=== PATIENT | female | born 1940 | race Caucasian/White ===

== ENCOUNTER 2017-07-19 15:29 | Inpatient (IN) | payer MEDICARE, OTHER ==
[~2017-07-19] VITALS: Ht 160 cm; Wt 86.2 kg
[2017-07-19 16:49] LABS: CLARITY,URINE TURBID (CLEAR); COLOR,URINE RED (YELLOW); LEUKOCYTE ESTERASE ,URINE 1+ (NEGATIVE); NITRITE,URINE NEGATIVE (NEGATIVE)
[2017-07-19 16:50] LABS: BILIRUBIN,URINE 2+ (NEGATIVE); KETONES,URINE NEGATIVE (NEGATIVE); PROTEIN,URINE DIPSTICK 3+ (NEGATIVE); URINE UROBILINOGEN 0.2 mg/dL (0.2 - 1)
[2017-07-19 17:00] LABS: AMORPHOUS SEDIMENT,URINE FEW (FEW); BACTERIA,URINE FEW /HPF; EPITHELIAL CELLS,URINE RARE /LPF; MUCUS,URINE FEW (RARE); RBC,URINE >50 /HPF (0-5)
[2017-07-19] MEDS ORDERED: SODIUM CHLORIDE 0.9% 50ML 50 ML ONE (20:43)
[2017-07-19] MEDS ORDERED: IOPAMIDOL 370 MG/ML 200 ML INFUS..BTL INJ ONE (20:44)
[2017-07-19 21:46] LABS: RED BLOOD COUNT 3.84 x10e6/uL (3.6-5.1)
[2017-07-19 21:47] LABS: ANION GAP 15.1 mmol/L (8-16); BLOOD UREA NITROGEN 20 mg/dL (7-26); BUN/CREATININE RATIO 29 (6-25); CARBON DIOXIDE 27 mmol/L (22-29); CHLORIDE 103 mmol/L (98-107); EOSINOPHILS % 0.1 % (0.0-6.0); EST GLOMERULAR FILTRATION RATE > 60 ML/MIN (60-); HEMATOCRIT 27.2 % (34.2-44.1); HEMOGLOBIN 7.9 g/dL (12.0-16.0); LYMPHOCYTES % 1.2 % (18.0-39.1); MEAN CORPUSCULAR HEMOGLOBIN 20.6 pg (28-32); MEAN CORPUSCULAR VOLUME 70.8 fL (81-99); MONOCYTES % 0.4 % (4.4-11.3); NEUTROPHILS % 2.8 % (38.7-80.0); PLATELET COUNT 132 x10e3/uL (140-360); POTASSIUM 4.1 mmol/L (3.5-5.1); RED CELL DISTRIBUTION WIDTH 17.5 % (11.7-14.4); SODIUM 141 mmol/L (136-145)
[2017-07-19 21:48] LABS: ALANINE AMINOTRANSFERASE 13 IU/L (0-55); ALBUMIN 3.6 g/dL (3.5-5.0); ALBUMIN/GLOBULIN RATIO 1.2 (0.8-2.0); ALKALINE PHOSPHATASE 45 IU/L (40-150); CALCIUM 9.2 mg/dL (8.4-10.2); GLUCOSE 260 mg/dL (74-118)
[2017-07-19] MEDS ORDERED: SODIUM CHLORIDE 0.9% 100 ML ONE (22:12)
--- NOTE | 2017-07-19 22:16 | Diagnostic Imaging Report ---
EXAM: CT ABDOMEN AND PELVIS with and without IV CONTRAST DATE: 07/19/2017 6:06 PM Time stamp on Exam: 2109 hours INDICATION: Blood in urine COMPARISON: None TECHNIQUE: The abdomen and pelvis were scanned using a multidetector helical scanner. Coronal and sagittal reformations were obtained. CT Urogram protocol performed. IV Contrast: 100 cc Isovue-370 Oral Contrast: None CTDIvol has been reviewed. It is below the limits set by the Radiation Protocol Committee (RPC). FINDINGS: RIGHT KIDNEY: * No nephroureterolithiasis. * No enhancing masses. * Adequate opacification of the ureter. Normal in course and caliber without filling defect. * No hydronephrosis. The calyces are sharp without filling defect. * Simple cyst measuring 1.7 cm posterior lateral aspect of the superior pole LEFT KIDNEY: * No nephroureterolithiasis. * No enhancing masses. * Adequate opacification of the ureter. Normal in course and caliber without filling defect. * No hydronephrosis. The calyces are sharp without filling defect. BLADDER: Mixed density filling defect in the bladder measuring approximately 6 cm. REPRODUCTIVE ORGANS: Unremarkable LOWER THORAX: No consolidations LIVER: No masses BILIARY: Cholelithiasis without evidence of acute cholecystitis. No ductal dilatation. SPLEEN: No masses PANCREAS: No masses ADRENALS: No nodules GI TRACT: No distention, wall thickening or evidence of obstruction. VESSELS: Atherosclerotic changes without aneurysm. PERITONEUM/RETROPERITONEUM: No free air or fluid LYMPH NODES: No lymphadenopathy SOFT TISSUES: Unremarkable BONES: No suspicious bone lesions. IMPRESSION: There is an approximately 6 cm irregular mixed density filling defect in the bladder. The differential includes blood clot and/or bladder mass. Urology consult is recommended for further evaluation. No nephroureterolithiasis or ureteral filling defect. Signed by: Dr. Shania Estrada M.D. on 07/19/2017 10:13 PM
[2017-07-19] MEDS ORDERED: SODIUM CHLORIDE 0.9% 250ML 250 ML IV ONE (22:45)
[2017-07-19] MEDS ORDERED: FUROSEMIDE INJ 10 MG/ML 2 ML VIAL IV PRN (22:45)
[2017-07-19] MEDS: SODIUM CHLORIDE 0.9% 1000ML 1,000 ML IV SCH (23:06)
[2017-07-19] MEDS ORDERED: ONDANSETRON HCL 4 MG ORAL DISINTEGRATING TAB PO PRN (23:15)
[2017-07-19] MEDS ORDERED: DEXTROSE 50% SYRINGE 50 ML IV PRN (23:15)
--- OUTSIDE RECORDS SUMMARY | 2017-07-19 23:15 | XMS REPORT ---
[facility] Address Unknown Phone Unavailable Care Team Providers Care Professor Of Theater Name Role Phone HERNANDEZ MARSH Unavailable Unavailable Problems This patient has no known problems. Allergies, Adverse Reactions, Alerts This patient has no known allergies or adverse reactions. Medications This patient has no known medications. Results Test Description Test Time Test Comments Text Results Atomic Results Result Comments CT ABDOMEN/PELVIS WOW [place] [address] Patient Name: VERN CHU MR #: [id number] : 1940 Age/Sex: 76/F Req #: [id number] Adm Physician: Ordered by: SANDER MARLOW NP Report #: [id number] Location: ER Room/Bed: Procedure: [id number] CT/CT ABDOMEN/PELVIS WOW Exam Date: 07/19/17 Exam Time: 2110 REPORT STATUS: Signed EXAM: CT ABDOMEN AND PELVIS with and without IV CONTRAST DATE: 07/19/2017 6:06 PM Time stamp on Exam: 2109 hours INDICATION: Blood in urine COMPARISON: None TECHNIQUE: The abdomen and pelvis were scanned using a multidetector helical scanner. Coronal and sagittal reformations were obtained. CT Urogram protocol performed. IV Contrast: 100 cc Isovue-370 Oral Contrast: None CTDIvol has been reviewed. It is below the limits set by the Radiation Protocol Committee (RPC). FINDINGS: RIGHT KIDNEY: * No nephroureterolithiasis. * No enhancing masses. * Adequate opacification of the ureter. Normal in course and caliber without filling defect. * No hydronephrosis. The calyces are sharp without filling defect. * Simple cyst measuring 1.7 cm posterior lateral aspect of the superior pole LEFT KIDNEY: * No nephroureterolithiasis. * No enhancing masses. * Adequate opacification of the ureter. Normal in course and caliber without filling defect. * No hydronephrosis. The calyces are sharp without filling defect. BLADDER: Mixed density filling defect in the bladder measuring approximately 6 cm. REPRODUCTIVE ORGANS: Unremarkable LOWER THORAX: No consolidations LIVER: No masses BILIARY: Cholelithiasis without evidence of acute cholecystitis. No ductal dilatation. SPLEEN: No masses PANCREAS: No masses ADRENALS: No nodules GI TRACT: No distention, wall thickening or evidence of obstruction. VESSELS: Atherosclerotic changes without aneurysm. PERITONEUM/RETROPERITONEUM : No free air or fluid LYMPH NODES: No lymphadenopathy SOFT TISSUES: Unremarkable BONES: No suspicious bone lesions. IMPRESSION: There is an approximately 6 cm irregular mixed density filling defect in the bladder. The differential includes blood clot and/or bladder mass. Urology consult is recommended for further evaluation. No nephroureterolithiasis or ureteral filling defect. Signed by: Dr. Bhavesh Estrada M.D. on 07/19/2017 10:13 PM Dictated By: BHAVESH ESTRADA MD 12 Transcribed By: LILLIAN on 07/19/172212 COPY TO: SANDER MARLOW NP
[2017-07-19] MEDS: CEFTRIAXONE SOD 1 GM VIAL IV SCH (23:18)
[2017-07-20] VITALS (9 sets, daily range): BP systolic 124–149; BP diastolic 56–67
[2017-07-20] MEDS: INSULIN REGULAR, HUMAN 100 UNIT/1 ML 3ML VIAL SQ SCH ×5 (06:37→23:58)
[2017-07-20] MEDS ORDERED: NITROSTAT0.4 MG SL (08:43)
[2017-07-20] MEDS ORDERED: LANTUS 3ML100 UNITS/ SC (08:43)
[2017-07-20] MEDS ORDERED: CARVEDILOL3.125 MG PO (08:43)
[2017-07-20] MEDS ORDERED: NEXIUM40 MG PO (08:43)
[2017-07-20] MEDS ORDERED: POTASSIUM CHLO10 ME1 PO (08:43)
[2017-07-20] MEDS ORDERED: METFORMIN HCL850 MG PO (08:43)
[2017-07-20] MEDS ORDERED: LASIX20 MG PO (08:43)
[2017-07-20] MEDS ORDERED: HUMALOG100 UNIT/1 SC (08:43)
[2017-07-20] MEDS ORDERED: ASPIR 8181 MG PO (08:43)
[2017-07-20] MEDS ORDERED: CRESTOR10 MG PO (08:43)
[2017-07-20] MEDS ORDERED: GABAPENTIN100 MG PO (08:43)
[2017-07-20] MEDS ORDERED: VICTOZA 2-0.6 MG/0.1 SC (08:43)
[2017-07-20] MEDS ORDERED: BELLADONNA/OPIUM 60 MG SUPP PR PRN (09:30)
[2017-07-20] MEDS: SODIUM CHLORIDE 0.9% 1000ML 1,000 ML IV SCH ×2 (09:33→19:06)
[2017-07-20] MEDS ORDERED: NITROGLYCERIN 0.4 MG SUBL SL PRN (10:00)
[2017-07-20 10:18] LABS: BASOPHILS % 0.5 % (0.0-1.0); EOSINOPHILS # (AUTO) 0.2 (0.0-0.4); EOSINOPHILS % 2.5 % (0.0-6.0); HEMATOCRIT 33.2 % (34.2-44.1); HEMOGLOBIN 10.1 g/dL (12.0-16.0); LYMPHOCYTES # (AUTO) 1.3 (1.0-3.2); LYMPHOCYTES % 20.4 % (18.0-39.1); MEAN CORPUSCULAR HEMOGLOBIN 21.9 pg (28-32); MEAN CORPUSCULAR HGB CONC 30.4 g/dL (31-35); MEAN CORPUSCULAR VOLUME 71.9 fL (81-99); MONOCYTES # (AUTO) 0.6 (0.2-0.8); MONOCYTES % 9.7 % (4.4-11.3); NEUTROPHILS # (AUTO) 4.2 (2.1-6.9); NEUTROPHILS % 66.7 % (38.7-80.0); PLATELET COUNT 124 x10e3/uL (140-360); RED BLOOD COUNT 4.62 x10e6/uL (3.6-5.1)
[2017-07-20 10:34] LABS: ALANINE AMINOTRANSFERASE 14 IU/L (0-55); ALBUMIN 3.3 g/dL (3.5-5.0); ALKALINE PHOSPHATASE 42 IU/L (40-150); ANION GAP 13.4 mmol/L (8-16); BLOOD UREA NITROGEN 12 mg/dL (7-26); BUN/CREATININE RATIO 18 (6-25); CALCIUM 8.9 mg/dL (8.4-10.2); CARBON DIOXIDE 30 mmol/L (22-29); CHLORIDE 102 mmol/L (98-107); CREATININE, SERUM 0.66 mg/dL (0.57-1.11); EST GLOMERULAR FILTRATION RATE > 60 ML/MIN (60-); GLUCOSE 213 mg/dL (74-118); POTASSIUM 4.4 mmol/L (3.5-5.1); SODIUM 141 mmol/L (136-145)
[2017-07-20] MEDS: CEFTRIAXONE SOD 1 GM VIAL IV SCH ×2 (11:51→22:46)
[2017-07-20] MEDS: INSULIN LISPRO 100 UNIT/1 ML 3ML VIAL SQ SCH ×2 (12:31→17:21)
[2017-07-20] MEDS ORDERED: NON-FORMULARY MEDICATION (Insulin Lispro (Humalog) 20 UNIT) SC SCH (15:00)
[2017-07-20] MEDS: METFORMIN HCL 850 MG TAB PO SCH (17:00)
[2017-07-20] MEDS: CARVEDILOL 3.125 MG TAB PO SCH (17:19)
[2017-07-20] MEDS: GABAPENTIN 100 MG CAP PO SCH (17:20)
[2017-07-20] MEDS: INSULIN DETEMIR 100 UNIT/ML PEN SQ SCH (20:49)
[2017-07-20] MEDS: SIMVASTATIN 20 MG TAB PO SCH (20:49)
[2017-07-20] MEDS: MORPHINE SULFATE 2 MG/ML SYR IV PRN (22:44)
[2017-07-21] VITALS: BP 147/70
[2017-07-21] MEDS: SODIUM CHLORIDE 0.9% 1000ML 1,000 ML IV SCH ×2 (03:24→15:31)
[2017-07-21 04:00] VITALS: BP 163/79
[2017-07-21] MEDS: INSULIN REGULAR, HUMAN 100 UNIT/1 ML 3ML VIAL SQ SCH ×4 (05:58→20:45)
[2017-07-21 07:30] VITALS: BP 128/63
[2017-07-21] MEDS: INSULIN LISPRO 100 UNIT/1 ML 3ML VIAL SQ SCH ×3 (07:30→16:30)
[2017-07-21] MEDS: METFORMIN HCL 850 MG TAB PO SCH ×2 (08:00→17:13)
[2017-07-21] MEDS: CARVEDILOL 3.125 MG TAB PO SCH ×2 (08:58→17:13)
[2017-07-21] MEDS ORDERED: SIMVASTATIN 40 MG TAB PO SCH (09:00)
[2017-07-21] MEDS: LIRAGLUTIDE 1.8 MG SC SCH (09:00)
[2017-07-21] MEDS: GABAPENTIN 100 MG CAP PO SCH ×2 (09:00→17:13)
[2017-07-21] MEDS: CEFTRIAXONE SOD 1 GM VIAL IV SCH ×2 (10:33→22:40)
[2017-07-21 11:03] VITALS: BP 128/63
[2017-07-21] MEDS ORDERED: IOPAMIDOL 610MG/1ML 300 MG/ML VIAL IV ONE (11:55)
[2017-07-21] MEDS ORDERED: BELLADONNA/OPIUM 60 MG SUPP PR ONE (12:15)
[2017-07-21] MEDS ORDERED: FENTANYL CITRATE/PF 100MCG/2 ML INJ ONE (13:25)
[2017-07-21] MEDS: MORPHINE SULFATE 2 MG/ML SYR IV PRN (14:11)
[2017-07-21 16:27] VITALS: BP 148/75
[2017-07-21] MEDS: PANTOPRAZOLE SOD 40 MG TABEC PO SCH (17:12)
[2017-07-21] MEDS: FUROSEMIDE 20 MG TAB PO SCH (17:12)
[2017-07-21] MEDS: POTASSIUM CHLORIDE 10 MEQ TABCR PO SCH (17:12)
[2017-07-21] MEDS ORDERED: LIDOCAINE HCL 2% LOCAL INJ 5 ML SDV VIAL INJ ONE (17:25)
[2017-07-21] MEDS ORDERED: ONDANSETRON HCL INJ 2 MG/ML VIAL ONE (17:25)
[2017-07-21] MEDS ORDERED: PROPOFOL IV EMULSION 10 MG/ML 20 ML VIAL ONE (17:25)
[2017-07-21] MEDS ORDERED: SEVOFLURANE INHAL SOLN 250 ML PEN BTL ONE (17:25)
[2017-07-21 20:00] VITALS: BP 114/53
[2017-07-21] MEDS: INSULIN DETEMIR 100 UNIT/ML PEN SQ SCH (20:45)
[2017-07-21] MEDS: SIMVASTATIN 20 MG TAB PO SCH (20:45)
[2017-07-22] VITALS (7 sets, daily range): BP systolic 120–141; BP diastolic 56–95
[2017-07-22] MEDS: SODIUM CHLORIDE 0.9% 1000ML 1,000 ML IV SCH ×4 (03:00→21:06)
[2017-07-22 07:09] LABS: BASOPHILS % 0.5 % (0.0-1.0); EOSINOPHILS # (AUTO) 0.2 (0.0-0.4); EOSINOPHILS % 3.4 % (0.0-6.0); HEMATOCRIT 31.4 % (34.2-44.1); HEMOGLOBIN 9.3 g/dL (12.0-16.0); LYMPHOCYTES # (AUTO) 1.3 (1.0-3.2); LYMPHOCYTES % 20.6 % (18.0-39.1); MEAN CORPUSCULAR HEMOGLOBIN 21.7 pg (28-32); MEAN CORPUSCULAR HGB CONC 29.6 g/dL (31-35); MEAN CORPUSCULAR VOLUME 73.4 fL (81-99); MONOCYTES # (AUTO) 0.6 (0.2-0.8); MONOCYTES % 9.3 % (4.4-11.3); NEUTROPHILS # (AUTO) 4.1 (2.1-6.9); NEUTROPHILS % 65.7 % (38.7-80.0); PLATELET COUNT 116 x10e3/uL (140-360); RED BLOOD COUNT 4.28 x10e6/uL (3.6-5.1); RED CELL DISTRIBUTION WIDTH 19.4 % (11.7-14.4)
[2017-07-22 07:44] LABS: ANION GAP 12.3 mmol/L (8-16); BLOOD UREA NITROGEN 6 mg/dL (7-26); BUN/CREATININE RATIO 9 (6-25); CALCIUM 8.4 mg/dL (8.4-10.2); CARBON DIOXIDE 28 mmol/L (22-29); CHLORIDE 108 mmol/L (98-107); CREATININE, SERUM 0.65 mg/dL (0.57-1.11); EST GLOMERULAR FILTRATION RATE > 60 ML/MIN (60-); GLUCOSE 160 mg/dL (74-118); POTASSIUM 4.3 mmol/L (3.5-5.1); SODIUM 144 mmol/L (136-145)
[2017-07-22] MEDS: INSULIN LISPRO 100 UNIT/1 ML 3ML VIAL SQ SCH ×3 (08:00→19:19)
[2017-07-22] MEDS: INSULIN REGULAR, HUMAN 100 UNIT/1 ML 3ML VIAL SQ SCH ×4 (08:00→22:45)
[2017-07-22] MEDS ORDERED: SODIUM CHLORIDE 0.9% 250ML 250 ML IV ONE (08:15)
[2017-07-22 08:42] LABS: ANISOCYTOSIS SLIGHT; ELLIPTOCYTE, RBC SLIGHT; HYPOCHROMASIA SLIGHT; PLATELET ESTIMATE SLIGHTLY DECREASED; PLATELET MORPHOLOGY COMMENT FEW LARGE; RBC MORPHOLOGY COMMENT NORMAL
[2017-07-22] MEDS: LIRAGLUTIDE 1.8 MG SC SCH (09:00)
[2017-07-22] MEDS: METFORMIN HCL 850 MG TAB PO SCH ×2 (09:06→19:21)
[2017-07-22] MEDS: FUROSEMIDE 20 MG TAB PO SCH (09:07)
[2017-07-22] MEDS: POTASSIUM CHLORIDE 10 MEQ TABCR PO SCH (09:07)
[2017-07-22] MEDS: PANTOPRAZOLE SOD 40 MG TABEC PO SCH (09:07)
[2017-07-22] MEDS: GABAPENTIN 100 MG CAP PO SCH ×2 (09:08→19:21)
[2017-07-22] MEDS: CARVEDILOL 3.125 MG TAB PO SCH ×2 (09:08→19:21)
[2017-07-22] MEDS: CEFTRIAXONE SOD 1 GM VIAL IV SCH ×2 (12:39→23:39)
[2017-07-22] MEDS: SIMVASTATIN 20 MG TAB PO SCH (22:45)
[2017-07-22] MEDS: INSULIN DETEMIR 100 UNIT/ML PEN SQ SCH (22:45)
[2017-07-23] VITALS: BP 127/59
[2017-07-23 04:00] VITALS: BP 152/78
[2017-07-23 05:26] LABS: BASOPHILS % 0.5 % (0.0-1.0); EOSINOPHILS # (AUTO) 0.3 (0.0-0.4); EOSINOPHILS % 4.1 % (0.0-6.0); HEMATOCRIT 36.5 % (34.2-44.1); HEMOGLOBIN 10.9 g/dL (12.0-16.0); LYMPHOCYTES # (AUTO) 1.3 (1.0-3.2); LYMPHOCYTES % 19.3 % (18.0-39.1); MEAN CORPUSCULAR HEMOGLOBIN 22.4 pg (28-32); MEAN CORPUSCULAR HGB CONC 29.9 g/dL (31-35); MEAN CORPUSCULAR VOLUME 75.1 fL (81-99); MONOCYTES # (AUTO) 0.6 (0.2-0.8); MONOCYTES % 8.3 % (4.4-11.3); NEUTROPHILS # (AUTO) 4.5 (2.1-6.9); NEUTROPHILS % 67.5 % (38.7-80.0); PLATELET COUNT 110 x10e3/uL (140-360); RED BLOOD COUNT 4.86 x10e6/uL (3.6-5.1); RED CELL DISTRIBUTION WIDTH 20.2 % (11.7-14.4)
[2017-07-23 05:45] LABS: ANION GAP 13.7 mmol/L (8-16); BLOOD UREA NITROGEN 7 mg/dL (7-26); BUN/CREATININE RATIO 11 (6-25); CALCIUM 8.5 mg/dL (8.4-10.2); CARBON DIOXIDE 26 mmol/L (22-29); CHLORIDE 105 mmol/L (98-107); CREATININE, SERUM 0.64 mg/dL (0.57-1.11); EST GLOMERULAR FILTRATION RATE > 60 ML/MIN (60-); GLUCOSE 176 mg/dL (74-118); POTASSIUM 3.7 mmol/L (3.5-5.1); SODIUM 141 mmol/L (136-145)
[2017-07-23] MEDS: INSULIN LISPRO 100 UNIT/1 ML 3ML VIAL SQ SCH ×3 (07:30→17:50)
[2017-07-23] MEDS: INSULIN REGULAR, HUMAN 100 UNIT/1 ML 3ML VIAL SQ SCH ×5 (07:30→21:41)
[2017-07-23 08:28] VITALS: BP 167/80
[2017-07-23] MEDS: LIRAGLUTIDE 1.8 MG SC SCH ×2 (09:00→17:30)
[2017-07-23] MEDS: SODIUM CHLORIDE 0.9% 1000ML 1,000 ML IV SCH ×2 (09:06→17:17)
[2017-07-23] MEDS: CARVEDILOL 3.125 MG TAB PO SCH ×2 (09:32→17:14)
[2017-07-23] MEDS: PANTOPRAZOLE SOD 40 MG TABEC PO SCH (09:43)
[2017-07-23] MEDS: GABAPENTIN 100 MG CAP PO SCH ×2 (09:43→17:17)
[2017-07-23] MEDS: CEFTRIAXONE SOD 1 GM VIAL IV SCH ×2 (09:46→22:35)
[2017-07-23 12:00] VITALS: BP 145/63
[2017-07-23] MEDS: METFORMIN HCL 850 MG TAB PO SCH ×2 (12:20→17:17)
[2017-07-23] MEDS: POTASSIUM CHLORIDE 10 MEQ TABCR PO SCH (12:20)
[2017-07-23] MEDS: FUROSEMIDE 20 MG TAB PO SCH (12:20)
[2017-07-23 14:53] VITALS: BP 145/63
[2017-07-23 20:00] VITALS: BP 122/60
[2017-07-23] MEDS: INSULIN DETEMIR 100 UNIT/ML PEN SQ SCH (21:42)
[2017-07-23] MEDS: SIMVASTATIN 20 MG TAB PO SCH (21:58)
[2017-07-24] VITALS (8 sets, daily range): BP systolic 122–169; BP diastolic 58–78
[2017-07-24] MEDS: SODIUM CHLORIDE 0.9% 1000ML 1,000 ML IV SCH ×3 (03:06→23:06)
[2017-07-24] MEDS: INSULIN REGULAR, HUMAN 100 UNIT/1 ML 3ML VIAL SQ SCH ×4 (07:30→21:10)
[2017-07-24] MEDS: FUROSEMIDE 20 MG TAB PO SCH (08:44)
[2017-07-24] MEDS: LIRAGLUTIDE 1.8 MG SC SCH (08:44)
[2017-07-24] MEDS: INSULIN LISPRO 100 UNIT/1 ML 3ML VIAL SQ SCH ×3 (08:44→16:30)
[2017-07-24] MEDS: GABAPENTIN 100 MG CAP PO SCH ×2 (08:44→16:58)
[2017-07-24] MEDS: PANTOPRAZOLE SOD 40 MG TABEC PO SCH (08:44)
[2017-07-24] MEDS: CARVEDILOL 3.125 MG TAB PO SCH ×2 (08:44→16:58)
[2017-07-24] MEDS: METFORMIN HCL 850 MG TAB PO SCH ×2 (08:44→16:58)
[2017-07-24] MEDS: POTASSIUM CHLORIDE 10 MEQ TABCR PO SCH (08:45)
[2017-07-24 08:49] LABS: BASOPHILS % 0.5 % (0.0-1.0); EOSINOPHILS # (AUTO) 0.3 (0.0-0.4); EOSINOPHILS % 4.5 % (0.0-6.0); HEMATOCRIT 34.5 % (34.2-44.1); HEMOGLOBIN 10.6 g/dL (12.0-16.0); LYMPHOCYTES # (AUTO) 1.1 (1.0-3.2); MEAN CORPUSCULAR HEMOGLOBIN 22.6 pg (28-32); MEAN CORPUSCULAR HGB CONC 30.7 g/dL (31-35); MEAN CORPUSCULAR VOLUME 73.7 fL (81-99); MONOCYTES # (AUTO) 0.5 (0.2-0.8); MONOCYTES % 7.8 % (4.4-11.3); NEUTROPHILS # (AUTO) 4.2 (2.1-6.9); NEUTROPHILS % 68.9 % (38.7-80.0); PLATELET COUNT 117 x10e3/uL (140-360); RED BLOOD COUNT 4.68 x10e6/uL (3.6-5.1); RED CELL DISTRIBUTION WIDTH 20.7 % (11.7-14.4)
[2017-07-24 09:02] LABS: ANION GAP 13.4 mmol/L (8-16); BLOOD UREA NITROGEN 5 mg/dL (7-26); BUN/CREATININE RATIO 9 (6-25); CALCIUM 8.8 mg/dL (8.4-10.2); CARBON DIOXIDE 25 mmol/L (22-29); CHLORIDE 104 mmol/L (98-107); CREATININE, SERUM 0.58 mg/dL (0.57-1.11); EST GLOMERULAR FILTRATION RATE > 60 ML/MIN (60-); GLUCOSE 149 mg/dL (74-118); POTASSIUM 3.4 mmol/L (3.5-5.1); SODIUM 139 mmol/L (136-145)
[2017-07-24 10:35] LABS: PLATELET ESTIMATE SLIGHTLY DECREASED
[2017-07-24 10:36] LABS: LARGE PLATELETS RARE; RBC MORPHOLOGY COMMENT NORMAL
[2017-07-24] MEDS ORDERED: POTASSIUM CHLORIDE 10 MEQ TABCR PO ONE (12:00)
[2017-07-24] MEDS: BELLADONNA/OPIUM 60 MG SUPP PR PRN (12:01)
[2017-07-24] MEDS: SIMVASTATIN 20 MG TAB PO SCH (21:20)
[2017-07-24] MEDS: INSULIN DETEMIR 100 UNIT/ML PEN SQ SCH (21:50)
[2017-07-24] MEDS: CEFTRIAXONE SOD 1 GM VIAL IV SCH (21:50)
[2017-07-25] VITALS (8 sets, daily range): BP systolic 116–166; BP diastolic 56–84
[2017-07-25] MEDS: BELLADONNA/OPIUM 60 MG SUPP PR PRN ×2 (00:55→11:44)
[2017-07-25 07:08] LABS: BASOPHILS % 0.6 % (0.0-1.0); EOSINOPHILS # (AUTO) 0.3 (0.0-0.4); EOSINOPHILS % 5.3 % (0.0-6.0); HEMATOCRIT 30.9 % (34.2-44.1); HEMOGLOBIN 9.3 g/dL (12.0-16.0); LYMPHOCYTES # (AUTO) 1.1 (1.0-3.2); LYMPHOCYTES % 20.5 % (18.0-39.1); MEAN CORPUSCULAR HEMOGLOBIN 22.8 pg (28-32); MEAN CORPUSCULAR HGB CONC 30.1 g/dL (31-35); MEAN CORPUSCULAR VOLUME 75.7 fL (81-99); MONOCYTES # (AUTO) 0.5 (0.2-0.8); MONOCYTES % 9.2 % (4.4-11.3); NEUTROPHILS # (AUTO) 3.4 (2.1-6.9); NEUTROPHILS % 63.8 % (38.7-80.0); PLATELET COUNT 89 x10e3/uL (140-360); RED BLOOD COUNT 4.08 x10e6/uL (3.6-5.1); RED CELL DISTRIBUTION WIDTH 20.5 % (11.7-14.4)
[2017-07-25 07:41] LABS: ANION GAP 11.6 mmol/L (8-16); BLOOD UREA NITROGEN 7 mg/dL (7-26); BUN/CREATININE RATIO 12 (6-25); CALCIUM 8.8 mg/dL (8.4-10.2); CARBON DIOXIDE 29 mmol/L (22-29); CHLORIDE 101 mmol/L (98-107); EST GLOMERULAR FILTRATION RATE > 60 ML/MIN (60-); GLUCOSE 175 mg/dL (74-118); POTASSIUM 3.6 mmol/L (3.5-5.1); SODIUM 138 mmol/L (136-145)
[2017-07-25] MEDS: METFORMIN HCL 850 MG TAB PO SCH ×2 (08:43→17:06)
[2017-07-25] MEDS: INSULIN LISPRO 100 UNIT/1 ML 3ML VIAL SQ SCH ×3 (08:44→17:07)
[2017-07-25] MEDS: SODIUM CHLORIDE 0.9% 1000ML 1,000 ML IV SCH (08:44)
[2017-07-25] MEDS: LIRAGLUTIDE 1.8 MG SC SCH (08:44)
[2017-07-25] MEDS: CARVEDILOL 3.125 MG TAB PO SCH ×2 (08:44→17:06)
[2017-07-25] MEDS: POTASSIUM CHLORIDE 10 MEQ TABCR PO SCH (08:44)
[2017-07-25] MEDS: PANTOPRAZOLE SOD 40 MG TABEC PO SCH (08:44)
[2017-07-25] MEDS: FUROSEMIDE 20 MG TAB PO SCH (08:44)
[2017-07-25] MEDS: GABAPENTIN 100 MG CAP PO SCH ×2 (08:45→17:06)
[2017-07-25] MEDS: INSULIN REGULAR, HUMAN 100 UNIT/1 ML 3ML VIAL SQ SCH ×4 (08:45→21:00)
[2017-07-25 11:15] LABS: LARGE PLATELETS RARE; PLATELET ESTIMATE SLIGHTLY DECREASED
[2017-07-25 11:16] LABS: ANISOCYTOSIS SLIGHT; MICROCYTOSIS SLIGHT; RBC MORPHOLOGY COMMENT NORMAL
[2017-07-25] MEDS: INSULIN DETEMIR 100 UNIT/ML PEN SQ SCH (21:00)
[2017-07-25] MEDS: SIMVASTATIN 20 MG TAB PO SCH (21:54)
[2017-07-25] MEDS: CEFTRIAXONE SOD 1 GM VIAL IV SCH (21:54)
[2017-07-26] VITALS (8 sets, daily range): BP systolic 108–152; BP diastolic 55–65
[2017-07-26 06:41] LABS: BASOPHILS % 0.7 % (0.0-1.0); EOSINOPHILS # (AUTO) 0.2 (0.0-0.4); EOSINOPHILS % 3.9 % (0.0-6.0); HEMATOCRIT 29.4 % (34.2-44.1); HEMOGLOBIN 8.9 g/dL (12.0-16.0); LYMPHOCYTES # (AUTO) 1.2 (1.0-3.2); LYMPHOCYTES % 20.8 % (18.0-39.1); MEAN CORPUSCULAR HEMOGLOBIN 22.4 pg (28-32); MEAN CORPUSCULAR HGB CONC 30.3 g/dL (31-35); MEAN CORPUSCULAR VOLUME 74.1 fL (81-99); MONOCYTES # (AUTO) 0.5 (0.2-0.8); MONOCYTES % 9.1 % (4.4-11.3); NEUTROPHILS # (AUTO) 3.7 (2.1-6.9); NEUTROPHILS % 65.3 % (38.7-80.0); PLATELET COUNT 106 x10e3/uL (140-360); RED BLOOD COUNT 3.97 x10e6/uL (3.6-5.1); RED CELL DISTRIBUTION WIDTH 20.7 % (11.7-14.4)
[2017-07-26 07:05] LABS: ALANINE AMINOTRANSFERASE 13 IU/L (0-55); ALBUMIN/GLOBULIN RATIO 1.1 (0.8-2.0); ALKALINE PHOSPHATASE 43 IU/L (40-150); ANION GAP 14.5 mmol/L (8-16); BLOOD UREA NITROGEN 8 mg/dL (7-26); BUN/CREATININE RATIO 13 (6-25); CALCIUM 9.1 mg/dL (8.4-10.2); CARBON DIOXIDE 29 mmol/L (22-29); CHLORIDE 100 mmol/L (98-107); CREATININE, SERUM 0.62 mg/dL (0.57-1.11); EST GLOMERULAR FILTRATION RATE > 60 ML/MIN (60-); GLUCOSE 208 mg/dL (74-118); POTASSIUM 3.5 mmol/L (3.5-5.1); SODIUM 140 mmol/L (136-145)
[2017-07-26 08:00] LABS: LARGE PLATELETS FEW; PLATELET ESTIMATE MODERATELY DECREASED; RBC MORPHOLOGY COMMENT NORMAL
[2017-07-26] MEDS: GABAPENTIN 100 MG CAP PO SCH ×2 (08:31→17:18)
[2017-07-26] MEDS: LIRAGLUTIDE 1.8 MG SC SCH (08:31)
[2017-07-26] MEDS: PANTOPRAZOLE SOD 40 MG TABEC PO SCH (08:31)
[2017-07-26] MEDS: FUROSEMIDE 20 MG TAB PO SCH (08:31)
[2017-07-26] MEDS: POTASSIUM CHLORIDE 10 MEQ TABCR PO SCH (08:31)
[2017-07-26] MEDS: METFORMIN HCL 850 MG TAB PO SCH ×2 (08:32→17:18)
[2017-07-26] MEDS: CARVEDILOL 3.125 MG TAB PO SCH ×2 (08:32→17:20)
[2017-07-26] MEDS: INSULIN REGULAR, HUMAN 100 UNIT/1 ML 3ML VIAL SQ SCH ×4 (08:33→21:00)
[2017-07-26] MEDS: INSULIN LISPRO 100 UNIT/1 ML 3ML VIAL SQ SCH ×3 (08:33→17:17)
[2017-07-26] MEDS ORDERED: HYDROMORPHONE 1MG/1ML INJ IV PRN (12:30)
[2017-07-26] MEDS: HYDROMORPHONE 2MG/ML INJ IV PRN ×3 (13:05→21:31)
[2017-07-26] MEDS: INSULIN DETEMIR 100 UNIT/ML PEN SQ SCH (21:00)
[2017-07-26] MEDS: SIMVASTATIN 20 MG TAB PO SCH (21:30)
[2017-07-26] MEDS: CEFTRIAXONE SOD 1 GM VIAL IV SCH (22:09)
[2017-07-27] VITALS (7 sets, daily range): BP systolic 97–150; BP diastolic 52–67
[2017-07-27] MEDS: LIRAGLUTIDE 1.8 MG SC SCH (08:27)
[2017-07-27] MEDS: METFORMIN HCL 850 MG TAB PO SCH ×2 (08:37→16:55)
[2017-07-27] MEDS: POTASSIUM CHLORIDE 10 MEQ TABCR PO SCH (08:38)
[2017-07-27] MEDS: PANTOPRAZOLE SOD 40 MG TABEC PO SCH (08:38)
[2017-07-27] MEDS: GABAPENTIN 100 MG CAP PO SCH ×2 (08:38→16:55)
[2017-07-27] MEDS: FUROSEMIDE 20 MG TAB PO SCH (08:38)
[2017-07-27] MEDS: CARVEDILOL 3.125 MG TAB PO SCH ×2 (08:38→16:55)
[2017-07-27] MEDS: INSULIN REGULAR, HUMAN 100 UNIT/1 ML 3ML VIAL SQ SCH ×4 (08:39→21:44)
[2017-07-27] MEDS: INSULIN LISPRO 100 UNIT/1 ML 3ML VIAL SQ SCH ×3 (08:40→16:48)
[2017-07-27] MEDS: HYDROMORPHONE 2MG/ML INJ IV PRN ×3 (09:40→19:26)
[2017-07-27] MEDS: SIMVASTATIN 20 MG TAB PO SCH (21:42)
[2017-07-27] MEDS: INSULIN DETEMIR 100 UNIT/ML PEN SQ SCH (21:45)
[2017-07-27] MEDS: CEFTRIAXONE SOD 1 GM VIAL IV SCH (21:45)
[2017-07-28] VITALS (8 sets, daily range): BP systolic 92–162; BP diastolic 50–67
[2017-07-28 06:56] LABS: BASOPHILS % 0.5 % (0.0-1.0); EOSINOPHILS # (AUTO) 0.3 (0.0-0.4); EOSINOPHILS % 4.4 % (0.0-6.0); HEMOGLOBIN 8.5 g/dL (12.0-16.0); LYMPHOCYTES # (AUTO) 1.4 (1.0-3.2); LYMPHOCYTES % 24.3 % (18.0-39.1); MEAN CORPUSCULAR HGB CONC 30.4 g/dL (31-35); MEAN CORPUSCULAR VOLUME 75.9 fL (81-99); MONOCYTES # (AUTO) 0.6 (0.2-0.8); MONOCYTES % 10.5 % (4.4-11.3); NEUTROPHILS # (AUTO) 3.4 (2.1-6.9); NEUTROPHILS % 59.8 % (38.7-80.0); PLATELET COUNT 92 x10e3/uL (140-360); RED BLOOD COUNT 3.69 x10e6/uL (3.6-5.1); RED CELL DISTRIBUTION WIDTH 21.2 % (11.7-14.4)
[2017-07-28 07:28] LABS: BLOOD UREA NITROGEN 12 mg/dL (7-26); BUN/CREATININE RATIO 17 (6-25); CALCIUM 9.3 mg/dL (8.4-10.2); CARBON DIOXIDE 33 mmol/L (22-29); CHLORIDE 96 mmol/L (98-107); CREATININE, SERUM 0.72 mg/dL (0.57-1.11); EST GLOMERULAR FILTRATION RATE > 60 ML/MIN (60-); GLUCOSE 197 mg/dL (74-118); SODIUM 137 mmol/L (136-145)
[2017-07-28] MEDS: INSULIN LISPRO 100 UNIT/1 ML 3ML VIAL SQ SCH ×3 (07:30→16:35)
[2017-07-28] MEDS: INSULIN REGULAR, HUMAN 100 UNIT/1 ML 3ML VIAL SQ SCH ×5 (07:30→21:20)
[2017-07-28] MEDS: LIRAGLUTIDE 1.8 MG SC SCH (07:40)
[2017-07-28] MEDS: METFORMIN HCL 850 MG TAB PO SCH ×2 (07:40→16:34)
[2017-07-28] MEDS: CARVEDILOL 3.125 MG TAB PO SCH ×2 (07:40→16:34)
[2017-07-28] MEDS: PANTOPRAZOLE SOD 40 MG TABEC PO SCH (07:40)
[2017-07-28] MEDS: GABAPENTIN 100 MG CAP PO SCH ×2 (07:40→16:34)
[2017-07-28] MEDS: FUROSEMIDE 20 MG TAB PO SCH (07:40)
[2017-07-28] MEDS: POTASSIUM CHLORIDE 10 MEQ TABCR PO SCH (07:40)
[2017-07-28] MEDS ORDERED: FUROSEMIDE INJ 10 MG/ML 2 ML VIAL IV PRN (07:45)
[2017-07-28] MEDS ORDERED: SODIUM CHLORIDE 0.9% 500ML 500 ML ONE (08:59)
[2017-07-28 09:35] LABS: PLATELET ESTIMATE SLIGHTLY DECREASED; PLATELET MORPHOLOGY COMMENT FEW GIANT; RBC MORPHOLOGY COMMENT NORMAL
[2017-07-28 09:36] LABS: ANISOCYTOSIS SLIGHT
[2017-07-28] MEDS ORDERED: BELLADONNA/OPIUM 60 MG SUPP PR ONE (12:59)
[2017-07-28] MEDS ORDERED: FENTANYL CITRATE/PF 100MCG/2 ML INJ ONE ×2 (14:31→19:42)
[2017-07-28] MEDS ORDERED: PROPOFOL IV EMULSION 10 MG/ML 20 ML VIAL ONE (14:41)
[2017-07-28] MEDS ORDERED: SEVOFLURANE INHAL SOLN 250 ML PEN BTL ONE (14:41)
[2017-07-28] MEDS ORDERED: DEXAMETHASONE SOD PHOS INJ 4 MG/ML VIAL ONE (14:41)
[2017-07-28] MEDS ORDERED: ONDANSETRON HCL INJ 2 MG/ML VIAL ONE (14:41)
[2017-07-28] MEDS ORDERED: LIDOCAINE HCL 2% LOCAL INJ 5 ML SDV VIAL INJ ONE (14:41)
[2017-07-28] MEDS ORDERED: MIDAZOLAM HCL 2 MG/2 ML VIAL ONE (19:42)
[2017-07-28] MEDS: SIMVASTATIN 20 MG TAB PO SCH (20:43)
[2017-07-28] MEDS: INSULIN DETEMIR 100 UNIT/ML PEN SQ SCH (22:00)
[2017-07-28] MEDS: HYDROMORPHONE 2MG/ML INJ IV PRN (22:15)
[2017-07-28] MEDS: CEFTRIAXONE SOD 1 GM VIAL IV SCH (22:38)
[2017-07-29] VITALS (8 sets, daily range): BP systolic 118–139; BP diastolic 56–63
[2017-07-29] MEDS: CARVEDILOL 3.125 MG TAB PO SCH ×2 (08:44→17:14)
[2017-07-29] MEDS: METFORMIN HCL 850 MG TAB PO SCH ×2 (08:44→17:14)
[2017-07-29] MEDS: INSULIN LISPRO 100 UNIT/1 ML 3ML VIAL SQ SCH ×3 (08:44→17:30)
[2017-07-29] MEDS: POTASSIUM CHLORIDE 10 MEQ TABCR PO SCH (08:44)
[2017-07-29] MEDS: GABAPENTIN 100 MG CAP PO SCH ×2 (08:44→17:14)
[2017-07-29] MEDS: FUROSEMIDE 20 MG TAB PO SCH (08:44)
[2017-07-29] MEDS: PANTOPRAZOLE SOD 40 MG TABEC PO SCH (08:44)
[2017-07-29] MEDS: INSULIN REGULAR, HUMAN 100 UNIT/1 ML 3ML VIAL SQ SCH ×4 (08:45→21:00)
[2017-07-29] MEDS: LIRAGLUTIDE 1.8 MG SC SCH (12:30)
[2017-07-29] MEDS: HYDROMORPHONE 2MG/ML INJ IV PRN ×2 (14:30→21:00)
[2017-07-29] MEDS: PHENAZOPYRIDINE HCL 100 MG TAB PO PRN (17:30)
[2017-07-29] MEDS: SIMVASTATIN 20 MG TAB PO SCH (21:18)
[2017-07-29] MEDS: INSULIN DETEMIR 100 UNIT/ML PEN SQ SCH (21:55)
[2017-07-29] MEDS: CEFTRIAXONE SOD 1 GM VIAL IV SCH (22:48)
[2017-07-30] VITALS: BP 112/57
[2017-07-30 04:00] VITALS: BP 144/65
[2017-07-30 07:59] VITALS: BP 131/58
[2017-07-30] MEDS: FUROSEMIDE 20 MG TAB PO SCH (08:47)
[2017-07-30] MEDS: LIRAGLUTIDE 1.8 MG SC SCH (08:47)
[2017-07-30] MEDS: METFORMIN HCL 850 MG TAB PO SCH (08:47)
[2017-07-30] MEDS: CARVEDILOL 3.125 MG TAB PO SCH (08:47)
[2017-07-30] MEDS: PANTOPRAZOLE SOD 40 MG TABEC PO SCH (08:47)
[2017-07-30] MEDS: GABAPENTIN 100 MG CAP PO SCH (08:47)
[2017-07-30] MEDS ORDERED: BISACODYL 10 MG SUPP PR ONE (09:00)
[2017-07-30] MEDS: INSULIN REGULAR, HUMAN 100 UNIT/1 ML 3ML VIAL SQ SCH ×2 (09:04→12:00)
[2017-07-30] MEDS: INSULIN LISPRO 100 UNIT/1 ML 3ML VIAL SQ SCH ×2 (09:04→12:00)
[2017-07-30] MEDS: POTASSIUM CHLORIDE 10 MEQ TABCR PO SCH (09:05)
[2017-07-30] MEDS: PHENAZOPYRIDINE HCL 100 MG TAB PO PRN (10:42)
[2017-07-30 11:51] VITALS: BP 151/99
--- NOTE | 2017-09-08 01:29 | Discharge Summary ---
CHIEF COMPLAINT: Anemia, hematuria. FINAL DIAGNOSES: 1. Carcinoma of bladder, status post resection of bladder lesion. 2. Coronary artery disease. 3. Diabetes type 2. PROCEDURES: 1. Transfusion. 2. Cystoscopy, retrograde pyelogram. 3. Cystoscopy, transurethral resection of bladder tumor. DISPOSITION: Home. HOSPITAL COURSE: A 76-year-old female with known history of diabetes type 2, coronary artery disease, hyperlipidemia, brought to the ER with a 2-week history of gross hematuria. Denies any dysuria or polyuria or increased urgency. Complains of no pain, no dizziness. No dyspnea or lightheadedness. Underwent review and evaluation in the ER. Chest was revealing inspiratory rhonchi. Data and x-rays were performed. CT of the abdomen was showing findings of possible bladder mass versus blood clot. Would warrant further review. The patient was admitted to the facility for evaluation of hematuria, anemia due to blood loss, coronary artery disease, diabetes type 2, hyperlipidemia. Will be type and crossmatching the patient for packed RBCs. Will request a urology consult. Be monitoring the patient's blood sugar. Home medications will be continued as well. From the ER, patient was placed on the med/surg floor, started on NPO status. Was being reviewed by Dr. Eddy, urology, due the patient's hematuria. Had an appointment with Dr. Eddy in December of last year, but missed the appointment. Was started on IV fluids, IV Lasix. Given ceftriaxone 1 g IV q.12. Morphine sulfate was being administered for pain. Insulin management was being directed q.6 h. The patient was being typed and crossmatched for packed RBCs. Initial hemoglobin was 7.9. With review by Dr. Eddy, his impression was hematuria, gross versus clot retention; obesity; anemia. Currently awaiting clearing of the urine. Will need a cystoscopy with retrograde. Procedure was carried out on July 21, 2017, by Dr. Eddy. Postop diagnoses were evidence of hematuria, large bladder CA. The patient underwent cystoscopy and retrograde pyelograms as well as transurethral resection of the bladder tumor. The patient is now on her normal regular daily medications. Further diabetic management was met with detemir 30 units nightly, metformin 850 b.i.d. with meals, lispro 20 units t.i.d. a.c. Laboratory studies now revealing electrolytes to be stable. Kidney functions stable. Glucose 213. Hemoglobin post transfusion was 10.1, white cell count was normal. The patient has onboard Tyler post procedure. It was noted post procedure that hematuria was persisting, however, it was less severe. Continues to require irrigation of the Tyler on a regular basis by the nursing staff. Her aspirin has been stopped. She has been typed and crossmatched for 1 unit of packed RBCs. With the persistent hematuria, patient was being directed for repeat procedure by Dr. Eddy. Followup blood sugar 176. She was continued on her antibiotic coverage. Continue on her Tyler support. Patient per Dr. Eddy was being scheduled for return visit as mentioned to the OR in 1 week. Now, it was noted that her potassium was trending down. The level was noted to be at 3.4 on July 24. She was started on potassium replacement and repeat potassium was at 3.6 on July 25. Continues to have a bloody appearing urine on her collection bag. She was complaining of pain in the pelvic region. Analgesic issues were being addressed. Also was receiving belladonna 60 mg q.6. Hemoglobin trended down to 8.9. The value was noted on July 27. Now, on July 27, it was noted that she had gross blood in her Tyler. Now receiving the transfusion of packed RBCs. Her second procedure was carried out on July 28, 2017, by Dr. Eddy where she underwent the transurethral resection of the bladder tumor which was noted to be quite large along with clot evacuation. All tumors were resected. Clots were evacuated. The patient returned to recovery room in good condition. Post procedure, she was resting comfortably. Bladder was being maintained with Tyler control with continued irrigation. The hematuria improved. Discussions were being carried out for discharge planning. She was cleared for release and she was discharged on July 30, 2017, in stable condition. She received 5 units of packed cells during her course of stay. EKG shows normal sinus rhythm, T-wave abnormality, consider inferolateral ischemia. On this admission, she underwent [address] Eddy. Post procedure showed improvement in her urine. Still being maintained on the Tyler for the hematuria. It cleared up. She was able to be released home. On July 30, 2017, at home she will continue on her current diet. Continue with her Tyler catheter and she was instructed that she may shower with her Tyler catheter. No bathing. No drains were necessary. Activity level as directed by myself as well as Dr. Eddy. She was given a prescription for Tylenol No. 3 with codeine 1 tablet q.4 h. p.r.n. for pain, Ceftin 250 one tablet p.o. b.i.d., Ditropan 5 mg 1 tablet p.o. b.i.d. She will also be continuing her daily medications of carvedilol 3.125 twice a day, Nexium 40 mg daily, Lasix 20 mg daily, gabapentin 100 mg twice a day, Lantus 30 units at bedtime, Humalog 20 units t.i.d. a.c., Victoza 18 units daily, metformin 850 mg twice a day, Nitrostat 0.4 mg sublingual q.5 minutes times 3 for chest pain, potassium chloride 10 mEq daily, Crestor 20 mg daily. As mentioned, she was discharged with her Tyler in place. She will be following back up with Dr. Eddy in 1 to 2 weeks. If she develops recurrence of bleeding in her bag, she will be contacting Dr. Eddy immediately. She will be following back up with me in my office within 2 weeks. Dictated By: AARON Wagoner. Job#: [id number] GE
--- NOTE | 2017-09-13 03:54 | Operative Report ---
DATE OF PROCEDURE: July 28, 2017 PREOPERATIVE DIAGNOSIS: Bladder cancer. POSTOPERATIVE DIAGNOSIS: Bladder cancer. OPERATION PERFORMED: Cystourethroscopy with transurethral resection of large bladder tumor from the left lateral wall and left anterior wall. This procedure was made more complicated by the significant extent of this tumor and its sheer size, requiring more extensive resection than one would normally expect with a tumor size larger than 5 cm. ANESTHESIA: General. COMPLICATIONS: None. CLINICAL SUMMARY: Please refer to prior operative report. This patient has bladder cancer. It is muscle invasive. She is brought to the operating room to perform another resection and hopefully render her tumor free. She is aware of the risks of bleeding, infection, injury to adjacent structures, need for additional procedures, and elected to proceed. OPERATIVE PROCEDURE IN DETAIL: Informed consent was verified. Svitlana Gill was properly identified, taken to the operating room, and placed on the cystoscopy table in supine position. Anesthesia was uneventfully begun. The patient was then carefully and gently re-positioned in dorsal lithotomy position with all pressure points well padded. Her genitalia were prepared and draped in the usual sterile fashion. The resectoscope sheath was placed with the obturator in place. Panendoscopy of the urinary bladder revealed clots. We evacuated the clots. We then proceeded with performing transurethral resection of the residual bladder cancer from the left lateral wall and left anterior wall. This was a rather extensive dissection of the tumor well over 5 cm in size. We resected all the tumor, included muscle in the specimen and verified perfect hemostasis. We evacuated all chips. Tyler catheter was placed and the patient was uneventfully reversed from anesthesia and taken to the recovery room in stable condition. There were no complications to the procedure. She tolerated the procedure well. Explicit postop instructions were given. We will follow the patient up in the office. Job#: [id number]
--- NOTE | 2017-09-14 21:49 | Operative Report ---
DATE OF PROCEDURE: July 21, 2017 PREOPERATIVE DIAGNOSIS: Gross hematuria. POSTOPERATIVE DIAGNOSES: 1. Gross hematuria. 2. Bladder cancer from the left lateral wall and anterior bladder wall. 3. Grade 2 rectocele. 4. Atrophic (senile) vaginitis. OPERATIONS PERFORMED: 1. Cystourethroscopy with bilateral ureteral catheterization and retrograde ureteropyelography (separate procedure performed for the hematuria). 2. Interpretation of retrograde ureteropyelography. 3. Supervision of fluoroscopy, no radiologist present. 4. Cystourethroscopy with transurethral resection of large bladder tumor (separate procedure performed for the bladder tumor). 5. Pelvic examination under anesthesia. ANESTHESIA: General. COMPLICATIONS: None. CLINICAL SUMMARY: Svitlana Gill is a 76-year-old woman who was noncompliant with followup appointments. The patient had hematuria and failed to followup. Eventually, she developed severe gross hematuria, and followed up promptly in a panic. The patient was instructed to report to the emergency room where she was evaluated, found to have a tumor by CT. She was then brought to the operating room for evaluation and management. She is aware of the risks of bleeding, infection, injury to adjacent structures, need for additional procedures, and elected to proceed. OPERATIVE PROCEDURE IN DETAIL: Informed consent was verified. Svitlana Gill was properly identified, taken to the operating room, and placed on the cystoscopy table in supine position. Anesthesia was uneventfully begun. Patient was then carefully and gently repositioned in the dorsal lithotomy position with all pressure points well padded. Her genitalia were prepared and draped in usual sterile fashion. The 22.5-Iraqi cystoscope sheath with the obturator in place was atraumatically inserted in patient's urethra and bladder was drained. Panendoscopy of the urinary bladder revealed large bladder tumor well over 5 cm in size extending throughout the left lateral wall, anterior to the ureteral orifice as well as the left side of the anterior bladder wall near the bladder neck. Besides this tumor region, no additional tumors could be identified. Normally positioned and configured ureteral orifices were noted. An 8-Iraqi catheter was used to cannulate each ureter, and retrograde ureteral pyelograms were performed. Interpretation of retrograde ureteropyelography: Contrast was instilled in retrograde fashion bilaterally. There were no tumors, no stones, no diverticula. Unobstructed drainage was observed bilaterally fluoroscopically. There were no filling defects. Bubbles were introduced and these were noted to be draining out. 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 Unobstructed drainage was observed bilaterally fluoroscopically. The resectoscope was placed and then we proceeded with performing transurethral resection of the bladder tumor. We performed rather extensive resection of approximately 3/4 of this very large bladder tumor. We obtained excellent hemostasis as well as muscle tissue. We felt that now that we have obtained hemostasis, there is no point in attempting to prolong this patient's surgery and risk hyponatremia. Should the patient have muscle invasive cancer, cystectomy would be warranted, and additional transurethral resection would not benefit the patient. Therefore, we decided to end this procedure at this point in time having achieved hemostasis. Following evacuation of all bladder cancer chips, we placed a Tyler catheter in place. It was irrigated to and fro to ensure it worked properly. Pelvic examination under anesthesia revealed a grade 2 rectocele, no cystocele. There was atrophic (senile) vaginitis. There were no abnormal palpable pelvic masses, and the bladder was not fixed in any way. The patient was then uneventfully reversed from anesthesia and taken to recovery room in stable condition. There were no complications to the procedure. She tolerated the procedure well. Will follow the patient postoperatively diligently. Job#: [id number]
== END 2017-07-30 14:15 | disposition home health service (06) | DRG 669 ==
LOC: ER 15:29 → ERHOLD 23:13 → MED/SURG 07-20 00:25
PROC: 30233N1 Transfusion of Nonautologous Red Blood Cells into Peripheral Vein, Percutaneous Approach (ICD-10-PCS; 2017-07-20)
PROC: 0TBB8ZZ Excision of Bladder, Via Natural or Artificial Opening Endoscopic (ICD-10-PCS; principal; 2017-07-21 11:56)
PROC: 0TBB8ZZ Excision of Bladder, Via Natural or Artificial Opening Endoscopic (ICD-10-PCS; 2017-07-28)
DX: C67.3 Malignant neoplasm of anterior wall of bladder (principal); D62 Acute posthemorrhagic anemia; N39.0 Urinary tract infection, site not specified; C67.2 Malignant neoplasm of lateral wall of bladder; R31.0 Gross hematuria; E11.9 Type 2 diabetes mellitus without complications; I25.10 Atherosclerotic heart disease of native coronary artery without angina pectoris; E66.9 Obesity, unspecified; Z68.33 Body mass index [BMI] 33.0-33.9, adult; N28.1 Cyst of kidney, acquired; N95.2 Postmenopausal atrophic vaginitis; Z88.0 Allergy status to penicillin; Z88.8 Allergy status to other drugs, medicaments and biological substances; N81.6 Rectocele; N32.89 Other specified disorders of bladder; I10 Essential (primary) hypertension; I25.2 Old myocardial infarction
CPT/HCPCS: 36415; 36430; 51703; 74178; 74420; 80048; 80053; 81001; 82948; 85025; 86850; 86900; 86920; 87040; 87086; 87186; 88305; 88307; 93005; 96361; 96372; 99284; J0696; J1100; J1940; J2001; J2250; J2270; J2405; J7030; J7040; J7050; P9016; Q9967

== ENCOUNTER → 2017-09-03 | Day surgery (SDC) | payer MEDICARE, OTHER ==
[2017-08-31 09:14] LABS: BASOPHILS % 0.9 % (0.0-1.0); EOSINOPHILS # (AUTO) 0.2 (0.0-0.4); EOSINOPHILS % 4.8 % (0.0-6.0); HEMATOCRIT 35.3 % (34.2-44.1); HEMOGLOBIN 10.9 g/dL (12.0-16.0); LYMPHOCYTES # (AUTO) 1.1 (1.0-3.2); LYMPHOCYTES % 23.9 % (18.0-39.1); MEAN CORPUSCULAR HEMOGLOBIN 23.9 pg (28-32); MEAN CORPUSCULAR HGB CONC 30.9 g/dL (31-35); MEAN CORPUSCULAR VOLUME 77.2 fL (81-99); MONOCYTES # (AUTO) 0.4 (0.2-0.8); MONOCYTES % 9.1 % (4.4-11.3); NEUTROPHILS # (AUTO) 2.8 (2.1-6.9); NEUTROPHILS % 61.1 % (38.7-80.0); PLATELET COUNT 148 x10e3/uL (140-360); RED BLOOD COUNT 4.57 x10e6/uL (3.6-5.1); RED CELL DISTRIBUTION WIDTH 20.7 % (11.7-14.4)
[2017-08-31 09:31] LABS: ANION GAP 14.6 mmol/L (8-16); BLOOD UREA NITROGEN 15 mg/dL (7-26); BUN/CREATININE RATIO 19 (6-25); CALCIUM 9.7 mg/dL (8.4-10.2); CARBON DIOXIDE 30 mmol/L (22-29); CHLORIDE 99 mmol/L (98-107); CREATININE, SERUM 0.78 mg/dL (0.57-1.11); EST GLOMERULAR FILTRATION RATE > 60 ML/MIN (60-); GLUCOSE 274 mg/dL (74-118); POTASSIUM 4.6 mmol/L (3.5-5.1); SODIUM 139 mmol/L (136-145)
[2017-08-31 10:09] LABS: ANISOCYTOSIS SLIGHT; ELLIPTOCYTE, RBC SLIGHT; HYPOCHROMASIA SLIGHT; PLATELET ESTIMATE SLIGHTLY DECREASED; RBC MORPHOLOGY COMMENT NORMAL
[2017-08-31 10:10] LABS: PLATELET MORPHOLOGY COMMENT FEW LARGE
--- NOTE | 2017-08-31 15:01 | Diagnostic Imaging Report ---
PROCEDURE: X-RAY CHEST, TWO VIEWS COMPARISON: None. INDICATIONS: PREOPERATIVE CHEST XRAY FOR BLADDER SURGERY FINDINGS: The lungs are well-inflated. No focal airspace consolidation, pleural effusion, or pneumothorax. Tortuosity and atherosclerotic calcification of the thoracic aorta. Left anterior descending coronary artery calcifications versus stents. Normal heart size. No pulmonary edema. No acute osseous abnormality. CONCLUSION: No acute thoracic abnormality. Atherosclerotic vascular disease. Dictated by: Jose Cedeño M.D. on 08/31/2017 at 10:05 Electronically approved by: Jose Cedeño M.D. on 08/31/2017 at 10:05
[~2017-09-03] MED LIST: ASPIR 8181 MG PO; BELLADONNA/OPIUM 30 MG SUPP RC ONE; CARVEDILOL3.125 MG PO; CRESTOR10 MG PO; DESFLURANE 240 ML BTL INH ONE; DEXAMETHASONE SOD PHOS INJ 4 MG/ML VIAL ONE; FENTANYL CITRATE/PF 100MCG/2 ML INJ ONE; GABAPENTIN100 MG PO; HUMALOG100 UNIT/1 SC; INSULIN REGULAR, HUMAN 100 UNIT/1 ML 3ML VIAL ONE; IOPAMIDOL 610MG/1ML 300 MG/ML VIAL IV ONE; LANTUS 3ML100 UNITS/ SC; LASIX20 MG PO; LEVOFLOXACIN 500MG/D5W 100ML 100 ML IV ONE; LIDOCAINE HCL 2% LOCAL INJ 5 ML SDV VIAL INJ ONE; METFORMIN HCL850 MG PO; NEXIUM40 MG PO; NITROSTAT0.4 MG SL; ONDANSETRON HCL INJ 2 MG/ML VIAL ONE; POTASSIUM CHLO10 ME1 PO; PROPOFOL IV EMULSION 10 MG/ML 20 ML VIAL ONE; VICTOZA 2-0.6 MG/0.1 SC
--- NOTE | 2017-10-11 05:23 | Operative Report ---
DATE OF PROCEDURE: September 03, 2017 PREOPERATIVE DIAGNOSES 1. Bladder cancer of the lateral wall. 2. Gross hematuria. POSTOPERATIVE DIAGNOSES 1. Bladder cancer of the lateral wall. 2. Gross hematuria. 3. Grade 3 rectocele. 4. Atrophic (senile) vaginitis. OPERATIONS PERFORMED 1. Cystourethroscopy with directed bladder biopsies of the prior tumor base, as well as posterior wall (separate procedure performed to rule out any residual or recurrent bladder cancer). 2. Cystourethroscopy with bilateral ureteral catheterization and retrograde ureteropyelography (separate procedure performed to evaluate the upper tracts in light of the hematuria). 3. Interpretation retrograde ureteropyelography. 4. Supervision of fluoroscopy. No radiologist present. 5. Pelvic examination under anesthesia. ANESTHESIA: General. COMPLICATIONS: None. CLINICAL SUMMARY: Svitlana Gill is a 76-year-old woman who had gross hematuria that was long-standing and failure to follow up. The patient eventually followed up once she had severe gross hematuria and was scared. She was subsequently admitted. Was found to have a large bladder tumor. She underwent resection over 2 separate sessions. She is brought to the operating room to evaluate for any residual or recurrent bladder cancer. She is aware the risks of bleeding, infection, injury to adjacent structures, need for additional procedures, and elected to proceed. OPERATIVE PROCEDURE IN DETAIL: Informed consent was verified. Svitlana Gill was properly identified and taken to the operating room and placed on the cystoscopy table in the supine position. Anesthesia was uneventfully begun. The patient was then carefully and gently repositioned in the dorsal lithotomy position with all pressure points well-padded. Her genitalia were prepared and draped in the usual sterile fashion. The 22.5-Omani cystoscope sheath with obturator in place was atraumatically inserted in the patient's urethra and the bladder was drained. Panendoscopy of the urinary bladder revealed some mucosal changes to the left lateral wall, as well as posterior wall. The left lateral wall was the location of the previous cancer. Directed bladder biopsies were taken of the prior tumor base, as well as the posterior wall region. We then utilized the Bugbee electrode to fulgurate the entire region, as well as the biopsy base as well as any abnormal mucosa surrounding the region. Once this was performed, excellent hemostasis was verified. A ureteral catheter was used to cannulate each ureter, and retrograde ureteropyelograms were performed. Interpretation of retrograde ureteropyelography. Contrast was instilled in a retrograde fashion bilaterally. There were no tumors. No stones and no diverticula. Unobstructed drainage was observed bilaterally fluoroscopically. The patient's bladder was then drained. The cystoscope was withdrawn. Pelvic examination under anesthesia revealed a grade 3 rectocele. No cystocele. There was atrophic (senile) vaginitis present. No suspicious mucosal lesions were identified. No abnormal palpable pelvic masses could be appreciated. The patient was then uneventfully reversed from anesthesia and taken to the recovery room in stable condition. There were no complications to the procedure. The patient tolerated the procedure well. Explicit postoperative instructions were given. Will follow the patient up in the office. Job#: [id number] cc:AMNA RODRIGUEZ MD
== END | disposition home or self-care (01) ==
LOC: OR 07:44
PROVIDERS: ATTEND Urology
DX: C67.2 Malignant neoplasm of lateral wall of bladder (principal); N30.80 Other cystitis without hematuria; N81.6 Rectocele; N95.2 Postmenopausal atrophic vaginitis; R35.1 Nocturia; R81 Glycosuria; E11.9 Type 2 diabetes mellitus without complications; I25.10 Atherosclerotic heart disease of native coronary artery without angina pectoris; I10 Essential (primary) hypertension; E66.01 Morbid (severe) obesity due to excess calories; Z88.0 Allergy status to penicillin; Z88.8 Allergy status to other drugs, medicaments and biological substances; Z01.810 Encounter for preprocedural cardiovascular examination; Z01.812 Encounter for preprocedural laboratory examination; Z01.818 Encounter for other preprocedural examination; Z79.4 Long term (current) use of insulin; Z79.82 Long term (current) use of aspirin; Z68.30 Body mass index [BMI] 30.0-30.9, adult; Z95.5 Presence of coronary angioplasty implant and graft
CPT/HCPCS: 36415 ×2; 52214; 71046; 74420; 80048; 82948; 85025; 88305; 93005; C1758; J1100; J1956; J2001; J2405; Q9967; 88304

== ENCOUNTER 2017-09-24 11:57 | Emergency (ER) | payer MEDICARE, OTHER ==
[~2017-09-24] VITALS: Ht 160 cm; Wt 83.5 kg
[~2017-09-24 11:57] MED LIST changes: -BELLADONNA/OPIUM 30 MG SUPP RC ONE; -DESFLURANE 240 ML BTL INH ONE; -DEXAMETHASONE SOD PHOS INJ 4 MG/ML VIAL ONE; -FENTANYL CITRATE/PF 100MCG/2 ML INJ ONE; -INSULIN REGULAR, HUMAN 100 UNIT/1 ML 3ML VIAL ONE; -IOPAMIDOL 610MG/1ML 300 MG/ML VIAL IV ONE; -LEVOFLOXACIN 500MG/D5W 100ML 100 ML IV ONE; -LIDOCAINE HCL 2% LOCAL INJ 5 ML SDV VIAL INJ ONE; -ONDANSETRON HCL INJ 2 MG/ML VIAL ONE; -PROPOFOL IV EMULSION 10 MG/ML 20 ML VIAL ONE
== END 2017-09-24 13:04 | disposition home or self-care (01) ==
LOC: ER 11:57
DX: B02.9 Zoster without complications (principal); I10 Essential (primary) hypertension; E11.9 Type 2 diabetes mellitus without complications; I25.10 Atherosclerotic heart disease of native coronary artery without angina pectoris; E03.9 Hypothyroidism, unspecified; E78.5 Hyperlipidemia, unspecified; I25.2 Old myocardial infarction; Z95.5 Presence of coronary angioplasty implant and graft
CPT/HCPCS: 99283

== ENCOUNTER → 2018-04-12 | Outpatient (CLI) | payer OTHER ==
[~2018-04-12] MED LIST changes: +IOPAMIDOL 370 MG/ML 200 ML INFUS..BTL INJ ONE; +SODIUM CHLORIDE 0.9% 50ML 50 ML ONE
--- NOTE | 2018-04-12 11:39 | Diagnostic Imaging Report ---
EXAMINATION: CT of the abdomen and pelvis with contrast. TECHNIQUE: Spiral CT images of the abdomen and pelvis were performed from the lung bases to the lesser trochanters after the intravenous administration of 100 cc Isovue-370. Coronal and sagittal reformatted images were obtained. COMPARISON: CT abdomen and pelvis with and without contrast 07/19/2017 CLINICAL HISTORY:Lower abdominal pain DISCUSSION: ABDOMEN/PELVIS: LOWER THORAX:Calcified granuloma right lower lobe area atherosclerotic coronary artery calcifications partially visualized. HEPATOBILIARY: No focal hepatic lesions. No intra-or extrahepatic biliary ductal dilation. Large peripherally calcified calculus in the gallbladder lumen. No wall thickening or inflammatory change SPLEEN: Multiple subcentimeter hypoattenuating foci within the spleen, unchanged compared to 07/19/2017 and too small to further characterize. PANCREAS: No focal masses or ductal dilatation. ADRENALS: No adrenal nodules. KIDNEYS/URETERS: Simple cyst upper pole right kidney. No additional focal renal lesions. No calculi or hydronephrosis. PELVIC ORGANS/BLADDER: Urinary bladder is unremarkable. Previously described filling defect from the examination of 07/19/2017 in the urinary bladder is no longer evident. Uterus is neutral in position with arcuate artery calcifications. No adnexal mass. PERITONEUM/RETROPERITONEUM: No free air or fluid. LYMPH NODES: No pelvic sidewall, retroperitoneal, or mesenteric lymphadenopathy. VESSELS: Atherosclerotic calcification of the abdominal aorta, major branch vessels, and iliac arterial systems without aneurysmal dilatation. Portal vein, splenic vein, and central superior mesenteric vein are patent. GI TRACT: The large bowel shows no evidence of distention or wall thickening. There are scattered diverticula along the sigmoid colon without wall thickening or adjacent inflammation. The large bowel is markedly redundant. The appendix is not definitively identified. The stomach is collapsed with prominence of the rugal folds. No small bowel dilatation to suggest obstruction. BONES AND SOFT TISSUE: No osseous destructive lesions. Calcified injection granuloma in the right gluteal soft tissues otherwise no focal soft tissue abnormalities. IMPRESSION: No acute intra-abdominal or pelvic CT abnormalities. Sigmoid diverticulosis without diverticulitis. Cholelithiasis without findings of acute cholecystitis. Atherosclerotic vascular disease. Signed by: Dr. Jose Cedeño M.D. on 04/12/2018 11:36 AM
== END ==
LOC: CT 09:14
DX: R10.9 Unspecified abdominal pain (principal); I25.10 Atherosclerotic heart disease of native coronary artery without angina pectoris; E11.9 Type 2 diabetes mellitus without complications
CPT/HCPCS: 74177; Q9967

== ENCOUNTER → 2018-06-13 | Day surgery (SDC) | payer OTHER, MEDICARE ==
[2018-06-10 14:19] LABS: BASOPHILS % 0.3 % (0.0-1.0); EOSINOPHILS # (AUTO) 0.2 (0.0-0.4); EOSINOPHILS % 3.8 % (0.0-6.0); HEMATOCRIT 37.4 % (34.2-44.1); HEMOGLOBIN 11.7 g/dL (12.0-16.0); LYMPHOCYTES # (AUTO) 1.6 (1.0-3.2); LYMPHOCYTES % 27.9 % (18.0-39.1); MEAN CORPUSCULAR HEMOGLOBIN 27.2 pg (28-32); MEAN CORPUSCULAR HGB CONC 31.3 g/dL (31-35); MONOCYTES # (AUTO) 0.5 (0.2-0.8); MONOCYTES % 8.2 % (4.4-11.3); NEUTROPHILS # (AUTO) 3.4 (2.1-6.9); NEUTROPHILS % 59.6 % (38.7-80.0); PLATELET COUNT 154 x10e3/uL (140-360)
[2018-06-10 14:35] LABS: ALANINE AMINOTRANSFERASE 20 IU/L (0-55); ALBUMIN 3.7 g/dL (3.5-5.0); ALBUMIN/GLOBULIN RATIO 1.1 (0.8-2.0); ALKALINE PHOSPHATASE 43 IU/L (40-150); ANION GAP 13.7 mmol/L (8-16); BLOOD UREA NITROGEN 17 mg/dL (7-26); BUN/CREATININE RATIO 22 (6-25); CALCIUM 9.4 mg/dL (8.4-10.2); CARBON DIOXIDE 29 mmol/L (22-29); CHLORIDE 103 mmol/L (98-107); CREATININE, SERUM 0.76 mg/dL (0.57-1.11); EST GLOMERULAR FILTRATION RATE > 60 ML/MIN (60-); GLUCOSE 148 mg/dL (74-118); POTASSIUM 4.7 mmol/L (3.5-5.1); SODIUM 141 mmol/L (136-145)
[~2018-06-13] MED LIST changes: +BUPIVACAINE 0.25%/EPI 30ML SDV INJ ONE; +DEXAMETHASONE SOD PHOS INJ 4 MG/ML VIAL ONE; +FENTANYL CITRATE/PF 100MCG/2 ML INJ ONE; +HYDRALAZINE HCL 20 MG/ML VIAL ONE; +HYDROMORPHONE 2MG/ML 2 MG/ML ML ONE; -IOPAMIDOL 370 MG/ML 200 ML INFUS..BTL INJ ONE; +KETOROLAC TROMETHAMINE 30 MG/ML VIAL ONE; +LIDOCAINE HCL 2% LOCAL INJ 5 ML SDV VIAL INJ ONE; +LISINOPRIL2.5 MG PO; +MIDAZOLAM HCL 2 MG/2 ML VIAL ONE; +ONDANSETRON HCL INJ 2MG/ML 2ML 2 MG/ML VIAL ONE; +PROPOFOL IV EMULSION 10 MG/ML 20 ML VIAL ONE; +SEVOFLURANE INHAL SOLN 250 ML PEN BTL ONE; -SODIUM CHLORIDE 0.9% 50ML 50 ML ONE
[2018-06-13 14:50] VITALS: BP 112/53
--- NOTE | 2018-06-13 19:14 | Operative Report ---
DATE OF PROCEDURE: 06/13/2018 SURGEON: Eric Caban MD PREOPERATIVE DIAGNOSIS: Paget's disease of the right breast. POSTOPERATIVE DIAGNOSIS: Paget's disease of the right breast. OPERATION PERFORMED: Right simple mastectomy with right axillary lymph node sampling. [employer]: ILDA Tripathi. ANESTHESIA: General. COMPLICATIONS: None. ESTIMATED BLOOD LOSS: 25 mL. DESCRIPTION OF PROCEDURE: With the patient lying in bed in the supine position under good general anesthesia, the right breast and chest were prepped with Betadine solution and draped in the usual manner. An elliptical incision was made to include the nipple areolar complex and all the pagetoid changes that were present on the skin. Incision was deepened through the subcutaneous tissue and then flaps were developed in all directions. Borders of the flaps were superiorly the clavicle, medially the sternum, inferiorly the rectus fascia, and laterally the latissimus dorsi. The breast tissue was then taken off the pectoralis muscle slowly and carefully, probed medial to lateral. The lateral border of the pectoralis major muscle was then freed up from the breast and the breast was slowly and carefully mobilized. At this point, it became evident, the patient had some enlarged lymph nodes in the axilla and some of these were incorporated into the specimen. One whom was a rather large lymph node and this was separately taken and marked as an apical lymph node from the right axilla and sent for pathological examination. All bleeding points were electrocoagulated or ligated with 3-0 silk. The specimen was properly marked and sent for pathological examination and once hemostasis was ascertained, a 10 flat Alfonso-Morillo drain was placed over the pectoralis muscle and brought through separate stab wound incision and sutured to the skin with 2-0 silk and the skin was then closed with interrupted vertical mattress sutures of 2-0 and 3-0 silk. The dressing was applied. The sponge, lap, and needle count was correct. The patient tolerated the procedure well and returned to the recovery room in stable condition. Eric Caban MD JLR/MODL /[id number]
== END | disposition home or self-care (01) ==
LOC: OR 07:28
PROVIDERS: ATTEND Surgery
DX: C44.591 Other specified malignant neoplasm of skin of breast (principal); Z17.0 Estrogen receptor positive status [ER+]; I25.10 Atherosclerotic heart disease of native coronary artery without angina pectoris; I10 Essential (primary) hypertension; E11.9 Type 2 diabetes mellitus without complications; Z88.0 Allergy status to penicillin; Z88.8 Allergy status to other drugs, medicaments and biological substances; Z01.810 Encounter for preprocedural cardiovascular examination; Z01.812 Encounter for preprocedural laboratory examination; Z79.82 Long term (current) use of aspirin; Z79.4 Long term (current) use of insulin
CPT/HCPCS: 19307; 36415 ×2; 80053; 82948; 85025; 88305; 88307; 93005; J0360; J1100; J1170; J1885; J2001; J2250; J2405; J2704; 88304

== ENCOUNTER → 2019-07-27 | Outpatient (CLI) | payer MEDICARE ==
[~2019-07-27] MED LIST changes: -BUPIVACAINE 0.25%/EPI 30ML SDV INJ ONE; -DEXAMETHASONE SOD PHOS INJ 4 MG/ML VIAL ONE; -FENTANYL CITRATE/PF 100MCG/2 ML INJ ONE; -HYDRALAZINE HCL 20 MG/ML VIAL ONE; -HYDROMORPHONE 2MG/ML 2 MG/ML ML ONE; -KETOROLAC TROMETHAMINE 30 MG/ML VIAL ONE; -LIDOCAINE HCL 2% LOCAL INJ 5 ML SDV VIAL INJ ONE; -MIDAZOLAM HCL 2 MG/2 ML VIAL ONE; -ONDANSETRON HCL INJ 2MG/ML 2ML 2 MG/ML VIAL ONE; -PROPOFOL IV EMULSION 10 MG/ML 20 ML VIAL ONE; -SEVOFLURANE INHAL SOLN 250 ML PEN BTL ONE
[2019-07-27 11:01] LABS: ALANINE AMINOTRANSFERASE 36 IU/L (0-55); ALBUMIN 3.5 g/dL (3.5-5.0); ALKALINE PHOSPHATASE 45 IU/L (40-150); BLOOD UREA NITROGEN 10 mg/dL (7-26); BUN/CREATININE RATIO 14 (6-25); CALCIUM 9.3 mg/dL (8.4-10.2); CARBON DIOXIDE 32 mmol/L (22-29); CHLORIDE 103 mmol/L (98-107); CREATININE, SERUM 0.73 mg/dL (0.57-1.11); EST GLOMERULAR FILTRATION RATE > 60 ML/MIN (60-); GLUCOSE 149 mg/dL (74-118); SODIUM 140 mmol/L (136-145)
--- NOTE | 2019-07-27 11:03 | Diagnostic Imaging Report ---
EXAMINATION: CHEST 2 VIEWS INDICATION: ^[id number] ^[id number] ^BREAST C COMPARISON: None FINDINGS: PA and lateral views TUBES and LINES: None. LUNGS: Lungs are well inflated. Lungs are clear. There is no evidence of pneumonia or pulmonary edema. PLEURA: No pleural effusion or pneumothorax. HEART AND MEDIASTINUM: The cardiomediastinal silhouette is unremarkable. BONES AND SOFT TISSUES: No acute osseous lesion. Soft tissues are unremarkable. UPPER ABDOMEN: No free air under the diaphragm. IMPRESSION: No acute thoracic radiographic abnormality. Signed by: Jp Xiao MD on 07/27/2019 10:59 AM
--- NOTE | 2019-07-28 08:22 | Diagnostic Imaging Report ---
#[id number] - [id number] #UNILATERAL LEFT DIGITAL DIAGNOSTIC MAMMOGRAM WITH CAD: 07/27/2019 Comparison is made to exams dated: 11/15/2017 mammogram and 03/24/2017 mammogram - [facility]. There are scattered fibroglandular elements in the left breast. Current study was also evaluated with a Computer Aided Detection (CAD) system. There is a benign lymph node in the left breast. No significant masses, calcifications, or other findings are seen in the breast. There has been no significant interval change. IMPRESSION: BENIGN There is no mammographic evidence of malignancy. A 1 year screening mammogram is recommended. The patient will be notified by letter of the results. PALOMO sanchez/kristin:07/27/2019 16:28:46 [employer] Captain: Silvia NAJERA(R)(M), [facility] letter sent: Compared to Prior B9 Mammogram BI-RADS: 2 Benign
== END ==
LOC: MAMMO 10:13
PROVIDERS: ATTEND Surgery
DX: C50.919 Malignant neoplasm of unspecified site of unspecified female breast (principal)
CPT/HCPCS: 36415; 71046; 80053; 82378

== ENCOUNTER → 2020-06-07 | Outpatient (CLI) | payer MEDICARE ==
[2020-06-07 15:52] LABS: BASOPHILS % 0.7 % (0.0-1.0); EOSINOPHILS # (AUTO) 0.2 (0.0-0.4); HEMATOCRIT 39.5 % (34.2-44.1); HEMOGLOBIN 12.4 g/dL (12.0-16.0); LYMPHOCYTES # (AUTO) 1.8 (1.0-3.2); LYMPHOCYTES % 32.2 % (18.0-39.1); MEAN CORPUSCULAR HEMOGLOBIN 27.7 pg (28-32); MEAN CORPUSCULAR HGB CONC 31.4 g/dL (31-35); MEAN CORPUSCULAR VOLUME 88.2 fL (81-99); MONOCYTES # (AUTO) 0.4 (0.2-0.8); MONOCYTES % 7.4 % (4.4-11.3); NEUTROPHILS # (AUTO) 3.1 (2.1-6.9); NEUTROPHILS % 55.2 % (38.7-80.0); PLATELET COUNT 136 x10e3/uL (140-360); RED BLOOD COUNT 4.48 x10e6/uL (3.6-5.1); RED CELL DISTRIBUTION WIDTH 13.7 % (11.7-14.4)
[2020-06-07 16:27] LABS: ALANINE AMINOTRANSFERASE 24 IU/L (0-55); ALBUMIN/GLOBULIN RATIO 1.1 (0.8-2.0); ALKALINE PHOSPHATASE 54 IU/L (40-150); ANION GAP 15.2 mmol/L (8-16); BLOOD UREA NITROGEN 18 mg/dL (7-26); BUN/CREATININE RATIO 23 (6-25); CALCIUM 9.3 mg/dL (8.4-10.2); CARBON DIOXIDE 28 mmol/L (22-29); CHLORIDE 102 mmol/L (98-107); EST GLOMERULAR FILTRATION RATE > 60 ML/MIN (60-); GLUCOSE 171 mg/dL (74-118); POTASSIUM 4.2 mmol/L (3.5-5.1); SODIUM 141 mmol/L (136-145)
== END ==
LOC: MAMMO 14:41
PROVIDERS: ATTEND Surgery
DX: Z85.3 Personal history of malignant neoplasm of breast (principal)
CPT/HCPCS: 36415; 71046; 80053; 82378; 85025

== ENCOUNTER 2021-02-24 19:30 | Emergency (ER) | payer MEDICARE ==
[~2021-02-24] VITALS: Ht 160 cm; Wt 83.5 kg
[2021-02-24] MEDS ORDERED: KETOROLAC TROMETHAMINE 30 MG/ML VIAL IV STA (19:49)
[2021-02-24] MEDS ORDERED: Vancomycin IV 1 GM in SODIUM CHLORIDE 0.9% 250ML 250 ML IV STA (19:51)
[2021-02-24] MEDS ORDERED: PIPERACILLIN/TAZOBACTAM 3.375 GM in SODIUM CHLORIDE 0.9% 50ML 50 ML IV STA (19:51)
[2021-02-24] MEDS ORDERED: SODIUM CHLORIDE 0.9% 1000ML 1,000 ML IV STA ×2 (19:51→22:13)
[2021-02-24] MEDS ORDERED: CEFEPIME 1 GM in SODIUM CHLORIDE 0.9% 50ML 50 ML IV ONE (20:15)
[2021-02-24 20:21] LABS: BASOPHILS % 0.2 % (0.0-1.0); EOSINOPHILS % 0.1 % (0.0-6.0); HEMATOCRIT 38.5 % (34.2-44.1); HEMOGLOBIN 12.1 g/dL (12.0-16.0); LYMPHOCYTES # (AUTO) 1.7 (1.0-3.2); LYMPHOCYTES % 13.1 % (18.0-39.1); MEAN CORPUSCULAR HGB CONC 31.4 g/dL (31-35); MEAN CORPUSCULAR VOLUME 85.9 fL (81-99); MONOCYTES # (AUTO) 0.8 (0.2-0.8); MONOCYTES % 5.9 % (4.4-11.3); NEUTROPHILS # (AUTO) 10.2 (2.1-6.9); NEUTROPHILS % 79.8 % (38.7-80.0); PLATELET COUNT 159 x10e3/uL (140-360); RED BLOOD COUNT 4.48 x10e6/uL (3.6-5.1); RED CELL DISTRIBUTION WIDTH 15.4 % (11.7-14.4)
[2021-02-24 20:26] LABS: CLARITY,URINE TURBID (CLEAR); COLOR,URINE YELLOW (YELLOW); KETONES,URINE 1+ (NEGATIVE); LEUKOCYTE ESTERASE ,URINE LARGE (NEGATIVE); NITRITE,URINE POSITIVE (NEGATIVE); PROTEIN,URINE DIPSTICK 2+ (NEGATIVE); URINE UROBILINOGEN 0.2 mg/dL (0.2 - 1)
[2021-02-24 20:31] LABS: BACTERIA,URINE MANY /HPF; EPITHELIAL CELLS,URINE RARE /LPF; WBC,URINE (MAN) >50 /HPF (0-5)
[2021-02-24 20:37] LABS: ALBUMIN 3.3 g/dL (3.5-5.0); ALBUMIN/GLOBULIN RATIO 0.7 (0.8-2.0); ANION GAP 18.2 mmol/L (8-16); CALCIUM 9.3 mg/dL (8.4-10.2); CREATININE, SERUM 0.89 mg/dL (0.57-1.11); POTASSIUM 4.2 mmol/L (3.5-5.1)
[2021-02-24] MEDS ORDERED: ONDANSETRON HCL INJ 2MG/ML 2ML 2 MG/ML VIAL IV STA (22:18)
[2021-02-24] MEDS ORDERED: BACTRIM DS TAB1 EACH PO (22:28)
[2021-02-24] MEDS ORDERED: ONDANSETRON ODT4 MG PO (22:28)
[2021-02-24] MEDS ORDERED: COLACE100 MG PO (22:28)
[2021-02-25 02:57] VITALS: BP 110/55
== END 2021-02-25 00:30 | disposition home or self-care (01) ==
LOC: ER 19:35
DX: K80.20 Calculus of gallbladder without cholecystitis without obstruction (principal); N39.0 Urinary tract infection, site not specified; R41.82 Altered mental status, unspecified; K59.00 Constipation, unspecified; E11.9 Type 2 diabetes mellitus without complications; I25.10 Atherosclerotic heart disease of native coronary artery without angina pectoris; I10 Essential (primary) hypertension; I25.2 Old myocardial infarction; U07.1 COVID-19; E03.9 Hypothyroidism, unspecified; E78.5 Hyperlipidemia, unspecified; Z88.0 Allergy status to penicillin; Z88.8 Allergy status to other drugs, medicaments and biological substances; Z79.82 Long term (current) use of aspirin; Z79.4 Long term (current) use of insulin; Z79.899 Other long term (current) drug therapy; Z95.5 Presence of coronary angioplasty implant and graft
CPT/HCPCS: 36415; 70450; 71250; 74176; 80053; 81001; 83605; 85025; 87040; 87086; 87186; 93005; 99285; J0692; J1885; J2405; J3370; J7030; J7050; U0002

== ENCOUNTER 2021-03-10 10:15 | Inpatient (IN) | payer MEDICARE ==
[2021-03-10] VITALS (7 sets, daily range): BP systolic 120–140; BP diastolic 50–72
[~2021-03-10] VITALS: Ht 160 cm; Wt 83.5 kg
[~2021-03-10 10:15] MED LIST changes: +BACTRIM DS TAB1 EACH PO; +COLACE100 MG PO; +ONDANSETRON ODT4 MG PO
[2021-03-10] MEDS ORDERED: SODIUM CHLORIDE 0.9% 1000ML 1,000 ML IV STA (10:32)
[2021-03-10] MEDS ORDERED: MEROPENEM 1 GM in SODIUM CHLORIDE 0.9% 100 ML IV ONE (10:45)
[2021-03-10 11:02] LABS: BASOPHILS % 0.3 % (0.0-1.0); EOSINOPHILS # (AUTO) 0.3 (0.0-0.4); EOSINOPHILS % 4.2 % (0.0-6.0); HEMATOCRIT 31.7 % (34.2-44.1); LYMPHOCYTES # (AUTO) 0.7 (1.0-3.2); LYMPHOCYTES % 11.3 % (18.0-39.1); MEAN CORPUSCULAR HEMOGLOBIN 26.6 pg (28-32); MEAN CORPUSCULAR HGB CONC 31.5 g/dL (31-35); MEAN CORPUSCULAR VOLUME 84.3 fL (81-99); MONOCYTES # (AUTO) 0.4 (0.2-0.8); MONOCYTES % 5.9 % (4.4-11.3); NEUTROPHILS % 77.7 % (38.7-80.0); PLATELET COUNT 202 x10e3/uL (140-360); RED BLOOD COUNT 3.76 x10e6/uL (3.6-5.1); RED CELL DISTRIBUTION WIDTH 14.4 % (11.7-14.4)
[2021-03-10 11:32] LABS: ALBUMIN 2.4 g/dL (3.5-5.0); ALBUMIN/GLOBULIN RATIO 0.5 (0.8-2.0); CALCIUM 9.4 mg/dL (8.4-10.2); CREATININE, SERUM 0.78 mg/dL (0.57-1.11)
[2021-03-10 11:38] LABS: CREATINE KINASE MB 0.5 ng/mL (0-5.0)
[2021-03-10 11:41] LABS: CLARITY,URINE CLEAR (CLEAR); COLOR,URINE YELLOW (YELLOW); KETONES,URINE NEGATIVE (NEGATIVE); LEUKOCYTE ESTERASE ,URINE LARGE (NEGATIVE); NITRITE,URINE NEGATIVE (NEGATIVE); PROTEIN,URINE DIPSTICK 1+ (NEGATIVE); URINE UROBILINOGEN 0.2 mg/dL (0.2 - 1)
[2021-03-10 11:42] LABS: BACTERIA,URINE FEW /HPF; EPITHELIAL CELLS,URINE FEW /LPF; WBC,URINE (MAN) >50 /HPF (0-5)
[2021-03-10 11:45] LABS: MAGNESIUM 1.5 MG/DL (1.3-2.1)
[2021-03-10] MEDS ORDERED: ONDANSETRON HCL INJ 2MG/ML 2ML 2 MG/ML VIAL IV PRN (12:30)
[2021-03-10] MEDS ORDERED: SODIUM CHLORIDE 0.9% 50ML 50 ML ONE (12:37)
[2021-03-10] MEDS ORDERED: IOPAMIDOL 370 MG/ML 200 ML INFUS..BTL INJ ONE (12:37)
[2021-03-10] MEDS: MEROPENEM 1 GM in SODIUM CHLORIDE 0.9% 100 ML IV SCH (17:13)
[2021-03-10] MEDS: SODIUM CHLORIDE 0.9% 1000ML 1,000 ML IV SCH (17:13)
[2021-03-10] MEDS ORDERED: NITROGLYCERIN 0.4 MG SUBL SL PRN (17:15)
[2021-03-10 19:33] LABS: CREATINE KINASE MB 0.5 ng/mL (0-5.0)
[2021-03-10] MEDS ORDERED: ONDANSETRON HCL 4 MG ORAL DISINTEGRATING TAB PO SCH (21:00)
[2021-03-10] MEDS: GABAPENTIN 300 MG CAP PO SCH (21:00)
[2021-03-11] MEDS: MEROPENEM 1 GM in SODIUM CHLORIDE 0.9% 100 ML IV SCH ×3 (01:26→17:36)
[2021-03-11] MEDS: SODIUM CHLORIDE 0.9% 1000ML 1,000 ML IV SCH (03:44)
[2021-03-11 04:54] VITALS: BP 126/57
[2021-03-11 06:08] LABS: BASOPHILS % 0.4 % (0.0-1.0); EOSINOPHILS # (AUTO) 0.2 (0.0-0.4); HEMATOCRIT 30.5 % (34.2-44.1); HEMOGLOBIN 9.3 g/dL (12.0-16.0); LYMPHOCYTES # (AUTO) 0.8 (1.0-3.2); LYMPHOCYTES % 17.4 % (18.0-39.1); MEAN CORPUSCULAR HEMOGLOBIN 26.3 pg (28-32); MEAN CORPUSCULAR HGB CONC 30.5 g/dL (31-35); MEAN CORPUSCULAR VOLUME 86.2 fL (81-99); MONOCYTES # (AUTO) 0.4 (0.2-0.8); MONOCYTES % 7.7 % (4.4-11.3); NEUTROPHILS # (AUTO) 3.3 (2.1-6.9); NEUTROPHILS % 68.9 % (38.7-80.0); PLATELET COUNT 176 x10e3/uL (140-360); RED BLOOD COUNT 3.54 x10e6/uL (3.6-5.1); RED CELL DISTRIBUTION WIDTH 14.4 % (11.7-14.4)
[2021-03-11 06:41] LABS: ALBUMIN 2.2 g/dL (3.5-5.0); ALBUMIN/GLOBULIN RATIO 0.5 (0.8-2.0); ANION GAP 14.2 mmol/L (8-16); CALCIUM 9.1 mg/dL (8.4-10.2); CREATININE, SERUM 0.67 mg/dL (0.57-1.11); POTASSIUM 4.2 mmol/L (3.5-5.1)
[2021-03-11 07:19] LABS: CREATINE KINASE MB 0.4 ng/mL (0-5.0)
[2021-03-11 08:06] VITALS: BP 121/57
[2021-03-11] MEDS: ASPIRIN 81 MG CHEW TAB PO SCH (08:57)
[2021-03-11] MEDS: METFORMIN HCL 850 MG TAB PO SCH ×2 (08:57→17:23)
[2021-03-11] MEDS: DOCUSATE SODIUM 100 MG CAP PO SCH ×2 (08:57→09:05)
[2021-03-11] MEDS: FUROSEMIDE 20 MG TAB PO SCH (08:58)
[2021-03-11] MEDS: GABAPENTIN 300 MG CAP PO SCH ×3 (08:58→21:00)
[2021-03-11] MEDS: CARVEDILOL 3.125 MG TAB PO SCH ×2 (08:58→17:23)
[2021-03-11] MEDS: LISINOPRIL 2.5 MG TAB PO SCH (08:58)
[2021-03-11] MEDS: POTASSIUM CHLORIDE 10MEQ EA PO SCH (08:58)
[2021-03-11] MEDS: PANTOPRAZOLE SOD 40 MG TABEC PO SCH ×2 (08:59→09:06)
[2021-03-11 11:45] VITALS: BP 115/52
[2021-03-11 12:26] LABS: CREATINE KINASE MB 0.4 ng/mL (0-5.0)
[2021-03-11 15:46] VITALS: BP 113/67
[2021-03-11] MEDS ORDERED: DEXTROSE 50% SYRINGE 50 ML IV PRN (17:15)
[2021-03-11] MEDS: INSULIN REGULAR, HUMAN 100 UNIT/1 ML SQ SCH ×2 (17:23→21:43)
[2021-03-11 19:40] VITALS: BP 108/53
[2021-03-11 20:00] VITALS: BP 108/53
[2021-03-11] MEDS: SIMVASTATIN 20 MG TAB PO SCH (21:00)
[2021-03-12] VITALS (8 sets, daily range): BP systolic 97–113; BP diastolic 45–53
[2021-03-12] MEDS: MEROPENEM 1 GM in SODIUM CHLORIDE 0.9% 100 ML IV SCH ×3 (02:00→16:59)
[2021-03-12 05:43] LABS: BASOPHILS % 0.6 % (0.0-1.0); EOSINOPHILS # (AUTO) 0.3 (0.0-0.4); EOSINOPHILS % 5.1 % (0.0-6.0); HEMATOCRIT 31.8 % (34.2-44.1); HEMOGLOBIN 9.6 g/dL (12.0-16.0); LYMPHOCYTES # (AUTO) 1.3 (1.0-3.2); LYMPHOCYTES % 23.5 % (18.0-39.1); MEAN CORPUSCULAR HEMOGLOBIN 26.3 pg (28-32); MEAN CORPUSCULAR HGB CONC 30.2 g/dL (31-35); MEAN CORPUSCULAR VOLUME 87.1 fL (81-99); MONOCYTES # (AUTO) 0.4 (0.2-0.8); MONOCYTES % 8.3 % (4.4-11.3); NEUTROPHILS # (AUTO) 3.3 (2.1-6.9); NEUTROPHILS % 61.7 % (38.7-80.0); PLATELET COUNT 224 x10e3/uL (140-360); RED BLOOD COUNT 3.65 x10e6/uL (3.6-5.1); RED CELL DISTRIBUTION WIDTH 14.6 % (11.7-14.4)
[2021-03-12 06:15] LABS: ANION GAP 9.1 mmol/L (8-16); CREATININE, SERUM 0.66 mg/dL (0.57-1.11); POTASSIUM 4.1 mmol/L (3.5-5.1)
[2021-03-12] MEDS: INSULIN REGULAR, HUMAN 100 UNIT/1 ML SQ SCH ×4 (07:30→21:45)
[2021-03-12] MEDS: METFORMIN HCL 850 MG TAB PO SCH ×2 (09:16→16:59)
[2021-03-12] MEDS: GABAPENTIN 300 MG CAP PO SCH ×3 (09:17→21:45)
[2021-03-12] MEDS: FUROSEMIDE 20 MG TAB PO SCH (09:17)
[2021-03-12] MEDS: ASPIRIN 81 MG CHEW TAB PO SCH (09:17)
[2021-03-12] MEDS: POTASSIUM CHLORIDE 10MEQ EA PO SCH (09:17)
[2021-03-12] MEDS: DOCUSATE SODIUM 100 MG CAP PO SCH ×2 (09:17→16:59)
[2021-03-12] MEDS: CARVEDILOL 3.125 MG TAB PO SCH ×2 (09:17→16:59)
[2021-03-12] MEDS: LISINOPRIL 2.5 MG TAB PO SCH (09:17)
[2021-03-12] MEDS ORDERED: SODIUM CHLORIDE 0.9% 250ML 250 ML ONE (09:35)
[2021-03-12 17:23] LABS: RETICULOCYTE % 1.8 % (0.8-2.2)
[2021-03-12 17:55] LABS: FERRITIN 50.94 ng/mL (4.63-204.00)
[2021-03-12] MEDS: SIMVASTATIN 20 MG TAB PO SCH (21:45)
[2021-03-13] VITALS (8 sets, daily range): BP systolic 80–127; BP diastolic 41–62
[2021-03-13] MEDS: MEROPENEM 1 GM in SODIUM CHLORIDE 0.9% 100 ML IV SCH ×3 (00:58→16:38)
[2021-03-13] MEDS: INSULIN REGULAR, HUMAN 100 UNIT/1 ML SQ SCH ×4 (08:30→22:49)
[2021-03-13] MEDS ORDERED: GADOBENATE DIMEGLUMINE 1 ML IV ONE (09:14)
[2021-03-13] MEDS ORDERED: SODIUM CHLORIDE 0.9% 50ML 50 ML ONE (09:14)
[2021-03-13] MEDS: ASPIRIN 81 MG CHEW TAB PO SCH (09:26)
[2021-03-13] MEDS: METFORMIN HCL 850 MG TAB PO SCH ×2 (09:26→16:39)
[2021-03-13] MEDS: POTASSIUM CHLORIDE 10MEQ EA PO SCH (09:27)
[2021-03-13] MEDS: FUROSEMIDE 20 MG TAB PO SCH (09:27)
[2021-03-13] MEDS: GABAPENTIN 300 MG CAP PO SCH ×3 (09:27→21:53)
[2021-03-13] MEDS: LISINOPRIL 2.5 MG TAB PO SCH (09:27)
[2021-03-13] MEDS: DOCUSATE SODIUM 100 MG CAP PO SCH ×2 (09:27→16:39)
[2021-03-13] MEDS: PANTOPRAZOLE SOD 40 MG TABEC PO SCH (09:27)
[2021-03-13] MEDS: CARVEDILOL 3.125 MG TAB PO SCH ×2 (09:27→16:38)
[2021-03-13] MEDS: SIMVASTATIN 20 MG TAB PO SCH (21:53)
[2021-03-14] VITALS (8 sets, daily range): BP systolic 101–122; BP diastolic 51–76
[2021-03-14] MEDS: MEROPENEM 1 GM in SODIUM CHLORIDE 0.9% 100 ML IV SCH ×3 (02:37→17:57)
[2021-03-14 06:33] LABS: BASOPHILS % 0.6 % (0.0-1.0); EOSINOPHILS # (AUTO) 0.2 (0.0-0.4); EOSINOPHILS % 4.5 % (0.0-6.0); HEMATOCRIT 30.5 % (34.2-44.1); HEMOGLOBIN 9.1 g/dL (12.0-16.0); LYMPHOCYTES # (AUTO) 1.2 (1.0-3.2); LYMPHOCYTES % 25.2 % (18.0-39.1); MEAN CORPUSCULAR HEMOGLOBIN 26.1 pg (28-32); MEAN CORPUSCULAR HGB CONC 29.8 g/dL (31-35); MEAN CORPUSCULAR VOLUME 87.6 fL (81-99); MONOCYTES # (AUTO) 0.4 (0.2-0.8); MONOCYTES % 7.9 % (4.4-11.3); NEUTROPHILS # (AUTO) 2.9 (2.1-6.9); NEUTROPHILS % 61.2 % (38.7-80.0); PLATELET COUNT 182 x10e3/uL (140-360); RED BLOOD COUNT 3.48 x10e6/uL (3.6-5.1); RED CELL DISTRIBUTION WIDTH 15.1 % (11.7-14.4)
[2021-03-14 07:10] LABS: CALCIUM 9.3 mg/dL (8.4-10.2); CREATININE, SERUM 0.71 mg/dL (0.57-1.11)
[2021-03-14] MEDS: INSULIN REGULAR, HUMAN 100 UNIT/1 ML SQ SCH ×4 (07:30→21:25)
[2021-03-14] MEDS: CARVEDILOL 3.125 MG TAB PO SCH ×2 (09:00→16:57)
[2021-03-14] MEDS: LISINOPRIL 2.5 MG TAB PO SCH (09:00)
[2021-03-14] MEDS: ASPIRIN 81 MG CHEW TAB PO SCH (09:04)
[2021-03-14] MEDS: METFORMIN HCL 850 MG TAB PO SCH ×2 (09:04→16:57)
[2021-03-14] MEDS: DOCUSATE SODIUM 100 MG CAP PO SCH ×2 (09:04→16:57)
[2021-03-14] MEDS: FOLIC ACID 1 MG TAB PO SCH (09:05)
[2021-03-14] MEDS: POTASSIUM CHLORIDE 10MEQ EA PO SCH (09:06)
[2021-03-14] MEDS: FUROSEMIDE 20 MG TAB PO SCH (09:07)
[2021-03-14] MEDS: PANTOPRAZOLE SOD 40 MG TABEC PO SCH (09:08)
[2021-03-14] MEDS: GABAPENTIN 300 MG CAP PO SCH ×3 (09:08→20:39)
[2021-03-14] MEDS: CYANOCOBALAMIN 1,000 MCG TAB PO SCH (09:09)
[2021-03-14] MEDS: SIMVASTATIN 20 MG TAB PO SCH (20:39)
[2021-03-15] VITALS (8 sets, daily range): BP systolic 103–154; BP diastolic 44–75
[2021-03-15] MEDS: MEROPENEM 1 GM in SODIUM CHLORIDE 0.9% 100 ML IV SCH ×3 (03:04→17:03)
[2021-03-15] MEDS: INSULIN REGULAR, HUMAN 100 UNIT/1 ML SQ SCH ×4 (07:30→20:50)
[2021-03-15] MEDS: METFORMIN HCL 850 MG TAB PO SCH ×2 (09:00→16:55)
[2021-03-15] MEDS: DOCUSATE SODIUM 100 MG CAP PO SCH ×2 (09:22→16:55)
[2021-03-15] MEDS: ASPIRIN 81 MG CHEW TAB PO SCH (09:22)
[2021-03-15] MEDS: CARVEDILOL 3.125 MG TAB PO SCH ×2 (09:23→16:55)
[2021-03-15] MEDS: POTASSIUM CHLORIDE 10MEQ EA PO SCH (09:23)
[2021-03-15] MEDS: FOLIC ACID 1 MG TAB PO SCH (09:23)
[2021-03-15] MEDS: FUROSEMIDE 20 MG TAB PO SCH (09:23)
[2021-03-15] MEDS: GABAPENTIN 300 MG CAP PO SCH ×3 (09:23→20:34)
[2021-03-15] MEDS: CYANOCOBALAMIN 1,000 MCG TAB PO SCH (09:24)
[2021-03-15] MEDS: LISINOPRIL 2.5 MG TAB PO SCH (09:24)
[2021-03-15] MEDS: PANTOPRAZOLE SOD 40 MG TABEC PO SCH (09:24)
[2021-03-15 10:28] LABS: BASOPHILS % 0.6 % (0.0-1.0); EOSINOPHILS # (AUTO) 0.2 (0.0-0.4); EOSINOPHILS % 3.7 % (0.0-6.0); HEMATOCRIT 31.2 % (34.2-44.1); HEMOGLOBIN 9.7 g/dL (12.0-16.0); LYMPHOCYTES # (AUTO) 0.9 (1.0-3.2); LYMPHOCYTES % 18.9 % (18.0-39.1); MEAN CORPUSCULAR HEMOGLOBIN 26.8 pg (28-32); MEAN CORPUSCULAR HGB CONC 31.1 g/dL (31-35); MEAN CORPUSCULAR VOLUME 86.2 fL (81-99); MONOCYTES # (AUTO) 0.3 (0.2-0.8); MONOCYTES % 6.8 % (4.4-11.3); NEUTROPHILS # (AUTO) 3.4 (2.1-6.9); NEUTROPHILS % 69.6 % (38.7-80.0); PLATELET COUNT 182 x10e3/uL (140-360); RED BLOOD COUNT 3.62 x10e6/uL (3.6-5.1)
[2021-03-15] MEDS ORDERED: SODIUM CHLORIDE 0.9% 250ML 250 ML ONE (10:38)
[2021-03-15 10:58] LABS: ALBUMIN 2.5 g/dL (3.5-5.0); ALBUMIN/GLOBULIN RATIO 0.6 (0.8-2.0); ANION GAP 7.9 mmol/L (8-16); CALCIUM 9.1 mg/dL (8.4-10.2); CREATININE, SERUM 0.67 mg/dL (0.57-1.11); POTASSIUM 3.9 mmol/L (3.5-5.1)
[2021-03-15] MEDS: FERROUS SULFATE 325 MG TAB PO SCH (16:55)
[2021-03-15] MEDS: SIMVASTATIN 20 MG TAB PO SCH (20:34)
[2021-03-15] MEDS: IBUPROFEN 600 MG TAB PO PRN (20:36)
[2021-03-16] VITALS (7 sets, daily range): BP systolic 93–136; BP diastolic 47–62
[2021-03-16] MEDS: MEROPENEM 1 GM in SODIUM CHLORIDE 0.9% 100 ML IV SCH ×3 (02:13→17:26)
[2021-03-16] MEDS: INSULIN REGULAR, HUMAN 100 UNIT/1 ML SQ SCH ×4 (07:30→21:15)
[2021-03-16] MEDS: FERROUS SULFATE 325 MG TAB PO SCH ×2 (08:46→17:26)
[2021-03-16] MEDS: METFORMIN HCL 850 MG TAB PO SCH ×2 (08:46→17:26)
[2021-03-16] MEDS: DOCUSATE SODIUM 100 MG CAP PO SCH ×2 (08:46→17:25)
[2021-03-16] MEDS: ASPIRIN 81 MG CHEW TAB PO SCH (08:46)
[2021-03-16] MEDS: GABAPENTIN 300 MG CAP PO SCH ×3 (08:47→20:41)
[2021-03-16] MEDS: FOLIC ACID 1 MG TAB PO SCH (08:47)
[2021-03-16] MEDS: CARVEDILOL 3.125 MG TAB PO SCH ×2 (08:47→17:00)
[2021-03-16] MEDS: FUROSEMIDE 20 MG TAB PO SCH (08:47)
[2021-03-16] MEDS: PANTOPRAZOLE SOD 40 MG TABEC PO SCH (08:47)
[2021-03-16] MEDS: POTASSIUM CHLORIDE 10MEQ EA PO SCH (08:47)
[2021-03-16] MEDS: CYANOCOBALAMIN 1,000 MCG TAB PO SCH (08:48)
[2021-03-16] MEDS: LISINOPRIL 2.5 MG TAB PO SCH (08:48)
[2021-03-16] MEDS: SIMVASTATIN 20 MG TAB PO SCH (20:41)
[2021-03-16] MEDS: IBUPROFEN 600 MG TAB PO PRN (20:42)
[2021-03-17 00:06] VITALS: BP 118/52
[2021-03-17] MEDS: MEROPENEM 1 GM in SODIUM CHLORIDE 0.9% 100 ML IV SCH ×2 (01:58→09:09)
[2021-03-17 04:10] VITALS: BP 103/45
[2021-03-17 07:51] VITALS: BP 120/55
[2021-03-17 07:57] VITALS: BP 120/55
[2021-03-17] MEDS: INSULIN REGULAR, HUMAN 100 UNIT/1 ML SQ SCH ×2 (08:30→12:30)
[2021-03-17] MEDS: FERROUS SULFATE 325 MG TAB PO SCH (09:07)
[2021-03-17] MEDS: METFORMIN HCL 850 MG TAB PO SCH (09:07)
[2021-03-17] MEDS: POTASSIUM CHLORIDE 10MEQ EA PO SCH (09:08)
[2021-03-17] MEDS: FUROSEMIDE 20 MG TAB PO SCH (09:08)
[2021-03-17] MEDS: GABAPENTIN 300 MG CAP PO SCH (09:08)
[2021-03-17] MEDS: DOCUSATE SODIUM 100 MG CAP PO SCH (09:08)
[2021-03-17] MEDS: CARVEDILOL 3.125 MG TAB PO SCH (09:08)
[2021-03-17] MEDS: ASPIRIN 81 MG CHEW TAB PO SCH (09:08)
[2021-03-17] MEDS: FOLIC ACID 1 MG TAB PO SCH (09:08)
[2021-03-17] MEDS: LISINOPRIL 2.5 MG TAB PO SCH (09:09)
[2021-03-17] MEDS: PANTOPRAZOLE SOD 40 MG TABEC PO SCH (09:09)
[2021-03-17] MEDS: CYANOCOBALAMIN 1,000 MCG TAB PO SCH (09:09)
[2021-03-17 11:53] VITALS: BP 101/46
[2021-03-17] MEDS ORDERED: ONDANSETRON HCL 4 MG ORAL DISINTEGRATING TAB PO PRN (14:30)
== END 2021-03-17 15:02 | disposition home health service (06) | DRG 689 ==
LOC: ER 10:32 → ERHOLD 12:37 → MED/SURG3 13:24
DX: N39.0 Urinary tract infection, site not specified (principal); G93.41 Metabolic encephalopathy; Z16.12 Extended spectrum beta lactamase (ESBL) resistance; E11.9 Type 2 diabetes mellitus without complications; I10 Essential (primary) hypertension; E03.9 Hypothyroidism, unspecified; N12 Tubulo-interstitial nephritis, not specified as acute or chronic; I25.10 Atherosclerotic heart disease of native coronary artery without angina pectoris; R41.82 Altered mental status, unspecified; K80.20 Calculus of gallbladder without cholecystitis without obstruction; D64.9 Anemia, unspecified; B96.1 Klebsiella pneumoniae [K. pneumoniae] as the cause of diseases classified elsewhere; Z85.51 Personal history of malignant neoplasm of bladder; Z85.3 Personal history of malignant neoplasm of breast; Z88.0 Allergy status to penicillin; Z88.8 Allergy status to other drugs, medicaments and biological substances; D63.8 Anemia in other chronic diseases classified elsewhere; D50.9 Iron deficiency anemia, unspecified; R53.81 Other malaise; K76.9 Liver disease, unspecified; Z20.822 Contact with and (suspected) exposure to COVID-19
CPT/HCPCS: 36415; 71045; 74177; 74183; 80048; 80053; 81001; 82105; 82378; 82550; 82553; 82607; 82728; 82746; 82948; 83540; 83690; 83735; 84466; 84484; 85025; 85045; 85651; 86301; 86304; 87040; 87086; 87186; 93005; 96361; 97139; 99284; J1817; J2185; J7030; J7050; Q9967; U0002

== ENCOUNTER → 2021-06-19 | Outpatient (CLI) | payer MEDICARE ==
[2021-06-19 15:58] LABS: BASOPHILS % 0.5 % (0.0-1.0); EOSINOPHILS # (AUTO) 0.2 (0.0-0.4); EOSINOPHILS % 2.6 % (0.0-6.0); HEMOGLOBIN 11.1 g/dL (12.0-16.0); LYMPHOCYTES # (AUTO) 1.7 (1.0-3.2); LYMPHOCYTES % 29.1 % (18.0-39.1); MEAN CORPUSCULAR HEMOGLOBIN 27.3 pg (28-32); MEAN CORPUSCULAR HGB CONC 31.7 g/dL (31-35); MEAN CORPUSCULAR VOLUME 86.2 fL (81-99); MONOCYTES # (AUTO) 0.4 (0.2-0.8); MONOCYTES % 6.6 % (4.4-11.3); NEUTROPHILS # (AUTO) 3.5 (2.1-6.9); PLATELET COUNT 121 x10e3/uL (140-360); RED BLOOD COUNT 4.06 x10e6/uL (3.6-5.1); RED CELL DISTRIBUTION WIDTH 14.4 % (11.7-14.4)
[2021-06-19 16:21] LABS: ALBUMIN 3.6 g/dL (3.5-5.0); ANION GAP 14.9 mmol/L (8-16); CALCIUM 9.1 mg/dL (8.4-10.2); CREATININE, SERUM 0.93 mg/dL (0.57-1.11); POTASSIUM 4.9 mmol/L (3.5-5.1)
== END ==
LOC: MAMMO 15:11
PROVIDERS: ATTEND Surgery
DX: Z85.3 Personal history of malignant neoplasm of breast (principal)
CPT/HCPCS: 36415; 71046; 80053; 82378; 85025

== ENCOUNTER → 2022-07-30 | Outpatient (CLI) | payer MEDICARE | LOC: MAMMO 13:55 | PROVIDERS: ATTEND Surgery | DX: Z85.3 Personal history of malignant neoplasm of breast (principal) ==

== ENCOUNTER 2023-12-13 17:14 | Inpatient (IN) | payer MEDICARE ==
[~2023-12-13] VITALS: Ht 160 cm; Wt 78.0 kg
[~2023-12-13 17:14] MED LIST changes: +AMIODARONE HCL200 MG PO; +BENZONATATE100 MG PO; +DOXYCYCLINE HY100 MG PO; +ELIQUIS5 MG PO; +FEROSUL325 MG PO; +FUROSEMIDE40 MG PO; +HUMALOG100 UNIT/3 SC; +JARDIANCE10 MG PO; +METOPROLOL SUCC25 MG PO; +MYRBETRIQ50 MG PO; +POTASSIUM CHLO20 ME1 PO; +TAMOXIFEN CITRA10 MG PO
[2023-12-13 17:21] VITALS: TEMP 98.4
[2023-12-13 18:11] LABS: BASOPHILS % 0.2 % (0.0-1.0); EOSINOPHILS # (AUTO) 0.2 (0.0-0.4); EOSINOPHILS % 2.3 % (0.0-6.0); HEMATOCRIT 42.8 % (34.2-44.1); LYMPHOCYTES # (AUTO) 0.9 (1.0-3.2); LYMPHOCYTES % 10.7 % (18.0-39.1); MEAN CORPUSCULAR HEMOGLOBIN 27.7 pg (28-32); MEAN CORPUSCULAR HGB CONC 30.4 g/dL (31-35); MEAN CORPUSCULAR VOLUME 91.1 fL (81-99); MONOCYTES # (AUTO) 0.6 (0.2-0.8); NEUTROPHILS # (AUTO) 6.5 (2.1-6.9); PLATELET COUNT 159 x10e3/uL (140-360); RED CELL DISTRIBUTION WIDTH 14.2 % (11.7-14.4); WHITE BLOOD COUNT 8.25 x10e3/uL (4.8-10.8)
[2023-12-13 18:30] LABS: ALBUMIN 2.6 g/dL (3.5-5.0); ALBUMIN/GLOBULIN RATIO 0.5 (0.8-2.0); ANION GAP 18.9 mmol/L (8-16); BILIRUBIN,TOTAL 0.4 mg/dL (0.2-1.2); CALCIUM 9.6 mg/dL (8.4-10.2); CREATININE, SERUM 1.24 mg/dL (0.57-1.11); POTASSIUM 3.9 mmol/L (3.5-5.1); TOTAL PROTEIN 7.4 g/dL (6.5-8.1)
[2023-12-13 18:36] LABS: TROPONIN I 0.018 ng/mL (0-0.300)
[2023-12-13] MEDS ORDERED: IOPAMIDOL 370 MG/ML 100 ML INFUS..BTL INJ ONE (18:42)
[2023-12-13] MEDS ORDERED: ONDANSETRON HCL INJ 2MG/ML 2ML 2 MG/ML VIAL IV PRN (19:15)
[2023-12-13] MEDS: SODIUM CHLORIDE 0.9% 1000ML 1,000 ML IV STA (19:15)
[2023-12-13 20:01] VITALS: PULSE 80; RESP 16
[2023-12-13 21:00] VITALS: BP 116/75; PULSE 77; RESP 20; TEMP 98.5; O2SAT 97
[2023-12-13 21:16] VITALS: PULSE 76; RESP 16; O2SAT 93
[2023-12-13] MEDS: SODIUM CHLORIDE 0.9% 1000ML 1,000 ML IV SCH (21:58)
[2023-12-13 23:00] VITALS: BP 112/48; PULSE 74; RESP 18; TEMP 98.3; O2SAT 93
[2023-12-13] MEDS: METRONIDAZOLE 500MG/NS 100ML 100 ML IV SCH (23:17)
[2023-12-14] VITALS (10 sets, daily range): BP systolic 115–132; BP diastolic 40–63; PULSE 69–89; RESP 16–20; TEMP 97.6–99; O2SAT 93–98
[2023-12-14] MEDS ORDERED: POLYETHYLENE GLYCOL 3350 17 GM PACK PO PRN (01:30)
[2023-12-14] MEDS ORDERED: DEXTROSE 50% SYRINGE 50 ML IV PRN (01:30)
[2023-12-14] MEDS ORDERED: GUAIFENESIN/DEXTROMETHORPHAN LIQD 5 ML UDC PO PRN (01:30)
[2023-12-14] MEDS ORDERED: MAGNESIUM/ALUMINUM/SIMETHICONE 30 ML UDC PO PRN (01:30)
[2023-12-14] MEDS ORDERED: MELATONIN 3 MG TAB PO PRN (01:30)
[2023-12-14] MEDS ORDERED: IPRATROPIUM BROMIDE 0.02% 2.5 ML NEB NEB PRN (01:30)
[2023-12-14] MEDS ORDERED: ACETAMINOPHEN 325 MG TAB PO PRN (01:30)
[2023-12-14] MEDS ORDERED: HYDRALAZINE HCL 20 MG/ML VIAL IV PRN ×2 (01:30→09:45)
[2023-12-14] MEDS: INSULIN REGULAR, HUMAN 100 UNIT/1 ML SQ SCH (01:49)
[2023-12-14 05:09] LABS: BASOPHILS % 0.4 % (0.0-1.0); EOSINOPHILS # (AUTO) 0.2 (0.0-0.4); EOSINOPHILS % 3.2 % (0.0-6.0); HEMATOCRIT 36.1 % (34.2-44.1); HEMOGLOBIN 11.1 g/dL (12.0-16.0); LYMPHOCYTES # (AUTO) 0.7 (1.0-3.2); LYMPHOCYTES % 12.5 % (18.0-39.1); MEAN CORPUSCULAR HEMOGLOBIN 27.8 pg (28-32); MEAN CORPUSCULAR HGB CONC 30.7 g/dL (31-35); MEAN CORPUSCULAR VOLUME 90.5 fL (81-99); MONOCYTES # (AUTO) 0.4 (0.2-0.8); MONOCYTES % 7.8 % (4.4-11.3); NEUTROPHILS % 75.1 % (38.7-80.0); PLATELET COUNT 141 x10e3/uL (140-360); RED BLOOD COUNT 3.99 x10e6/uL (3.6-5.1); RED CELL DISTRIBUTION WIDTH 14.3 % (11.7-14.4); WHITE BLOOD COUNT 5.26 x10e3/uL (4.8-10.8)
[2023-12-14 05:40] LABS: ALBUMIN 2.1 g/dL (3.5-5.0); ALBUMIN/GLOBULIN RATIO 0.5 (0.8-2.0); ANION GAP 13.1 mmol/L (8-16); BILIRUBIN,TOTAL 0.3 mg/dL (0.2-1.2); CALCIUM 8.3 mg/dL (8.4-10.2); CREATININE, SERUM 1.06 mg/dL (0.57-1.11)
[2023-12-14 05:42] LABS: POTASSIUM 3.1 mmol/L (3.5-5.1)
[2023-12-14 06:07] LABS: TROPONIN I 0.026 ng/mL (0-0.300)
[2023-12-14] MEDS: DOCUSATE SODIUM 100 MG CAP PO SCH (08:37)
[2023-12-14] MEDS: MULTIVITAMINS/MINERALS TAB PO SCH (08:37)
[2023-12-14] MEDS ORDERED: BISACODYL 10 MG SUPP PR PRN (09:45)
[2023-12-14] MEDS: POTASSIUM CHLORIDE 10MEQ EA PO ONE (11:51)
[2023-12-14 15:14] LABS: TROPONIN I 0.024 ng/mL (0-0.300)
[2023-12-14] MEDS: ENOXAPARIN SOD INJ 40 MG/0.4 ML SYR SC SCH (16:23)
[2023-12-15] VITALS (10 sets, daily range): BP systolic 117–157; BP diastolic 49–94; PULSE 69–80; RESP 16–26; TEMP 97.6–98.9; O2SAT 95–98
[2023-12-15 03:38] LABS: % IRON SATURATION 14 % (15-50); IRON 30 ug/dL (50-170); TOTAL IRON BINDING CAPACITY 218 ug/dL (261-478); TRANSFERRIN 156 mg/dL (180-382)
[2023-12-15 04:12] LABS: FOLATE 16.9 ng/mL (7.0-15.4)
[2023-12-15 05:25] LABS: BASOPHILS % 0.2 % (0.0-1.0); EOSINOPHILS # (AUTO) 0.2 (0.0-0.4); EOSINOPHILS % 4.1 % (0.0-6.0); HEMATOCRIT 38.2 % (34.2-44.1); HEMOGLOBIN 11.7 g/dL (12.0-16.0); LYMPHOCYTES # (AUTO) 0.8 (1.0-3.2); LYMPHOCYTES % 17.9 % (18.0-39.1); MEAN CORPUSCULAR HGB CONC 30.6 g/dL (31-35); MEAN CORPUSCULAR VOLUME 91.4 fL (81-99); MONOCYTES # (AUTO) 0.4 (0.2-0.8); MONOCYTES % 9.4 % (4.4-11.3); NEUTROPHILS # (AUTO) 2.9 (2.1-6.9); NEUTROPHILS % 67.5 % (38.7-80.0); PLATELET COUNT 152 x10e3/uL (140-360); RED BLOOD COUNT 4.18 x10e6/uL (3.6-5.1); RED CELL DISTRIBUTION WIDTH 14.4 % (11.7-14.4); WHITE BLOOD COUNT 4.36 x10e3/uL (4.8-10.8)
[2023-12-15 06:00] LABS: ALBUMIN 2.1 g/dL (3.5-5.0); ALBUMIN/GLOBULIN RATIO 0.6 (0.8-2.0); ANION GAP 13.3 mmol/L (8-16); BILIRUBIN,TOTAL 0.2 mg/dL (0.2-1.2); CALCIUM 8.6 mg/dL (8.4-10.2); CREATININE, SERUM 0.86 mg/dL (0.57-1.11); MAGNESIUM 1.9 MG/DL (1.3-2.1); TOTAL PROTEIN 5.8 g/dL (6.5-8.1)
[2023-12-15 06:04] LABS: POTASSIUM 3.3 mmol/L (3.5-5.1)
[2023-12-15] MEDS: SENNOSIDES 8.6 MG TAB PO SCH (09:00)
[2023-12-15] MEDS: DOCUSATE SODIUM 100 MG CAP PO SCH (09:00)
[2023-12-15] MEDS: METOPROLOL SUCCINATE 25 MG TAB XL PO SCH (11:00)
[2023-12-15] MEDS: AMIODARONE HCL 200 MG TAB PO SCH (11:00)
[2023-12-15] MEDS ORDERED: BUPIVACAINE 0.5%/EPI 30 ML SDV INJ ONE (12:38)
[2023-12-15] MEDS ORDERED: ETOMIDATE 2 MG/ML 10 ML INJ IV ONE (12:52)
[2023-12-15] MEDS ORDERED: FAMOTIDINE 20 MG/2 ML VIAL IV ONE (12:52)
[2023-12-15] MEDS ORDERED: ACETAMINOPHEN 1000 MG/100 ML IV ONE (12:52)
[2023-12-15] MEDS ORDERED: EPHEDRINE SULFATE INJ 50 MG/ML VIAL ONE (12:52)
[2023-12-15] MEDS ORDERED: SEVOFLURANE INHAL SOLN 250 ML PEN BTL ONE (12:52)
[2023-12-15] MEDS ORDERED: DEXAMETHASONE SOD PHOS INJ 4 MG/ML SDV ONE (12:52)
[2023-12-15] MEDS ORDERED: SUGAMMADEX SODIUM 200 MG/2 ML VIAL IV ONE (12:52)
[2023-12-15] MEDS ORDERED: ONDANSETRON HCL INJ 2MG/ML 2ML 2 MG/ML VIAL ONE (12:52)
[2023-12-15] MEDS ORDERED: LIDOCAINE HCL 2% LOCAL INJ 5 ML SDV VIAL INJ ONE (12:52)
[2023-12-15] MEDS ORDERED: FENTANYL CITRATE/PF 100MCG/2 ML INJ ONE (13:10)
[2023-12-15] MEDS ORDERED: Morphine 10mg syringe 10 MG/ML INJ ONE (13:10)
[2023-12-15] MEDS: ROPIVACAINE 246.25 MG, EPINEPHRINE HCL 1:1000 1ML 0.5 MG, CLONIDINE HCL 0.08 MG, KETORO... INJ ONE (15:10)
[2023-12-15] MEDS ORDERED: BUPIVACAINE 0.25% 30ML SDV ONE (15:29)
[2023-12-15] MEDS ORDERED: EPINEPHRINE HCL 1:1000 1ML 1 MG/ML AMP ONE (15:29)
[2023-12-15] MEDS ORDERED: LIDOCAINE HCL 2% LOCAL 20 ML VIAL ONE (15:30)
[2023-12-15] MEDS: SODIUM CHLORIDE 0.9% 1000ML 1,000 ML IV SCH (17:32)
[2023-12-15] MEDS ORDERED: ACETAMINOPHEN 1000 MG/100 ML IV PRN (18:00)
[2023-12-15] MEDS: Morphine 2mg Syringe 2 MG/ML SYR IV PRN (20:48)
[2023-12-15] MEDS ORDERED: CRESTOR 10MG PO SCH (21:00)
[2023-12-16] VITALS (17 sets, daily range): BP systolic 105–140; BP diastolic 35–91; PULSE 76–92; RESP 17–31; TEMP 97.7–99.1; O2SAT 88–100
[2023-12-16 06:57] LABS: BASOPHILS % 0.4 % (0.0-1.0); EOSINOPHILS % 0.1 % (0.0-6.0); HEMATOCRIT 40.2 % (34.2-44.1); HEMOGLOBIN 11.6 g/dL (12.0-16.0); LYMPHOCYTES # (AUTO) 0.5 (1.0-3.2); LYMPHOCYTES % 5.6 % (18.0-39.1); MEAN CORPUSCULAR HEMOGLOBIN 27.4 pg (28-32); MEAN CORPUSCULAR HGB CONC 28.9 g/dL (31-35); MEAN CORPUSCULAR VOLUME 94.8 fL (81-99); MONOCYTES # (AUTO) 0.6 (0.2-0.8); MONOCYTES % 5.8 % (4.4-11.3); NEUTROPHILS # (AUTO) 8.3 (2.1-6.9); NEUTROPHILS % 87.5 % (38.7-80.0); PLATELET COUNT 164 x10e3/uL (140-360); RED BLOOD COUNT 4.24 x10e6/uL (3.6-5.1); RED CELL DISTRIBUTION WIDTH 14.3 % (11.7-14.4); WHITE BLOOD COUNT 9.51 x10e3/uL (4.8-10.8)
[2023-12-16 07:26] LABS: ALBUMIN 2.3 g/dL (3.5-5.0); ALBUMIN/GLOBULIN RATIO 0.6 (0.8-2.0); BILIRUBIN,TOTAL 0.3 mg/dL (0.2-1.2); CALCIUM 8.5 mg/dL (8.4-10.2); CREATININE, SERUM 0.99 mg/dL (0.57-1.11); MAGNESIUM 1.9 MG/DL (1.3-2.1); TOTAL PROTEIN 6.2 g/dL (6.5-8.1)
[2023-12-16] MEDS: LEVOFLOXACIN 500 MG TAB PO SCH (09:47)
[2023-12-17] VITALS (10 sets, daily range): BP systolic 108–123; BP diastolic 47–52; PULSE 64–74; RESP 17–20; TEMP 97.4–98.8; O2SAT 95–100
[2023-12-17 05:57] LABS: BASOPHILS % 0.2 % (0.0-1.0); EOSINOPHILS # (AUTO) 0.1 (0.0-0.4); EOSINOPHILS % 0.8 % (0.0-6.0); HEMATOCRIT 36.5 % (34.2-44.1); HEMOGLOBIN 10.8 g/dL (12.0-16.0); LYMPHOCYTES # (AUTO) 0.7 (1.0-3.2); LYMPHOCYTES % 7.2 % (18.0-39.1); MEAN CORPUSCULAR HEMOGLOBIN 27.1 pg (28-32); MEAN CORPUSCULAR HGB CONC 29.6 g/dL (31-35); MEAN CORPUSCULAR VOLUME 91.7 fL (81-99); MONOCYTES # (AUTO) 0.5 (0.2-0.8); MONOCYTES % 5.5 % (4.4-11.3); NEUTROPHILS # (AUTO) 7.9 (2.1-6.9); NEUTROPHILS % 85.5 % (38.7-80.0); PLATELET COUNT 172 x10e3/uL (140-360); RED BLOOD COUNT 3.98 x10e6/uL (3.6-5.1); RED CELL DISTRIBUTION WIDTH 14.5 % (11.7-14.4); WHITE BLOOD COUNT 9.23 x10e3/uL (4.8-10.8)
[2023-12-17 06:26] LABS: ALBUMIN/GLOBULIN RATIO 0.6 (0.8-2.0); BILIRUBIN,TOTAL 0.4 mg/dL (0.2-1.2); CALCIUM 7.9 mg/dL (8.4-10.2); CREATININE, SERUM 0.77 mg/dL (0.57-1.11); MAGNESIUM 1.7 MG/DL (1.3-2.1); TOTAL PROTEIN 5.4 g/dL (6.5-8.1)
[2023-12-17] MEDS: ONDANSETRON HCL INJ 2MG/ML 2ML 2 MG/ML VIAL IV PRN (08:18)
[2023-12-17] MEDS: MAGNESIUM SULFATE 2GM/50ML 50 ML IV ONE (11:27)
[2023-12-17] MEDS: POTASSIUM CHLORIDE 10MEQ EA PO ONE ×2 (11:27→15:50)
[2023-12-17] MEDS ORDERED: ONDANSETRON HCL 4 MG ORAL DISINTEGRATING TAB PO PRN (16:00)
[2023-12-17] MEDS: INSULIN GLARGINE 100 UNITS/ML VIAL SQ SCH (21:16)
[2023-12-18] VITALS (8 sets, daily range): BP systolic 103–135; BP diastolic 47–63; PULSE 76–86; RESP 16–20; TEMP 97.4–98.5; O2SAT 89–99
[2023-12-18 06:52] LABS: BASOPHILS % 0.1 % (0.0-1.0); EOSINOPHILS # (AUTO) 0.2 (0.0-0.4); EOSINOPHILS % 1.6 % (0.0-6.0); HEMOGLOBIN 10.6 g/dL (12.0-16.0); LYMPHOCYTES # (AUTO) 0.9 (1.0-3.2); LYMPHOCYTES % 9.4 % (18.0-39.1); MEAN CORPUSCULAR HEMOGLOBIN 27.5 pg (28-32); MEAN CORPUSCULAR HGB CONC 30.3 g/dL (31-35); MEAN CORPUSCULAR VOLUME 90.7 fL (81-99); MONOCYTES # (AUTO) 0.5 (0.2-0.8); MONOCYTES % 5.4 % (4.4-11.3); NEUTROPHILS # (AUTO) 7.7 (2.1-6.9); PLATELET COUNT 174 x10e3/uL (140-360); RED BLOOD COUNT 3.86 x10e6/uL (3.6-5.1); RED CELL DISTRIBUTION WIDTH 14.8 % (11.7-14.4); WHITE BLOOD COUNT 9.29 x10e3/uL (4.8-10.8)
[2023-12-18 07:06] LABS: ALBUMIN 1.9 g/dL (3.5-5.0); ALBUMIN/GLOBULIN RATIO 0.5 (0.8-2.0); ANION GAP 12.5 mmol/L (8-16); BILIRUBIN,TOTAL 0.4 mg/dL (0.2-1.2); CALCIUM 8.1 mg/dL (8.4-10.2); CREATININE, SERUM 0.78 mg/dL (0.57-1.11); MAGNESIUM 2.1 MG/DL (1.3-2.1); POTASSIUM 3.5 mmol/L (3.5-5.1); TOTAL PROTEIN 5.5 g/dL (6.5-8.1)
[2023-12-18] MEDS: PANTOPRAZOLE SOD 40 MG TABEC PO SCH (09:01)
[2023-12-19] VITALS (11 sets, daily range): BP systolic 117–132; BP diastolic 45–53; PULSE 73–78; RESP 16–21; TEMP 97.5–99; O2SAT 92–98
[2023-12-19] MEDS: INSULIN LISPRO 100 UNIT/1 ML 3ML VIAL SQ SCH (14:32)
[2023-12-19] MEDS: INSULIN GLARGINE 100 UNITS/ML VIAL SQ SCH (21:33)
[2023-12-20] VITALS (10 sets, daily range): BP systolic 103–124; BP diastolic 36–57; PULSE 66–79; RESP 16–21; TEMP 97.6–99.1; O2SAT 96–100
[2023-12-20 05:43] LABS: BASOPHILS % 0.3 % (0.0-1.0); EOSINOPHILS # (AUTO) 0.2 (0.0-0.4); EOSINOPHILS % 2.1 % (0.0-6.0); HEMATOCRIT 34.6 % (34.2-44.1); HEMOGLOBIN 10.4 g/dL (12.0-16.0); LYMPHOCYTES # (AUTO) 0.9 (1.0-3.2); LYMPHOCYTES % 11.9 % (18.0-39.1); MEAN CORPUSCULAR HEMOGLOBIN 27.6 pg (28-32); MEAN CORPUSCULAR HGB CONC 30.1 g/dL (31-35); MEAN CORPUSCULAR VOLUME 91.8 fL (81-99); MONOCYTES # (AUTO) 0.5 (0.2-0.8); MONOCYTES % 6.7 % (4.4-11.3); NEUTROPHILS # (AUTO) 6.2 (2.1-6.9); NEUTROPHILS % 78.4 % (38.7-80.0); PLATELET COUNT 224 x10e3/uL (140-360); RED BLOOD COUNT 3.77 x10e6/uL (3.6-5.1); RED CELL DISTRIBUTION WIDTH 14.8 % (11.7-14.4); WHITE BLOOD COUNT 7.93 x10e3/uL (4.8-10.8)
[2023-12-20 06:21] LABS: ALBUMIN 1.8 g/dL (3.5-5.0); ALBUMIN/GLOBULIN RATIO 0.5 (0.8-2.0); ANION GAP 11.4 mmol/L (8-16); BILIRUBIN,TOTAL 0.3 mg/dL (0.2-1.2); CALCIUM 7.9 mg/dL (8.4-10.2); CREATININE, SERUM 0.82 mg/dL (0.57-1.11); MAGNESIUM 1.7 MG/DL (1.3-2.1); TOTAL PROTEIN 5.4 g/dL (6.5-8.1)
[2023-12-20] MEDS: ACETAMINOPHEN 325 MG TAB PO PRN (06:21)
[2023-12-20 06:25] LABS: POTASSIUM 3.4 mmol/L (3.5-5.1)
[2023-12-20] MEDS: POTASSIUM CHLORIDE 10MEQ EA PO ONE (09:49)
[2023-12-20] MEDS: MAGNESIUM SULFATE 2GM/50ML 50 ML IV ONE (09:50)
[2023-12-20] MEDS: INSULIN LISPRO 100 UNIT/1 ML 3ML VIAL SQ SCH (09:58)
[2023-12-20] MEDS: MAGNESIUM OXIDE 400 MG TAB PO ONE (12:18)
[2023-12-20] MEDS: INSULIN GLARGINE 100 UNITS/ML VIAL SQ SCH (20:56)
[2023-12-21] VITALS (9 sets, daily range): BP systolic 108–121; BP diastolic 44–52; PULSE 68–76; RESP 17–20; TEMP 97.5–99.5; O2SAT 95–100
[2023-12-21 07:04] LABS: BASOPHILS % 0.4 % (0.0-1.0); EOSINOPHILS # (AUTO) 0.2 (0.0-0.4); EOSINOPHILS % 2.3 % (0.0-6.0); HEMATOCRIT 34.2 % (34.2-44.1); LYMPHOCYTES # (AUTO) 1.2 (1.0-3.2); LYMPHOCYTES % 14.2 % (18.0-39.1); MEAN CORPUSCULAR HEMOGLOBIN 27.3 pg (28-32); MEAN CORPUSCULAR HGB CONC 29.2 g/dL (31-35); MEAN CORPUSCULAR VOLUME 93.4 fL (81-99); MONOCYTES # (AUTO) 0.5 (0.2-0.8); MONOCYTES % 6.2 % (4.4-11.3); NEUTROPHILS # (AUTO) 6.3 (2.1-6.9); NEUTROPHILS % 76.1 % (38.7-80.0); PLATELET COUNT 244 x10e3/uL (140-360); RED BLOOD COUNT 3.66 x10e6/uL (3.6-5.1); RED CELL DISTRIBUTION WIDTH 14.9 % (11.7-14.4); WHITE BLOOD COUNT 8.33 x10e3/uL (4.8-10.8)
[2023-12-21 07:36] LABS: ALBUMIN 1.8 g/dL (3.5-5.0); ALBUMIN/GLOBULIN RATIO 0.5 (0.8-2.0); ANION GAP 10.7 mmol/L (8-16); BILIRUBIN,TOTAL 0.3 mg/dL (0.2-1.2); CALCIUM 8.1 mg/dL (8.4-10.2); CREATININE, SERUM 0.69 mg/dL (0.57-1.11); MAGNESIUM 1.8 MG/DL (1.3-2.1); POTASSIUM 3.7 mmol/L (3.5-5.1); TOTAL PROTEIN 5.4 g/dL (6.5-8.1)
[2023-12-21] MEDS: ENOXAPARIN SOD INJ 40 MG/0.4 ML SYR SC SCH (16:53)
[2023-12-22] VITALS (12 sets, daily range): BP systolic 94–128; BP diastolic 40–67; PULSE 65–79; RESP 17–20; TEMP 97.7–99; O2SAT 95–100
[2023-12-22] MEDS: INSULIN GLARGINE 100 UNITS/ML VIAL SQ SCH (20:21)
[2023-12-23] VITALS (11 sets, daily range): BP systolic 110–143; BP diastolic 42–83; PULSE 62–74; RESP 18–21; TEMP 98–99; O2SAT 94–99
[2023-12-23 05:50] LABS: BASOPHILS % 0.3 % (0.0-1.0); EOSINOPHILS # (AUTO) 0.2 (0.0-0.4); EOSINOPHILS % 2.6 % (0.0-6.0); HEMATOCRIT 32.9 % (34.2-44.1); LYMPHOCYTES # (AUTO) 1.2 (1.0-3.2); LYMPHOCYTES % 15.6 % (18.0-39.1); MEAN CORPUSCULAR HEMOGLOBIN 27.4 pg (28-32); MEAN CORPUSCULAR HGB CONC 30.4 g/dL (31-35); MEAN CORPUSCULAR VOLUME 90.1 fL (81-99); MONOCYTES # (AUTO) 0.6 (0.2-0.8); MONOCYTES % 7.8 % (4.4-11.3); NEUTROPHILS # (AUTO) 5.4 (2.1-6.9); NEUTROPHILS % 72.9 % (38.7-80.0); PLATELET COUNT 263 x10e3/uL (140-360); RED BLOOD COUNT 3.65 x10e6/uL (3.6-5.1); RED CELL DISTRIBUTION WIDTH 15.2 % (11.7-14.4); WHITE BLOOD COUNT 7.42 x10e3/uL (4.8-10.8)
[2023-12-23 06:12] LABS: ANION GAP 12.8 mmol/L (8-16); CALCIUM 8.3 mg/dL (8.4-10.2); CREATININE, SERUM 0.76 mg/dL (0.57-1.11); POTASSIUM 3.8 mmol/L (3.5-5.1)
[2023-12-23] MEDS ORDERED: LEVOFLOXACIN 500MG/D5W 100ML 100 ML IV SCH (12:00)
[2023-12-23] MEDS: LEVOFLOXACIN 500MG/D5W 100ML 100 ML IV SCH (21:35)
[2023-12-24 04:35] VITALS: BP 132/44; PULSE 73; RESP 18; TEMP 98.4; O2SAT 97
[2023-12-24 08:03] VITALS: PULSE 75; RESP 18; O2SAT 98
[2023-12-24 08:08] VITALS: BP 115/54; PULSE 72; RESP 16; TEMP 98.4; O2SAT 96
[2023-12-24 08:09] VITALS: BP 115/54; PULSE 72; RESP 16; TEMP 98.4; O2SAT 96
[2023-12-24] MEDS: APIXABAN 2.5 MG TABLET PO SCH (11:00)
[2023-12-24 11:37] VITALS: BP 128/43; PULSE 70; RESP 16; TEMP 98; O2SAT 96
[2023-12-24 12:24] VITALS: PULSE 69; RESP 18; O2SAT 96
== END 2023-12-24 15:57 | DRG 405 ==
LOC: ER 17:53 → ERHOLD 19:14 → MED/SURG 20:47 → ICU 12-15 17:04 → MED/SURG3 12-16 22:20
PROVIDERS: ADMIT Internal Medicine; ATTEND Internal Medicine
PROC: 0FT40ZZ Resection of Gallbladder, Open Approach (ICD-10-PCS; 2023-12-15)
PROC: 0FJ44ZZ Inspection of Gallbladder, Percutaneous Endoscopic Approach (ICD-10-PCS; 2023-12-15)
PROC: 0F9 Hepatobiliary System and Pancreas, Drainage (ICD-10-PCS; principal; 2023-12-15 12:36)
PROC: 02HV33Z Insertion of Infusion Device into Superior Vena Cava, Percutaneous Approach (ICD-10-PCS; 2023-12-23)
DX: K80.00 Calculus of gallbladder with acute cholecystitis without obstruction (principal); K75.0 Abscess of liver; N17.9 Acute kidney failure, unspecified; I47.20 Ventricular tachycardia, unspecified; Q44.1 Other congenital malformations of gallbladder; J98.11 Atelectasis; I50.22 Chronic systolic (congestive) heart failure; K82.A1 Gangrene of gallbladder in cholecystitis; I11.0 Hypertensive heart disease with heart failure; R62.7 Adult failure to thrive; Z90.6 Acquired absence of other parts of urinary tract; E11.65 Type 2 diabetes mellitus with hyperglycemia; E03.9 Hypothyroidism, unspecified; I25.10 Atherosclerotic heart disease of native coronary artery without angina pectoris; I48.0 Paroxysmal atrial fibrillation; R74.01 Elevation of levels of liver transaminase levels; K21.9 Gastro-esophageal reflux disease without esophagitis; R09.02 Hypoxemia; E78.5 Hyperlipidemia, unspecified; Z11.52 Encounter for screening for COVID-19; R53.81 Other malaise; Z79.01 Long term (current) use of anticoagulants; Z79.4 Long term (current) use of insulin; Z79.84 Long term (current) use of oral hypoglycemic drugs; Z79.82 Long term (current) use of aspirin; I25.2 Old myocardial infarction; Z99.3 Dependence on wheelchair; Z95.5 Presence of coronary angioplasty implant and graft; Z90.11 Acquired absence of right breast and nipple; Z85.51 Personal history of malignant neoplasm of bladder; Z85.3 Personal history of malignant neoplasm of breast; Z90.49 Acquired absence of other specified parts of digestive tract; Z87.440 Personal history of urinary (tract) infections; Z88.0 Allergy status to penicillin; Z88.8 Allergy status to other drugs, medicaments and biological substances; Z87.891 Personal history of nicotine dependence
CPT/HCPCS: 36415; 70450; 71260; 72125; 76705; 80048; 80053; 82550; 82607; 82728; 82746; 82948; 83540; 83690; 83735; 83880; 84466; 84484; 85025; 85045; 87400; 88304; 93005; 93925; 94799; 96372; 99252; 99285; C1766; J0171; J0696; J1100; J1650; J1815; J1885; J1956; J2003; J2270; J2405; J2470; J2795; J3475; J7030; Q9967; U0002

== ENCOUNTER 2024-03-04 20:28 | Inpatient (IN) | payer MEDICARE, OTHER ==
[~2024-03-04] VITALS: Ht 160 cm; Wt 78.0 kg
[2024-03-04 20:40] VITALS: TEMP 97.9
[2024-03-04 21:25] LABS: BASOPHILS % 0.3 % (0.0-1.0); EOSINOPHILS # (AUTO) 0.1 (0.0-0.4); EOSINOPHILS % 1.4 % (0.0-6.0); LYMPHOCYTES # (AUTO) 0.6 (1.0-3.2); LYMPHOCYTES % 10.6 % (18.0-39.1); MEAN CORPUSCULAR HEMOGLOBIN 26.7 pg (28-32); MEAN CORPUSCULAR HGB CONC 27.4 g/dL (31-35); MEAN CORPUSCULAR VOLUME 97.6 fL (81-99); MONOCYTES # (AUTO) 0.7 (0.2-0.8); MONOCYTES % 11.5 % (4.4-11.3); NEUTROPHILS # (AUTO) 4.4 (2.1-6.9); NEUTROPHILS % 75.9 % (38.7-80.0); PLATELET COUNT 133 x10e3/uL (140-360); RED BLOOD COUNT 2.06 x10e6/uL (3.6-5.1); RED CELL DISTRIBUTION WIDTH 16.5 % (11.7-14.4); WHITE BLOOD COUNT 5.74 x10e3/uL (4.8-10.8)
[2024-03-04 21:32] LABS: HEMATOCRIT 20.1 % (34.2-44.1); HEMOGLOBIN 5.5 g/dL (12.0-16.0)
[2024-03-04 21:36] LABS: CORONAVIRUS COVID-19 AG NEGATIVE (NEGATIVE); INFLUENZA A AG NEGATIVE (NEGATIVE); INFLUENZA B AG NEGATIVE (NEGATIVE)
[2024-03-04 21:41] LABS: ALBUMIN 3.1 g/dL (3.5-5.0); ANION GAP 19.3 mmol/L (8-16); BILIRUBIN,TOTAL 0.4 mg/dL (0.2-1.2); CALCIUM 8.3 mg/dL (8.4-10.2); CREATININE, SERUM 1.32 mg/dL (0.57-1.11); POTASSIUM 4.3 mmol/L (3.5-5.1); TOTAL PROTEIN 6.2 g/dL (6.5-8.1)
[2024-03-04 22:10] VITALS: PULSE 81; RESP 16; O2SAT 98
[2024-03-04] MEDS ORDERED: DEXTROSE 50% SYRINGE 50 ML IV PRN (22:15)
[2024-03-04] MEDS ORDERED: SODIUM CHLORIDE FLUSH 10 ML SYR INJ PRN (22:15)
[2024-03-04 22:51] LABS: INR 1.37; PROTHROMBIN TIME 17.6 seconds (11.9-14.5)
[2024-03-04 22:54] LABS: BILIRUBIN,URINE NEGATIVE (NEGATIVE); CLARITY,URINE CLOUDY (CLEAR); COLOR,URINE YELLOW (YELLOW); GLUCOSE, URINE 500 (NEGATIVE); KETONES,URINE NEGATIVE (NEGATIVE); LEUKOCYTE ESTERASE ,URINE 1+ (NEGATIVE); NITRITE,URINE POSITIVE (NEGATIVE); PH,URINE 5.5 (5 - 7); PROTEIN,URINE DIPSTICK NEGATIVE (NEGATIVE); URINE UROBILINOGEN 1 mg/dL (0.2 - 1)
[2024-03-04 22:57] LABS: RBC,URINE 0-5 /HPF (0-5); WBC,URINE (MAN) >50 /HPF (0-5)
[2024-03-04 22:58] LABS: BACTERIA,URINE MANY /HPF; EPITHELIAL CELLS,URINE MANY /LPF; TRANSITIONAL EPI CELLS,URINE FEW
[2024-03-04 22:58] LABS: % IRON SATURATION 7 % (15-50); IRON 28 ug/dL (50-170); TOTAL IRON BINDING CAPACITY 421 ug/dL (261-478); TRANSFERRIN 301 mg/dL (180-382)
[2024-03-04 23:00] VITALS: PULSE 78; RESP 18
[2024-03-04 23:44] VITALS: BP 108/59; O2SAT 100
[2024-03-04 23:45] VITALS: BP 115/60; PULSE 81; RESP 18; TEMP 98.3; O2SAT 100
[2024-03-05] VITALS (36 sets, daily range): BP systolic 92–158; BP diastolic 48–141; PULSE 61–91; RESP 15–29; TEMP 98.2–99.1; O2SAT 94–100
[2024-03-05] MEDS: SODIUM CHLORIDE 0.9% 250ML 250 ML IV ONE (00:49)
[2024-03-05] MEDS: SODIUM CHLORIDE 0.9% 1000ML 1,000 ML IV ONE (01:15)
[2024-03-05] MEDS: ONDANSETRON HCL INJ 2MG/ML 2ML 2 MG/ML VIAL IV PRN (03:03)
[2024-03-05] MEDS: SODIUM CHLORIDE 0.9% 250ML 500 ML ONE (03:55)
[2024-03-05] MEDS: INSULIN REGULAR, HUMAN 100 UNIT/1 ML SQ SCH (07:30)
[2024-03-05] MEDS: HYDROCODONE/APAP 5MG-325MG TAB PO PRN (08:15)
[2024-03-05 09:41] LABS: BASOPHILS % 0.3 % (0.0-1.0); EOSINOPHILS # (AUTO) 0.2 (0.0-0.4); EOSINOPHILS % 3.8 % (0.0-6.0); HEMATOCRIT 26.6 % (34.2-44.1); LYMPHOCYTES # (AUTO) 0.8 (1.0-3.2); LYMPHOCYTES % 12.4 % (18.0-39.1); MEAN CORPUSCULAR HEMOGLOBIN 28.3 pg (28-32); MEAN CORPUSCULAR HGB CONC 30.1 g/dL (31-35); MONOCYTES # (AUTO) 0.5 (0.2-0.8); MONOCYTES % 8.6 % (4.4-11.3); NEUTROPHILS # (AUTO) 4.7 (2.1-6.9); NEUTROPHILS % 74.6 % (38.7-80.0); PLATELET COUNT 101 x10e3/uL (140-360); RED BLOOD COUNT 2.83 x10e6/uL (3.6-5.1); RED CELL DISTRIBUTION WIDTH 15.9 % (11.7-14.4); WHITE BLOOD COUNT 6.31 x10e3/uL (4.8-10.8)
[2024-03-05 09:59] LABS: ALBUMIN 2.7 g/dL (3.5-5.0); ANION GAP 12.7 mmol/L (8-16); CALCIUM 7.6 mg/dL (8.4-10.2); CREATININE, SERUM 0.94 mg/dL (0.57-1.11); POTASSIUM 3.7 mmol/L (3.5-5.1); TOTAL PROTEIN 5.3 g/dL (6.5-8.1)
[2024-03-05 10:24] LABS: TROPONIN I 0.377 ng/mL (0-0.300)
[2024-03-05] MEDS ORDERED: POLYETHYLENE GLYCOL 3350 17 GM PACK PO PRN (11:15)
[2024-03-05] MEDS ORDERED: BISACODYL 10 MG SUPP PR PRN (11:15)
[2024-03-05] MEDS: LIDOCAINE 4% PATCH TP SCH (12:33)
[2024-03-05] MEDS: METHOCARBAMOL 750 MG TAB PO PRN (12:33)
[2024-03-05 15:59] LABS: HEMATOCRIT 26.9 % (34.2-44.1); HEMOGLOBIN 7.8 g/dL (12.0-16.0)
[2024-03-05 17:53] LABS: TROPONIN I 0.272 ng/mL (0-0.300)
[2024-03-05] MEDS: INSULIN GLARGINE 100 UNITS/ML VIAL SQ SCH (20:38)
[2024-03-06] VITALS (26 sets, daily range): BP systolic 99–141; BP diastolic 45–124; PULSE 66–97; RESP 11–30; TEMP 98.2–99.1; O2SAT 91–100
[2024-03-06 06:48] LABS: BASOPHILS % 0.3 % (0.0-1.0); EOSINOPHILS # (AUTO) 0.4 (0.0-0.4); EOSINOPHILS % 5.4 % (0.0-6.0); HEMATOCRIT 31.4 % (34.2-44.1); LYMPHOCYTES # (AUTO) 1.1 (1.0-3.2); LYMPHOCYTES % 15.5 % (18.0-39.1); MEAN CORPUSCULAR HEMOGLOBIN 27.9 pg (28-32); MEAN CORPUSCULAR HGB CONC 28.7 g/dL (31-35); MEAN CORPUSCULAR VOLUME 97.2 fL (81-99); MONOCYTES # (AUTO) 0.6 (0.2-0.8); MONOCYTES % 8.5 % (4.4-11.3); NEUTROPHILS # (AUTO) 4.8 (2.1-6.9); PLATELET COUNT 108 x10e3/uL (140-360); RED BLOOD COUNT 3.23 x10e6/uL (3.6-5.1); RED CELL DISTRIBUTION WIDTH 16.6 % (11.7-14.4); WHITE BLOOD COUNT 6.86 x10e3/uL (4.8-10.8)
[2024-03-06 07:13] LABS: ALBUMIN 2.8 g/dL (3.5-5.0); ANION GAP 14.1 mmol/L (8-16); BILIRUBIN,TOTAL 0.5 mg/dL (0.2-1.2); CALCIUM 7.9 mg/dL (8.4-10.2); CREATININE, SERUM 0.96 mg/dL (0.57-1.11); MAGNESIUM 2.1 MG/DL (1.3-2.1); POTASSIUM 4.1 mmol/L (3.5-5.1); TOTAL PROTEIN 5.6 g/dL (6.5-8.1)
[2024-03-06 07:35] LABS: TROPONIN I 0.219 ng/mL (0-0.300)
[2024-03-06] MEDS: AMIODARONE HCL 200 MG TAB PO SCH (08:30)
[2024-03-06] MEDS: SENNOSIDES 8.6 MG TAB PO SCH (08:30)
[2024-03-06] MEDS: METOPROLOL SUCCINATE 25 MG TAB XL PO SCH (08:31)
[2024-03-06] MEDS: DOCUSATE SODIUM 100 MG CAP PO SCH (08:31)
[2024-03-06] MEDS: FERROUS SULFATE 325 MG TAB PO SCH (08:31)
[2024-03-06] MEDS: IRON SUCROSE 100 MG in SODIUM CHLORIDE 0.9% 100 ML IV SCH (08:32)
[2024-03-06] MEDS: Morphine 2mg Syringe 2 MG/ML SYR IV PRN (16:52)
[2024-03-07] VITALS (31 sets, daily range): BP systolic 93–134; BP diastolic 53–97; PULSE 65–94; RESP 15–27; TEMP 97.8–99.2; O2SAT 69–100
[2024-03-07 07:05] LABS: ALBUMIN 2.6 g/dL (3.5-5.0); ANION GAP 11.9 mmol/L (8-16); BILIRUBIN,TOTAL 0.5 mg/dL (0.2-1.2); CALCIUM 7.9 mg/dL (8.4-10.2); CREATININE, SERUM 0.89 mg/dL (0.57-1.11); POTASSIUM 3.9 mmol/L (3.5-5.1); TOTAL PROTEIN 5.3 g/dL (6.5-8.1)
[2024-03-07 07:27] LABS: BASOPHILS % 0.6 % (0.0-1.0); EOSINOPHILS # (AUTO) 0.5 (0.0-0.4); EOSINOPHILS % 6.8 % (0.0-6.0); HEMATOCRIT 32.7 % (34.2-44.1); HEMOGLOBIN 9.3 g/dL (12.0-16.0); LYMPHOCYTES # (AUTO) 1.3 (1.0-3.2); LYMPHOCYTES % 18.5 % (18.0-39.1); MEAN CORPUSCULAR HEMOGLOBIN 28.2 pg (28-32); MEAN CORPUSCULAR HGB CONC 28.4 g/dL (31-35); MEAN CORPUSCULAR VOLUME 99.1 fL (81-99); MONOCYTES # (AUTO) 0.7 (0.2-0.8); MONOCYTES % 9.5 % (4.4-11.3); NEUTROPHILS # (AUTO) 4.7 (2.1-6.9); NEUTROPHILS % 64.2 % (38.7-80.0); PLATELET COUNT 105 x10e3/uL (140-360); RED CELL DISTRIBUTION WIDTH 16.3 % (11.7-14.4); WHITE BLOOD COUNT 7.24 x10e3/uL (4.8-10.8)
[2024-03-07] MEDS: FUROSEMIDE 40 MG TAB PO SCH (17:09)
[2024-03-08] VITALS (14 sets, daily range): BP systolic 103–128; BP diastolic 56–99; PULSE 63–110; RESP 14–24; TEMP 97.9–98.9; O2SAT 94–100
[2024-03-08 06:51] LABS: BASOPHILS % 0.5 % (0.0-1.0); EOSINOPHILS # (AUTO) 0.4 (0.0-0.4); EOSINOPHILS % 5.7 % (0.0-6.0); HEMATOCRIT 30.6 % (34.2-44.1); HEMOGLOBIN 8.6 g/dL (12.0-16.0); MEAN CORPUSCULAR HEMOGLOBIN 28.3 pg (28-32); MEAN CORPUSCULAR HGB CONC 28.1 g/dL (31-35); MEAN CORPUSCULAR VOLUME 100.7 fL (81-99); MONOCYTES # (AUTO) 0.6 (0.2-0.8); MONOCYTES % 9.8 % (4.4-11.3); NEUTROPHILS # (AUTO) 4.4 (2.1-6.9); NEUTROPHILS % 67.5 % (38.7-80.0); RED BLOOD COUNT 3.04 x10e6/uL (3.6-5.1); RED CELL DISTRIBUTION WIDTH 16.6 % (11.7-14.4); WHITE BLOOD COUNT 6.45 x10e3/uL (4.8-10.8)
[2024-03-08 06:59] LABS: PLATELET COUNT 75 x10e3/uL (140-360)
[2024-03-08 07:18] LABS: ANION GAP 14.7 mmol/L (8-16); CREATININE, SERUM 0.99 mg/dL (0.57-1.11); MAGNESIUM 1.8 MG/DL (1.3-2.1); POTASSIUM 3.7 mmol/L (3.5-5.1)
[2024-03-08] MEDS: CIPROFLOXACIN 250 MG TAB PO SCH (09:31)
[2024-03-08 15:30] LABS: BASOPHILS % 0.5 % (0.0-1.0); EOSINOPHILS # (AUTO) 0.4 (0.0-0.4); EOSINOPHILS % 5.9 % (0.0-6.0); HEMATOCRIT 32.8 % (34.2-44.1); HEMOGLOBIN 9.2 g/dL (12.0-16.0); LYMPHOCYTES # (AUTO) 0.9 (1.0-3.2); LYMPHOCYTES % 14.3 % (18.0-39.1); MEAN CORPUSCULAR HEMOGLOBIN 28.2 pg (28-32); MEAN CORPUSCULAR VOLUME 100.6 fL (81-99); MONOCYTES # (AUTO) 0.7 (0.2-0.8); NEUTROPHILS # (AUTO) 4.3 (2.1-6.9); NEUTROPHILS % 67.8 % (38.7-80.0); PLATELET COUNT 62 x10e3/uL (140-360); RED BLOOD COUNT 3.26 x10e6/uL (3.6-5.1); WHITE BLOOD COUNT 6.28 x10e3/uL (4.8-10.8)
[2024-03-09] VITALS (9 sets, daily range): BP systolic 102–123; BP diastolic 44–51; PULSE 66–76; RESP 18–25; TEMP 97.7–98.9; O2SAT 94–100
[2024-03-09 06:44] LABS: HEMATOCRIT 30.9 % (34.2-44.1); MEAN CORPUSCULAR HEMOGLOBIN 28.5 pg (28-32); MEAN CORPUSCULAR HGB CONC 28.5 g/dL (31-35); PLATELET COUNT 103 x10e3/uL (140-360); RED BLOOD COUNT 3.09 x10e6/uL (3.6-5.1); RED CELL DISTRIBUTION WIDTH 17.7 % (11.7-14.4); WHITE BLOOD COUNT 6.31 x10e3/uL (4.8-10.8)
[2024-03-09 06:54] LABS: HEMOGLOBIN 8.8 g/dL (12.0-16.0)
[2024-03-09 08:09] LABS: EOSINOPHILS % (MANUAL) 13 % (0-7); LYMPHOCYTES % (MANUAL) 10 % (19-48); MONOCYTES % (MANUAL) 9 % (3.4-9.0); NEUTROPHILS % (MANUAL) 68 % (40-74)
[2024-03-09 08:10] LABS: OVALOCYTES FEW
[2024-03-09 08:11] LABS: POLYCHROMASIA FEW
[2024-03-09 08:12] LABS: PLATELET ESTIMATE MODERATELY DECREASED
[2024-03-09 08:13] LABS: ANISOCYTOSIS SLIGHT; HYPOCHROMASIA SLIGHT; PLATELET MORPHOLOGY COMMENT NORMAL
[2024-03-09] MEDS: MAGNESIUM SULFATE 2GM/50ML 50 ML IV ONE (10:21)
[2024-03-09] MEDS: PANTOPRAZOLE SOD 40 MG TABEC PO SCH (16:07)
[2024-03-10] VITALS (8 sets, daily range): BP systolic 95–106; BP diastolic 51–59; PULSE 63–97; RESP 17–20; TEMP 97.6–98.3; O2SAT 63–97
[2024-03-10 05:30] LABS: BASOPHILS % 0.3 % (0.0-1.0); EOSINOPHILS # (AUTO) 0.5 (0.0-0.4); EOSINOPHILS % 6.4 % (0.0-6.0); HEMATOCRIT 31.3 % (34.2-44.1); HEMOGLOBIN 8.9 g/dL (12.0-16.0); LYMPHOCYTES # (AUTO) 1.6 (1.0-3.2); LYMPHOCYTES % 22.8 % (18.0-39.1); MEAN CORPUSCULAR HEMOGLOBIN 28.4 pg (28-32); MEAN CORPUSCULAR HGB CONC 28.4 g/dL (31-35); MONOCYTES # (AUTO) 0.7 (0.2-0.8); MONOCYTES % 9.3 % (4.4-11.3); NEUTROPHILS # (AUTO) 4.4 (2.1-6.9); NEUTROPHILS % 60.5 % (38.7-80.0); PLATELET COUNT 121 x10e3/uL (140-360); RED BLOOD COUNT 3.13 x10e6/uL (3.6-5.1); RED CELL DISTRIBUTION WIDTH 18.6 % (11.7-14.4); WHITE BLOOD COUNT 7.19 x10e3/uL (4.8-10.8)
[2024-03-10 06:13] LABS: ALBUMIN 2.5 g/dL (3.5-5.0); ALBUMIN/GLOBULIN RATIO 0.9 (0.8-2.0); ANION GAP 13.2 mmol/L (8-16); BILIRUBIN,TOTAL 0.5 mg/dL (0.2-1.2); CREATININE, SERUM 0.83 mg/dL (0.57-1.11); TOTAL PROTEIN 5.3 g/dL (6.5-8.1)
[2024-03-10 06:16] LABS: POTASSIUM 3.2 mmol/L (3.5-5.1)
[2024-03-10 06:41] LABS: MAGNESIUM 1.7 MG/DL (1.3-2.1)
[2024-03-10] MEDS ORDERED: IRON SUCROSE 0 ML IV ONE (09:33)
[2024-03-10] MEDS: FUROSEMIDE 20 MG TAB PO SCH (09:39)
[2024-03-10] MEDS ORDERED: ALBUTEROL/IPRATROPIUM 3 ML NEB NEB PRN (12:45)
[2024-03-10] MEDS: POTASSIUM CHLORIDE 10MEQ EA PO ONE (13:21)
[2024-03-10] MEDS: MAGNESIUM OXIDE 400 MG TAB PO ONE (13:21)
[2024-03-10] MEDS: LEVALBUTEROL HCL SOLN NEBU 0.63 MG/3 ML NEB INH PRN (13:47)
[2024-03-10] MEDS ORDERED: METHOCARBAMOL750 MG PO (14:21)
[2024-03-10] MEDS ORDERED: FUROSEMIDE20 MG PO (14:21)
[2024-03-10] MEDS ORDERED: CIPROFLOXACIN250 MG PO (14:21)
[2024-03-10] MEDS ORDERED: PROTONIX40 MG/ML PO (14:21)
[2024-03-10] MEDS ORDERED: Albuterol/Ipratropium Nebulize NEB (14:21)
[2024-03-10] MEDS ORDERED: MIRALAX17 GM PO (14:21)
[2024-03-10] MEDS ORDERED: AMIODARONE HCL100 MG PO (16:11)
[2024-03-10] MEDS ORDERED: ONDANSETRON HCL 4 MG ORAL DISINTEGRATING TAB PO PRN (17:30)
== END 2024-03-10 19:00 | DRG 811 ==
LOC: ER 20:35 → ERHOLD 22:17 → ICU 23:37 → MED/SURG2 03-09 20:10
PROVIDERS: ADMIT Internal Medicine; ATTEND Internal Medicine
PROC: 30233N1 Transfusion of Nonautologous Red Blood Cells into Peripheral Vein, Percutaneous Approach (ICD-10-PCS; principal; 2024-03-05)
DX: D50.0 Iron deficiency anemia secondary to blood loss (chronic) (principal); I21.A1 Myocardial infarction type 2; N17.9 Acute kidney failure, unspecified; I11.0 Hypertensive heart disease with heart failure; I50.22 Chronic systolic (congestive) heart failure; K92.2 Gastrointestinal hemorrhage, unspecified; N30.00 Acute cystitis without hematuria; D69.59 Other secondary thrombocytopenia; B96.20 Unspecified Escherichia coli [E. coli] as the cause of diseases classified elsewhere; E11.9 Type 2 diabetes mellitus without complications; I48.0 Paroxysmal atrial fibrillation; E78.2 Mixed hyperlipidemia; E66.811 Obesity, class 1; I25.10 Atherosclerotic heart disease of native coronary artery without angina pectoris; E89.0 Postprocedural hypothyroidism; K21.9 Gastro-esophageal reflux disease without esophagitis; E78.5 Hyperlipidemia, unspecified; Z11.52 Encounter for screening for COVID-19; T36.1X5A Adverse effect of cephalosporins and other beta-lactam antibiotics, initial encounter; Z68.30 Body mass index [BMI] 30.0-30.9, adult; Z79.82 Long term (current) use of aspirin; Z79.4 Long term (current) use of insulin; Z79.01 Long term (current) use of anticoagulants; Z79.84 Long term (current) use of oral hypoglycemic drugs; I25.2 Old myocardial infarction; Z99.3 Dependence on wheelchair; Z85.3 Personal history of malignant neoplasm of breast; Z85.51 Personal history of malignant neoplasm of bladder; Z90.11 Acquired absence of right breast and nipple; Z90.49 Acquired absence of other specified parts of digestive tract; Z88.0 Allergy status to penicillin; Z88.8 Allergy status to other drugs, medicaments and biological substances; Z87.891 Personal history of nicotine dependence
CPT/HCPCS: 36415; 71045; 76705; 78278; 80048; 80053; 81001; 82550; 82607; 82728; 82746; 82948; 83540; 83735; 84466; 84484; 85007; 85014; 85018; 85025; 85027; 85045; 85610; 85730; 86850; 86900; 86920; 87086; 87186; 93005; 94640; 94799; 96372; 99252; 99284; A9512; J0696; J1756; J1815; J2270; J2405; J2470; J3475; J7030; J7050; P9016

== ENCOUNTER 2024-03-14 18:52 | Inpatient (IN) | payer MEDICARE ==
[~2024-03-14] VITALS: Ht 160 cm; Wt 78.1 kg
[~2024-03-14 18:52] MED LIST changes: +AMIODARONE HCL100 MG PO; +Albuterol/Ipratropium Nebulize NEB; +CIPROFLOXACIN250 MG PO; +FUROSEMIDE20 MG PO; +METHOCARBAMOL750 MG PO; +MIRALAX17 GM PO; +PROTONIX40 MG/ML PO
[2024-03-14] MEDS ORDERED: FUROSEMIDE INJ 10 MG/ML 4 ML VIAL IV ONE (19:00)
[2024-03-14 19:33] VITALS: TEMP 98.3
[2024-03-14 19:45] LABS: ALBUMIN 3.1 g/dL (3.5-5.0); ALBUMIN/GLOBULIN RATIO 0.8 (0.8-2.0); ANION GAP 20.3 mmol/L (8-16); BILIRUBIN,TOTAL 0.6 mg/dL (0.2-1.2); CALCIUM 9.3 mg/dL (8.4-10.2); CREATININE, SERUM 0.96 mg/dL (0.57-1.11); POTASSIUM 4.3 mmol/L (3.5-5.1); TOTAL PROTEIN 7.1 g/dL (6.5-8.1)
[2024-03-14 20:03] LABS: INFLUENZA A AG NEGATIVE (NEGATIVE)
[2024-03-14 20:04] LABS: CORONAVIRUS COVID-19 AG NEGATIVE (NEGATIVE); INFLUENZA B AG NEGATIVE (NEGATIVE)
[2024-03-14] MEDS: FUROSEMIDE INJ 10 MG/ML 2 ML VIAL IV ONE (20:38)
[2024-03-14 21:09] LABS: BASOPHILS % 0.1 % (0.0-1.0); EOSINOPHILS # (AUTO) 0.1 (0.0-0.4); EOSINOPHILS % 0.9 % (0.0-6.0); HEMATOCRIT 38.2 % (34.2-44.1); HEMOGLOBIN 10.5 g/dL (12.0-16.0); LYMPHOCYTES # (AUTO) 0.4 (1.0-3.2); LYMPHOCYTES % 5.5 % (18.0-39.1); MEAN CORPUSCULAR HEMOGLOBIN 28.6 pg (28-32); MEAN CORPUSCULAR HGB CONC 27.5 g/dL (31-35); MEAN CORPUSCULAR VOLUME 104.1 fL (81-99); MONOCYTES # (AUTO) 0.3 (0.2-0.8); MONOCYTES % 4.6 % (4.4-11.3); NEUTROPHILS # (AUTO) 6.6 (2.1-6.9); NEUTROPHILS % 88.6 % (38.7-80.0); PLATELET COUNT 118 x10e3/uL (140-360); RED BLOOD COUNT 3.67 x10e6/uL (3.6-5.1); RED CELL DISTRIBUTION WIDTH 18.3 % (11.7-14.4); WHITE BLOOD COUNT 7.42 x10e3/uL (4.8-10.8)
[2024-03-14 21:34] LABS: B-TYPE NATRIURETIC PEPTIDE2 1166.6 pg/mL (0-100)
[2024-03-14] MEDS: ASPIRIN 81 MG CHEW TAB PO ONE (22:23)
[2024-03-14 22:55] LABS: COLOR,URINE YELLOW (YELLOW)
[2024-03-14 22:56] LABS: BILIRUBIN,URINE NEGATIVE (NEGATIVE); CLARITY,URINE CLOUDY (CLEAR); GLUCOSE, URINE 500 (NEGATIVE); KETONES,URINE NEGATIVE (NEGATIVE); LEUKOCYTE ESTERASE ,URINE LARGE (NEGATIVE); NITRITE,URINE NEGATIVE (NEGATIVE); PH,URINE 5.5 (5 - 7); PROTEIN,URINE DIPSTICK NEGATIVE (NEGATIVE); URINE UROBILINOGEN 0.2 mg/dL (0.2 - 1)
[2024-03-14 23:15] LABS: WBC,URINE (MAN) >50 /HPF (0-5)
[2024-03-14 23:18] LABS: BACTERIA,URINE MANY /HPF; EPITHELIAL CELLS,URINE FEW /LPF; RBC,URINE 0-5 /HPF (0-5); RENAL EPITHELIAL CELLS,URINE FEW; YEAST,URINE MANY
[2024-03-15] VITALS (15 sets, daily range): BP systolic 94–111; BP diastolic 45–59; PULSE 61–75; RESP 14–29; TEMP 97.1–98.8; O2SAT 84–100
[2024-03-15 04:44] LABS: BASOPHILS % 0.6 % (0.0-1.0); EOSINOPHILS # (AUTO) 0.2 (0.0-0.4); HEMATOCRIT 34.4 % (34.2-44.1); HEMOGLOBIN 9.7 g/dL (12.0-16.0); LYMPHOCYTES # (AUTO) 0.8 (1.0-3.2); LYMPHOCYTES % 15.9 % (18.0-39.1); MEAN CORPUSCULAR HEMOGLOBIN 28.8 pg (28-32); MEAN CORPUSCULAR HGB CONC 28.2 g/dL (31-35); MEAN CORPUSCULAR VOLUME 102.1 fL (81-99); MONOCYTES # (AUTO) 0.3 (0.2-0.8); MONOCYTES % 6.6 % (4.4-11.3); NEUTROPHILS # (AUTO) 3.4 (2.1-6.9); NEUTROPHILS % 72.5 % (38.7-80.0); PLATELET COUNT 116 x10e3/uL (140-360); RED BLOOD COUNT 3.37 x10e6/uL (3.6-5.1); WHITE BLOOD COUNT 4.73 x10e3/uL (4.8-10.8)
[2024-03-15 05:09] LABS: ALBUMIN 2.6 g/dL (3.5-5.0); ALBUMIN/GLOBULIN RATIO 0.8 (0.8-2.0); ANION GAP 16.5 mmol/L (8-16); BILIRUBIN,TOTAL 0.5 mg/dL (0.2-1.2); CALCIUM 8.7 mg/dL (8.4-10.2); CREATININE, SERUM 0.85 mg/dL (0.57-1.11); POTASSIUM 3.5 mmol/L (3.5-5.1); TOTAL PROTEIN 5.8 g/dL (6.5-8.1)
[2024-03-15 05:15] LABS: TROPONIN I 0.026 ng/mL (0-0.300)
[2024-03-15] MEDS ORDERED: DEXTROSE 50% SYRINGE 50 ML IV PRN (07:45)
[2024-03-15] MEDS ORDERED: ALBUTEROL/IPRATROPIUM 3 ML NEB NEB PRN (07:45)
[2024-03-15] MEDS ORDERED: NITROGLYCERIN 0.4 MG SUBL SL PRN (07:45)
[2024-03-15] MEDS ORDERED: SIMVASTATIN 40 MG TAB PO SCH (09:00)
[2024-03-15] MEDS: METOPROLOL SUCCINATE 25 MG TAB XL PO SCH (09:00)
[2024-03-15] MEDS: POTASSIUM CHLORIDE 10MEQ EA PO SCH (10:48)
[2024-03-15] MEDS: FUROSEMIDE INJ 10 MG/ML 4 ML VIAL IV SCH (10:48)
[2024-03-15] MEDS: AMIODARONE HCL 200 MG TAB PO SCH (10:49)
[2024-03-15] MEDS: DOCUSATE SODIUM 100 MG CAP PO SCH (10:49)
[2024-03-15] MEDS: INSULIN LISPRO 100 UNIT/1 ML 3ML VIAL SQ SCH ×2 (11:30→12:00)
[2024-03-15 12:20] LABS: BAND NEUTROPHILS % (MANUAL) 2 %; BASOPHILS % (MANUAL) 1 % (0-1.5); EOSINOPHILS % (MANUAL) 3 % (0-7); LYMPHOCYTES % (MANUAL) 19 % (19-48); NEUTROPHILS % (MANUAL) 75 % (40-74); PLATELET ESTIMATE SLIGHTLY DECREASED; PLATELET MORPHOLOGY COMMENT NORMAL; RBC MORPHOLOGY COMMENT NORMAL
[2024-03-15] MEDS: LEVOFLOXACIN 500MG/D5W 100ML 100 ML IV SCH (12:30)
[2024-03-15] MEDS ORDERED: BISACODYL 10 MG SUPP PR PRN (14:45)
[2024-03-15] MEDS ORDERED: ACETAMINOPHEN 325 MG TAB PO PRN (14:45)
[2024-03-15 16:55] LABS: TROPONIN I 0.022 ng/mL (0-0.300)
[2024-03-15] MEDS: ONDANSETRON HCL INJ 2MG/ML 2ML 2 MG/ML VIAL IV PRN (17:17)
[2024-03-15] MEDS: PANTOPRAZOLE SOD 40 MG TABEC PO SCH (17:18)
[2024-03-15] MEDS: INSULIN GLARGINE 100 UNITS/ML VIAL SQ SCH (21:00)
[2024-03-15] MEDS: METHOCARBAMOL 750 MG TAB PO PRN (21:32)
[2024-03-15] MEDS: CRESTOR 10MG PO SCH (21:33)
[2024-03-16] VITALS (8 sets, daily range): BP systolic 96–111; BP diastolic 42–55; PULSE 63–70; RESP 17–21; TEMP 97.9–99.1; O2SAT 90–100
[2024-03-16 06:06] LABS: BASOPHILS % 0.2 % (0.0-1.0); EOSINOPHILS # (AUTO) 0.2 (0.0-0.4); EOSINOPHILS % 3.9 % (0.0-6.0); HEMATOCRIT 33.1 % (34.2-44.1); HEMOGLOBIN 9.2 g/dL (12.0-16.0); LYMPHOCYTES # (AUTO) 0.8 (1.0-3.2); LYMPHOCYTES % 12.5 % (18.0-39.1); MEAN CORPUSCULAR HEMOGLOBIN 28.3 pg (28-32); MEAN CORPUSCULAR HGB CONC 27.8 g/dL (31-35); MEAN CORPUSCULAR VOLUME 101.8 fL (81-99); MONOCYTES # (AUTO) 0.4 (0.2-0.8); MONOCYTES % 5.9 % (4.4-11.3); NEUTROPHILS # (AUTO) 4.8 (2.1-6.9); NEUTROPHILS % 77.3 % (38.7-80.0); PLATELET COUNT 127 x10e3/uL (140-360); RED BLOOD COUNT 3.25 x10e6/uL (3.6-5.1); RED CELL DISTRIBUTION WIDTH 17.1 % (11.7-14.4); WHITE BLOOD COUNT 6.22 x10e3/uL (4.8-10.8)
[2024-03-16 06:45] LABS: ALBUMIN 2.4 g/dL (3.5-5.0); ALBUMIN/GLOBULIN RATIO 0.8 (0.8-2.0); ANION GAP 14.7 mmol/L (8-16); BILIRUBIN,TOTAL 0.6 mg/dL (0.2-1.2); CALCIUM 8.4 mg/dL (8.4-10.2); CREATININE, SERUM 0.87 mg/dL (0.57-1.11); MAGNESIUM 1.5 MG/DL (1.3-2.1); POTASSIUM 3.7 mmol/L (3.5-5.1); TOTAL PROTEIN 5.5 g/dL (6.5-8.1)
[2024-03-16] MEDS: POLYETHYLENE GLYCOL 3350 17 GM PACK PO PRN (10:54)
[2024-03-16] MEDS: SENNOSIDES 8.6 MG TAB PO SCH (10:55)
[2024-03-16] MEDS: DOCUSATE SODIUM 100 MG CAP PO SCH (11:02)
[2024-03-16] MEDS: SODIUM CHLORIDE 0.9% 250ML 250 ML ONE (12:03)
[2024-03-17] VITALS (11 sets, daily range): BP systolic 81–104; BP diastolic 46–58; PULSE 63–72; RESP 16–21; TEMP 97.8–98.4; O2SAT 96–100
[2024-03-17 06:49] LABS: BASOPHILS % 0.3 % (0.0-1.0); EOSINOPHILS # (AUTO) 0.2 (0.0-0.4); EOSINOPHILS % 3.7 % (0.0-6.0); HEMATOCRIT 34.1 % (34.2-44.1); HEMOGLOBIN 9.7 g/dL (12.0-16.0); LYMPHOCYTES % 16.6 % (18.0-39.1); MEAN CORPUSCULAR HEMOGLOBIN 28.6 pg (28-32); MEAN CORPUSCULAR HGB CONC 28.4 g/dL (31-35); MEAN CORPUSCULAR VOLUME 100.6 fL (81-99); MONOCYTES # (AUTO) 0.4 (0.2-0.8); MONOCYTES % 6.3 % (4.4-11.3); NEUTROPHILS # (AUTO) 4.3 (2.1-6.9); NEUTROPHILS % 72.8 % (38.7-80.0); PLATELET COUNT 123 x10e3/uL (140-360); RED BLOOD COUNT 3.39 x10e6/uL (3.6-5.1); RED CELL DISTRIBUTION WIDTH 16.8 % (11.7-14.4); WHITE BLOOD COUNT 5.91 x10e3/uL (4.8-10.8)
[2024-03-17 07:22] LABS: ANION GAP 14.5 mmol/L (8-16); CALCIUM 8.3 mg/dL (8.4-10.2); CREATININE, SERUM 0.86 mg/dL (0.57-1.11); MAGNESIUM 1.6 MG/DL (1.3-2.1); POTASSIUM 3.5 mmol/L (3.5-5.1)
[2024-03-17] MEDS: FLUCONAZOLE 100 MG TAB PO SCH (11:03)
[2024-03-17] MEDS: MAGNESIUM SULFATE 2GM/50ML 50 ML IV ONE (12:55)
[2024-03-17] MEDS: POTASSIUM CHLORIDE 10MEQ EA PO ONE (12:58)
[2024-03-18] VITALS (10 sets, daily range): BP systolic 91–110; BP diastolic 43–59; PULSE 60–74; RESP 18–20; TEMP 97.5–98.7; O2SAT 96–98
[2024-03-18 08:32] LABS: BASOPHILS % 0.3 % (0.0-1.0); EOSINOPHILS # (AUTO) 0.2 (0.0-0.4); EOSINOPHILS % 2.7 % (0.0-6.0); HEMOGLOBIN 10.8 g/dL (12.0-16.0); LYMPHOCYTES # (AUTO) 0.9 (1.0-3.2); LYMPHOCYTES % 12.2 % (18.0-39.1); MEAN CORPUSCULAR HEMOGLOBIN 28.8 pg (28-32); MEAN CORPUSCULAR HGB CONC 28.4 g/dL (31-35); MEAN CORPUSCULAR VOLUME 101.3 fL (81-99); MONOCYTES # (AUTO) 0.3 (0.2-0.8); MONOCYTES % 4.8 % (4.4-11.3); NEUTROPHILS # (AUTO) 5.5 (2.1-6.9); NEUTROPHILS % 79.6 % (38.7-80.0); PLATELET COUNT 91 x10e3/uL (140-360); RED BLOOD COUNT 3.75 x10e6/uL (3.6-5.1); RED CELL DISTRIBUTION WIDTH 16.7 % (11.7-14.4); WHITE BLOOD COUNT 6.94 x10e3/uL (4.8-10.8)
[2024-03-18] MEDS: MIDODRINE HCL 5 MG TABLET PO SCH (08:36)
[2024-03-18] MEDS: MAGNESIUM SULFATE 2GM/50ML 50 ML IV ONE (08:46)
[2024-03-18 09:00] LABS: ANION GAP 13.9 mmol/L (8-16); CALCIUM 8.7 mg/dL (8.4-10.2); CREATININE, SERUM 0.97 mg/dL (0.57-1.11); MAGNESIUM 2.3 MG/DL (1.3-2.1); POTASSIUM 3.9 mmol/L (3.5-5.1)
[2024-03-18] MEDS ORDERED: ONDANSETRON HCL 4 MG ORAL DISINTEGRATING TAB PO PRN (16:15)
[2024-03-19] VITALS (10 sets, daily range): BP systolic 95–124; BP diastolic 51–79; PULSE 63–71; RESP 16–20; TEMP 97.3–98.4; O2SAT 95–100
[2024-03-19 07:02] LABS: BASOPHILS % 0.5 % (0.0-1.0); EOSINOPHILS # (AUTO) 0.2 (0.0-0.4); EOSINOPHILS % 2.8 % (0.0-6.0); HEMATOCRIT 36.9 % (34.2-44.1); HEMOGLOBIN 10.2 g/dL (12.0-16.0); LYMPHOCYTES # (AUTO) 0.9 (1.0-3.2); LYMPHOCYTES % 15.2 % (18.0-39.1); MEAN CORPUSCULAR HEMOGLOBIN 28.3 pg (28-32); MEAN CORPUSCULAR HGB CONC 27.6 g/dL (31-35); MEAN CORPUSCULAR VOLUME 102.2 fL (81-99); MONOCYTES # (AUTO) 0.4 (0.2-0.8); MONOCYTES % 6.7 % (4.4-11.3); NEUTROPHILS # (AUTO) 4.5 (2.1-6.9); NEUTROPHILS % 74.3 % (38.7-80.0); PLATELET COUNT 135 x10e3/uL (140-360); RED BLOOD COUNT 3.61 x10e6/uL (3.6-5.1); RED CELL DISTRIBUTION WIDTH 16.6 % (11.7-14.4)
[2024-03-19 07:24] LABS: CALCIUM 8.4 mg/dL (8.4-10.2); CREATININE, SERUM 0.87 mg/dL (0.57-1.11); MAGNESIUM 2.1 MG/DL (1.3-2.1)
[2024-03-19] MEDS: MAGNESIUM OXIDE 400 MG TAB PO SCH (08:14)
[2024-03-19] MEDS: LEVOFLOXACIN 500 MG TAB PO SCH (12:15)
[2024-03-20] VITALS (8 sets, daily range): BP systolic 100–126; BP diastolic 33–60; PULSE 62–75; RESP 17–22; TEMP 97.4–98.1; O2SAT 96–100
[2024-03-20 06:40] LABS: BASOPHILS % 0.5 % (0.0-1.0); EOSINOPHILS # (AUTO) 0.2 (0.0-0.4); EOSINOPHILS % 3.4 % (0.0-6.0); HEMATOCRIT 33.5 % (34.2-44.1); LYMPHOCYTES # (AUTO) 0.9 (1.0-3.2); LYMPHOCYTES % 16.2 % (18.0-39.1); MEAN CORPUSCULAR HEMOGLOBIN 28.5 pg (28-32); MEAN CORPUSCULAR HGB CONC 29.9 g/dL (31-35); MEAN CORPUSCULAR VOLUME 95.4 fL (81-99); MONOCYTES # (AUTO) 0.4 (0.2-0.8); NEUTROPHILS # (AUTO) 4.1 (2.1-6.9); NEUTROPHILS % 72.7 % (38.7-80.0); PLATELET COUNT 162 x10e3/uL (140-360); RED BLOOD COUNT 3.51 x10e6/uL (3.6-5.1); RED CELL DISTRIBUTION WIDTH 16.7 % (11.7-14.4); WHITE BLOOD COUNT 5.61 x10e3/uL (4.8-10.8)
[2024-03-20 07:15] LABS: CALCIUM 8.5 mg/dL (8.4-10.2); CREATININE, SERUM 0.92 mg/dL (0.57-1.11)
[2024-03-21] VITALS (8 sets, daily range): BP systolic 106–129; BP diastolic 42–59; PULSE 60–74; RESP 17–22; TEMP 97.6–98.5; O2SAT 95–100
[2024-03-21 06:31] LABS: BASOPHILS % 0.8 % (0.0-1.0); EOSINOPHILS # (AUTO) 0.2 (0.0-0.4); EOSINOPHILS % 4.7 % (0.0-6.0); HEMATOCRIT 35.2 % (34.2-44.1); HEMOGLOBIN 10.5 g/dL (12.0-16.0); LYMPHOCYTES % 19.9 % (18.0-39.1); MEAN CORPUSCULAR HGB CONC 29.8 g/dL (31-35); MEAN CORPUSCULAR VOLUME 93.9 fL (81-99); MONOCYTES # (AUTO) 0.4 (0.2-0.8); MONOCYTES % 7.1 % (4.4-11.3); NEUTROPHILS # (AUTO) 3.4 (2.1-6.9); NEUTROPHILS % 67.1 % (38.7-80.0); PLATELET COUNT 166 x10e3/uL (140-360); RED BLOOD COUNT 3.75 x10e6/uL (3.6-5.1); RED CELL DISTRIBUTION WIDTH 16.6 % (11.7-14.4); WHITE BLOOD COUNT 5.08 x10e3/uL (4.8-10.8)
[2024-03-21 06:51] LABS: ANION GAP 15.6 mmol/L (8-16); CALCIUM 8.6 mg/dL (8.4-10.2); CREATININE, SERUM 0.9 mg/dL (0.57-1.11); POTASSIUM 3.6 mmol/L (3.5-5.1)
[2024-03-22] VITALS (7 sets, daily range): BP systolic 102–129; BP diastolic 48–73; PULSE 67–74; RESP 17–22; TEMP 97.9–98.7; O2SAT 95–100
[2024-03-22 06:18] LABS: BASOPHILS % 0.7 % (0.0-1.0); EOSINOPHILS # (AUTO) 0.2 (0.0-0.4); HEMATOCRIT 39.3 % (34.2-44.1); LYMPHOCYTES # (AUTO) 1.5 (1.0-3.2); LYMPHOCYTES % 24.1 % (18.0-39.1); MEAN CORPUSCULAR HEMOGLOBIN 27.8 pg (28-32); MEAN CORPUSCULAR VOLUME 99.5 fL (81-99); MONOCYTES # (AUTO) 0.4 (0.2-0.8); MONOCYTES % 7.1 % (4.4-11.3); NEUTROPHILS # (AUTO) 3.9 (2.1-6.9); NEUTROPHILS % 63.8 % (38.7-80.0); PLATELET COUNT 151 x10e3/uL (140-360); RED BLOOD COUNT 3.95 x10e6/uL (3.6-5.1); RED CELL DISTRIBUTION WIDTH 16.1 % (11.7-14.4); WHITE BLOOD COUNT 6.06 x10e3/uL (4.8-10.8)
[2024-03-22 06:42] LABS: ANION GAP 16.7 mmol/L (8-16); CALCIUM 8.9 mg/dL (8.4-10.2); CREATININE, SERUM 0.85 mg/dL (0.57-1.11); POTASSIUM 3.7 mmol/L (3.5-5.1)
[2024-03-22] MEDS ORDERED: MIDODRINE HCL5 MG PO (11:40)
[2024-03-22] MEDS ORDERED: DIFLUCAN100 MG PO (11:40)
[2024-03-22] MEDS ORDERED: FUROSEMIDE40 MG PO (11:40)
[2024-03-22] MEDS ORDERED: MAG-OXIDE400 MG PO (11:40)
[2024-03-23] MEDS ORDERED: FUROSEMIDE 40 MG TAB PO SCH (09:00)
== END 2024-03-22 16:34 | DRG 291 ==
LOC: ER 18:56 → ERHOLD 21:44 → IMCU 03-15 01:03 → MED/SURG2 03-15 14:17
PROVIDERS: ADMIT Internal Medicine; ATTEND Internal Medicine
PROC: 0T9B70Z Drainage of Bladder with Drainage Device, Via Natural or Artificial Opening (ICD-10-PCS; 2024-03-14)
PROC: 5A09357 Assistance with Respiratory Ventilation, Less than 24 Consecutive Hours, Continuous Positive Airway Pressure (ICD-10-PCS; 2024-03-14)
PROC: 05HY33Z Insertion of Infusion Device into Upper Vein, Percutaneous Approach (ICD-10-PCS; principal; 2024-03-16)
DX: I11.0 Hypertensive heart disease with heart failure (principal); I50.43 Acute on chronic combined systolic (congestive) and diastolic (congestive) heart failure; J96.01 Acute respiratory failure with hypoxia; J90 Pleural effusion, not elsewhere classified; E87.20 Acidosis, unspecified; J81.1 Chronic pulmonary edema; B37.49 Other urogenital candidiasis; D69.6 Thrombocytopenia, unspecified; I48.0 Paroxysmal atrial fibrillation; E11.9 Type 2 diabetes mellitus without complications; E78.2 Mixed hyperlipidemia; D50.0 Iron deficiency anemia secondary to blood loss (chronic); I08.0 Rheumatic disorders of both mitral and aortic valves; Z11.52 Encounter for screening for COVID-19; E03.9 Hypothyroidism, unspecified; I25.10 Atherosclerotic heart disease of native coronary artery without angina pectoris; K21.9 Gastro-esophageal reflux disease without esophagitis; R53.81 Other malaise; E66.811 Obesity, class 1; Z68.30 Body mass index [BMI] 30.0-30.9, adult; Z79.4 Long term (current) use of insulin; Z79.84 Long term (current) use of oral hypoglycemic drugs; Z79.85 Long-term (current) use of injectable non-insulin antidiabetic drugs; I25.2 Old myocardial infarction; Z85.51 Personal history of malignant neoplasm of bladder; Z85.3 Personal history of malignant neoplasm of breast; Z90.49 Acquired absence of other specified parts of digestive tract; Z90.11 Acquired absence of right breast and nipple; Z88.0 Allergy status to penicillin; Z88.8 Allergy status to other drugs, medicaments and biological substances
CPT/HCPCS: 36415; 51700; 71045; 80048; 80053; 81001; 82550; 82948; 83605; 83735; 83880; 84484; 85025; 87040; 87086; 93005; 93306; 94660; 94760; 94799; 96372; 97139; 99252; 99285; J1940; J1956; J2405; J3475; J7050

== ENCOUNTER 2024-09-03 16:50 | Inpatient (IN) | payer MEDICARE ==
[~2024-09-03] VITALS: Ht 154.9 cm; Wt 59.0 kg
[~2024-09-03 16:50] MED LIST changes: +BENADRYL25 M1 PO; +CALCIUM CARBON500 MG PO; +CARAFATE1 GM PO; +DIFLUCAN100 MG PO; +DOCUSATE SODIU100 MG PO; +DULCOLAX10 MG PR; +K DUR10 MEQ PO; +MAG-OXIDE400 MG PO; +METOLAZONE5 MG PO; +MIDODRINE HCL10 MG PO; +MIDODRINE HCL5 MG PO; +ONDANSETRON ODT8 MG PO; +PAROXETINE HCL20 MG PO; +SENNA LAX8.6 MG PO; +SIMETHICONE80 MG PO; +SUCRALFATE1 GM PO; +TRAZODONE HCL50 MG PO; +TRIAMCINOLONE A15 G3 TP
[2024-09-03 16:58] VITALS: TEMP 98.6
[2024-09-03 17:39] LABS: LEUKOCYTE ESTERASE ,URINE MODERATE (NEGATIVE); PROTEIN,URINE DIPSTICK 1+ (NEGATIVE); URINE UROBILINOGEN 0.2 mg/dL (0.2 - 1)
[2024-09-03 17:49] LABS: EPITHELIAL CELLS,URINE MODERATE /LPF; WBC,URINE (MAN) 21-50 /HPF (0-5)
[2024-09-03 17:50] LABS: YEAST,URINE FEW
[2024-09-03 18:31] LABS: BASOPHILS % 0.5 % (0.0-1.0); EOSINOPHILS % 1.8 % (0.0-6.0); LYMPHOCYTES % 15.4 % (18.0-39.1); MONOCYTES % 9.7 % (4.4-11.3); NEUTROPHILS % 72.1 % (38.7-80.0); RED CELL DISTRIBUTION WIDTH 18.2 % (11.7-14.4)
[2024-09-03 18:57] LABS: EST GLOMERULAR FILTRATION RATE 42.0 ML/MIN (>=60)
[2024-09-03 19:30] VITALS: PULSE 78; RESP 24
[2024-09-03] MEDS ORDERED: SODIUM CHLORIDE FLUSH 10 ML SYR INJ PRN (19:30)
[2024-09-03 21:00] VITALS: BP 155/85; O2SAT 98
[2024-09-03] MEDS ORDERED: MELATONIN 5 MG TABLET PO PRN (21:45)
[2024-09-03] MEDS ORDERED: ONDANSETRON HCL 4 MG ORAL DISINTEGRATING TAB PO PRN (21:45)
[2024-09-03 21:59] LABS: % IRON SATURATION 8.0 % (15-50)
[2024-09-03 23:12] VITALS: BP 111/61; PULSE 75; RESP 17; TEMP 97.7; O2SAT 98
[2024-09-04] VITALS (7 sets, daily range): BP systolic 84–149; BP diastolic 45–95; PULSE 78–123; RESP 16–20; TEMP 97.6–98.2; O2SAT 95–100
[2024-09-04] MEDS: FUROSEMIDE INJ 10 MG/ML 4 ML VIAL IV SCH (00:12)
[2024-09-04] MEDS: MAGNESIUM SULF 1GRAM/DEXTROSE 100 ML IV ONE ×2 (00:13)
[2024-09-04] MEDS ORDERED: DEXTROSE 50% SYRINGE 50 ML IV PRN (08:30)
[2024-09-04] MEDS: IRON SUCROSE 100 MG in SODIUM CHLORIDE 0.9% 100 ML IV SCH (09:30)
[2024-09-04] MEDS: SODIUM CHLORIDE 0.9% 250ML 250 ML ONE (09:33)
[2024-09-04] MEDS: INSULIN LISPRO 100 UNIT/1 ML 3ML VIAL SQ SCH (11:30)
[2024-09-04] MEDS ORDERED: FERROUS SULFAT325 MG PO (16:56)
[2024-09-04] MEDS ORDERED: PANTOPRAZOLE SO40 MG PO (16:56)
[2024-09-04] MEDS ORDERED: INSULIN LI100 UNIT/2 SQ (16:56)
[2024-09-04] MEDS ORDERED: CRESTOR40 MG PEG (16:57)
[2024-09-04] MEDS ORDERED: METFORMIN HCL850 MG PO (16:58)
[2024-09-04] MEDS ORDERED: POTASSIUM CHLO20 ME2 PO (17:02)
[2024-09-04] MEDS: POTASSIUM CHLORIDE 20 MEQ TAB CR PO STA (18:19)
[2024-09-04] MEDS: SODIUM CHLORIDE 0.9% 250ML 250 ML IV ONE (21:27)
[2024-09-05 01:11] LABS: BASOPHILS % 0.7 % (0.0-1.0); EOSINOPHILS % 1.3 % (0.0-6.0); LYMPHOCYTES % 11.4 % (18.0-39.1); MONOCYTES % 10.5 % (4.4-11.3); NEUTROPHILS % 75.7 % (38.7-80.0); RED CELL DISTRIBUTION WIDTH 17.8 % (11.7-14.4)
[2024-09-05 01:21] LABS: EST GLOMERULAR FILTRATION RATE 42.0 ML/MIN (>=60)
[2024-09-05] MEDS: POTASSIUM CHLORIDE 20MEQ/100ML 100 ML IV ONE (05:00)
[2024-09-05] MEDS: POTASSIUM CHLORIDE 20 MEQ TAB CR PO STA ×3 (05:24→18:14)
[2024-09-05 07:17] LABS: BASOPHILS % 0.5 % (0.0-1.0); EOSINOPHILS % 1.4 % (0.0-6.0); LYMPHOCYTES % 15.2 % (18.0-39.1); MONOCYTES % 12.9 % (4.4-11.3); NEUTROPHILS % 69.5 % (38.7-80.0); RED CELL DISTRIBUTION WIDTH 17.3 % (11.7-14.4)
[2024-09-05 07:43] LABS: EST GLOMERULAR FILTRATION RATE 43.0 ML/MIN (>=60)
[2024-09-05 08:00] VITALS: BP 125/55; PULSE 76; RESP 18; TEMP 98.4; O2SAT 95
[2024-09-05 08:12] VITALS: BP 125/55; PULSE 76; RESP 18; TEMP 98.4; O2SAT 95
[2024-09-05] MEDS: SODIUM CHLORIDE 0.9% 250ML 250 ML IV ONE (09:54)
[2024-09-05] MEDS: SODIUM CHLORIDE 0.9% 100 ML ONE (09:54)
[2024-09-05] MEDS: POTASSIUM CHLORIDE 20 MEQ TAB CR PO ONE (12:16)
[2024-09-05 12:45] VITALS: BP 143/64; PULSE 75; RESP 19; TEMP 97.9; O2SAT 96
[2024-09-05] MEDS: ALTEPLASE RECOMBINANT 2 MG/2 ML VIAL IV ONE (16:52)
[2024-09-05 17:10] VITALS: BP 128/66; PULSE 73; RESP 19; TEMP 97.9; O2SAT 99
[2024-09-05] MEDS: POTASSIUM CHLORIDE 10MEQ/100ML 100 ML IV SCH (18:14)
[2024-09-05 20:00] VITALS: BP 108/51; PULSE 75; RESP 18; TEMP 97.9; O2SAT 99
[2024-09-05] MEDS: CRESTOR 10MG PO SCH (20:18)
[2024-09-06] VITALS (7 sets, daily range): BP systolic 91–117; BP diastolic 43–84; PULSE 77–89; RESP 15–18; TEMP 97.3–98.8; O2SAT 93–100
[2024-09-06] MEDS: FUROSEMIDE INJ 10 MG/ML 4 ML VIAL IV SCH (08:53)
[2024-09-06] MEDS: METOPROLOL SUCCINATE 25 MG TAB XL PO SCH (08:54)
[2024-09-06] MEDS: AMIODARONE HCL 200 MG TAB PO SCH (09:13)
[2024-09-06 10:22] LABS: BASOPHILS % 0.4 % (0.0-1.0); EOSINOPHILS % 2.3 % (0.0-6.0); LYMPHOCYTES % 14.1 % (18.0-39.1); MONOCYTES % 7.5 % (4.4-11.3); NEUTROPHILS % 75.4 % (38.7-80.0); RED CELL DISTRIBUTION WIDTH 17.7 % (11.7-14.4)
[2024-09-06 12:46] LABS: EST GLOMERULAR FILTRATION RATE 44.0 ML/MIN (>=60)
[2024-09-06] MEDS: TRAZODONE HCL 50 MG TAB PO SCH (21:44)
[2024-09-06] MEDS: MELATONIN 3 MG TAB PO SCH (21:48)
[2024-09-07] VITALS: BP 104/43; PULSE 83; RESP 16; TEMP 98.1; O2SAT 94
[2024-09-07 04:00] VITALS: BP 112/41; PULSE 84; RESP 18; TEMP 98; O2SAT 97
[2024-09-07 06:35] LABS: BASOPHILS % 0.3 % (0.0-1.0); EOSINOPHILS % 5.1 % (0.0-6.0); LYMPHOCYTES % 16.8 % (18.0-39.1); MONOCYTES % 5.8 % (4.4-11.3); NEUTROPHILS % 71.6 % (38.7-80.0); RED CELL DISTRIBUTION WIDTH 17.9 % (11.7-14.4)
[2024-09-07 07:05] LABS: EST GLOMERULAR FILTRATION RATE 42.0 ML/MIN (>=60)
[2024-09-07 09:34] VITALS: BP 90/45; PULSE 80; RESP 18; TEMP 98.1; O2SAT 100
[2024-09-07] MEDS: POTASSIUM CHLORIDE 10MEQ EA PO ONE ×3 (10:30→18:49)
[2024-09-07] MEDS: MAGNESIUM SULFATE 2GM/50ML 50 ML IV ONE (10:31)
[2024-09-07] MEDS: FLUCONAZOLE 100 MG TAB PO SCH (10:34)
[2024-09-07] MEDS: INSULIN GLARGINE 100 UNITS/ML VIAL SQ SCH (12:36)
[2024-09-07 13:10] VITALS: BP 138/88; PULSE 99; RESP 20; TEMP 98.6; O2SAT 96
[2024-09-07 16:54] LABS: EST GLOMERULAR FILTRATION RATE 45.0 ML/MIN (>=60)
[2024-09-07 20:00] VITALS: BP 121/66; PULSE 80; RESP 18; TEMP 97.8; O2SAT 100
[2024-09-08 04:00] VITALS: BP 123/67; PULSE 79; RESP 18; TEMP 98.2; O2SAT 100
[2024-09-08 07:24] LABS: BASOPHILS % 0.3 % (0.0-1.0); EOSINOPHILS % 6.0 % (0.0-6.0); LYMPHOCYTES % 14.5 % (18.0-39.1); MONOCYTES % 6.8 % (4.4-11.3); NEUTROPHILS % 72.1 % (38.7-80.0); RED CELL DISTRIBUTION WIDTH 18.6 % (11.7-14.4)
[2024-09-08 07:37] LABS: EST GLOMERULAR FILTRATION RATE 45.0 ML/MIN (>=60)
[2024-09-08 12:13] VITALS: BP 94/44; PULSE 81; RESP 20; TEMP 97.8; O2SAT 95
[2024-09-08] MEDS: POTASSIUM CHLORIDE 10MEQ EA PO SCH (12:58)
[2024-09-08 14:20] VITALS: BP 117/79; PULSE 86; RESP 20; TEMP 97.9; O2SAT 98
[2024-09-08 17:08] VITALS: BP 105/50; PULSE 82; RESP 20; TEMP 98.2; O2SAT 100
[2024-09-08 19:56] VITALS: BP 105/50; PULSE 82; RESP 20; TEMP 98.2; O2SAT 100
[2024-09-08 20:00] VITALS: BP 147/88; PULSE 80; RESP 18; TEMP 97.9; O2SAT 99
[2024-09-09] VITALS: BP 138/66; PULSE 79; RESP 18; TEMP 98.2; O2SAT 100
[2024-09-09 04:00] VITALS: BP 139/64; PULSE 85; RESP 18; TEMP 97.8; O2SAT 100
[2024-09-09 06:00] LABS: BASOPHILS % 0.3 % (0.0-1.0); EOSINOPHILS % 5.9 % (0.0-6.0); LYMPHOCYTES % 16.3 % (18.0-39.1); MONOCYTES % 5.9 % (4.4-11.3); NEUTROPHILS % 71.2 % (38.7-80.0); RED CELL DISTRIBUTION WIDTH 19.4 % (11.7-14.4)
[2024-09-09 06:27] LABS: EST GLOMERULAR FILTRATION RATE 49.0 ML/MIN (>=60)
[2024-09-09 07:45] VITALS: BP 139/64; PULSE 85; RESP 18; TEMP 97.8; O2SAT 100
[2024-09-09 08:47] VITALS: BP 111/65; PULSE 83; RESP 18; TEMP 98.2; O2SAT 98
[2024-09-09 12:22] VITALS: BP 156/86; PULSE 85; RESP 18; TEMP 98.3; O2SAT 97
[2024-09-09] MEDS: FUROSEMIDE INJ 10 MG/ML 4 ML VIAL IV ONE (18:37)
[2024-09-09] MEDS: ACETAZOLAMIDE 250 MG TAB PO ONE (18:37)
[2024-09-09] MEDS: POTASSIUM CHLORIDE 20 MEQ TAB CR PO STA (18:38)
[2024-09-09 20:00] VITALS: BP 116/58; PULSE 75; RESP 16; TEMP 97.5; O2SAT 100
[2024-09-10] VITALS (10 sets, daily range): BP systolic 93–118; BP diastolic 48–70; PULSE 81–96; RESP 16–18; TEMP 97.5–98; O2SAT 97–100
[2024-09-10 07:01] LABS: BASOPHILS % 0.3 % (0.0-1.0); EOSINOPHILS % 7.8 % (0.0-6.0); LYMPHOCYTES % 21.0 % (18.0-39.1); MONOCYTES % 6.5 % (4.4-11.3); NEUTROPHILS % 63.9 % (38.7-80.0); RED CELL DISTRIBUTION WIDTH 20.3 % (11.7-14.4)
[2024-09-10 07:17] LABS: EST GLOMERULAR FILTRATION RATE 43.0 ML/MIN (>=60)
[2024-09-11] VITALS (8 sets, daily range): BP systolic 91–114; BP diastolic 42–63; PULSE 56–84; RESP 18–20; TEMP 97.2–98.4; O2SAT 96–100
[2024-09-11 07:04] LABS: BASOPHILS % 0.5 % (0.0-1.0); EOSINOPHILS % 7.3 % (0.0-6.0); LYMPHOCYTES % 23.1 % (18.0-39.1); MONOCYTES % 6.8 % (4.4-11.3); NEUTROPHILS % 62.0 % (38.7-80.0); RED CELL DISTRIBUTION WIDTH 20.7 % (11.7-14.4)
[2024-09-11 07:25] LABS: EST GLOMERULAR FILTRATION RATE 45.0 ML/MIN (>=60)
[2024-09-11 08:07] LABS: PLATELET ESTIMATE SLIGHTLY DECREASED; PLATELET MORPHOLOGY COMMENT NORMAL
[2024-09-11] MEDS: POTASSIUM CHLORIDE 20 MEQ TAB CR PO STA (17:16)
[2024-09-12 03:39] VITALS: BP 108/62; PULSE 70; RESP 17; TEMP 97.4; O2SAT 100
[2024-09-12 06:28] LABS: BASOPHILS % 0.4 % (0.0-1.0); EOSINOPHILS % 5.6 % (0.0-6.0); LYMPHOCYTES % 18.8 % (18.0-39.1); MONOCYTES % 6.8 % (4.4-11.3); NEUTROPHILS % 67.8 % (38.7-80.0); RED CELL DISTRIBUTION WIDTH 21.1 % (11.7-14.4)
[2024-09-12 07:16] LABS: EST GLOMERULAR FILTRATION RATE 48.0 ML/MIN (>=60)
[2024-09-12 08:15] VITALS: BP 119/70; PULSE 58; RESP 17; TEMP 97.9; O2SAT 99
[2024-09-12 12:05] VITALS: BP 105/56; PULSE 73; RESP 17; TEMP 97.7; O2SAT 100
[2024-09-12 16:05] VITALS: BP 117/54; PULSE 77; RESP 18; TEMP 98; O2SAT 99
[2024-09-12] MEDS: ENOXAPARIN 30 MG/0.3 ML SYR SC SCH (16:48)
[2024-09-12 20:00] VITALS: BP 98/52; PULSE 70; RESP 18; TEMP 97.6; O2SAT 100
[2024-09-12 21:51] VITALS: BP 93/53; PULSE 70; RESP 18; TEMP 97.6; O2SAT 100
[2024-09-13] VITALS (7 sets, daily range): BP systolic 91–113; BP diastolic 48–75; PULSE 71–76; RESP 17–18; TEMP 97.3–98; O2SAT 99–100
[2024-09-13] MEDS: PANTOPRAZOLE SOD 40 MG TABEC PO SCH (09:51)
[2024-09-13] MEDS: INSULIN GLARGINE 100 UNITS/ML VIAL SQ SCH (21:00)
[2024-09-14] VITALS (7 sets, daily range): BP systolic 100–123; BP diastolic 49–71; PULSE 72–79; RESP 17–20; TEMP 97.6–97.9; O2SAT 95–99
[2024-09-14 06:17] LABS: BASOPHILS % 0.3 % (0.0-1.0); EOSINOPHILS % 4.2 % (0.0-6.0); LYMPHOCYTES % 22.2 % (18.0-39.1); MONOCYTES % 8.7 % (4.4-11.3); NEUTROPHILS % 64.3 % (38.7-80.0); RED CELL DISTRIBUTION WIDTH 21.0 % (11.7-14.4)
[2024-09-14 07:05] LABS: EST GLOMERULAR FILTRATION RATE 49.0 ML/MIN (>=60)
[2024-09-14 08:59] LABS: EOSINOPHILS % (MANUAL) 1 % (0-7); LYMPHOCYTES % (MANUAL) 17 % (19-48); MONOCYTES % (MANUAL) 5 % (3.4-9.0); NEUTROPHILS % (MANUAL) 77 % (40-74); PLATELET ESTIMATE SLIGHTLY DECREASED; PLATELET MORPHOLOGY COMMENT NORMAL; RBC MORPHOLOGY COMMENT NORMAL
[2024-09-14] MEDS: POTASSIUM CHLORIDE 10MEQ EA PO ONE (12:21)
[2024-09-15] VITALS: BP 108/69; PULSE 71; RESP 18; TEMP 98.1; O2SAT 95
[2024-09-15 04:00] VITALS: BP 98/62; PULSE 75; RESP 18; TEMP 98.1; O2SAT 100
[2024-09-15 07:02] LABS: EST GLOMERULAR FILTRATION RATE 47.0 ML/MIN (>=60)
[2024-09-15 08:03] VITALS: BP 123/76; PULSE 78; RESP 18; TEMP 97.7; O2SAT 98
[2024-09-15 09:28] VITALS: BP 123/76; PULSE 78; RESP 18; TEMP 97.7; O2SAT 98
[2024-09-15] MEDS ORDERED: FUROSEMIDE40 MG PO (10:27)
[2024-09-15] MEDS ORDERED: METFORMIN HCL850 MG PO (10:27)
[2024-09-15] MEDS ORDERED: CRESTOR40 MG PO (10:27)
[2024-09-15 11:26] VITALS: BP 105/45; PULSE 88; RESP 18; TEMP 98.1; O2SAT 100
== END 2024-09-15 15:52 | disposition home health service (06) | DRG 811 ==
LOC: ER 17:09 → ERHOLD 19:33 → MED/SURG2 20:51 → OBSVTOIN 21:33
PROVIDERS: ADMIT Family Medicine Adult Medicine; ATTEND Family Medicine Adult Medicine
PROC: 02HV33Z Insertion of Infusion Device into Superior Vena Cava, Percutaneous Approach (ICD-10-PCS; 2024-09-04)
PROC: B548ZZA Ultrasonography of Superior Vena Cava, Guidance (ICD-10-PCS; 2024-09-04)
PROC: 30233N1 Transfusion of Nonautologous Red Blood Cells into Peripheral Vein, Percutaneous Approach (ICD-10-PCS; principal; 2024-09-05)
DX: D50.0 Iron deficiency anemia secondary to blood loss (chronic) (principal); I50.23 Acute on chronic systolic (congestive) heart failure; B37.49 Other urogenital candidiasis; E87.20 Acidosis, unspecified; K92.2 Gastrointestinal hemorrhage, unspecified; D61.818 Other pancytopenia; I11.0 Hypertensive heart disease with heart failure; N39.0 Urinary tract infection, site not specified; B96.20 Unspecified Escherichia coli [E. coli] as the cause of diseases classified elsewhere; E87.6 Hypokalemia; E11.65 Type 2 diabetes mellitus with hyperglycemia; R31.29 Other microscopic hematuria; E11.69 Type 2 diabetes mellitus with other specified complication; Z79.4 Long term (current) use of insulin; Z79.84 Long term (current) use of oral hypoglycemic drugs; I48.0 Paroxysmal atrial fibrillation; Z79.01 Long term (current) use of anticoagulants; I25.10 Atherosclerotic heart disease of native coronary artery without angina pectoris; Z95.5 Presence of coronary angioplasty implant and graft; K21.9 Gastro-esophageal reflux disease without esophagitis; E78.5 Hyperlipidemia, unspecified; R53.81 Other malaise; R53.83 Other fatigue; G47.00 Insomnia, unspecified; Z91.148 Patient's other noncompliance with medication regimen for other reason; Z85.3 Personal history of malignant neoplasm of breast; Z90.11 Acquired absence of right breast and nipple; Z85.51 Personal history of malignant neoplasm of bladder; Z87.891 Personal history of nicotine dependence; Z79.899 Other long term (current) drug therapy
CPT/HCPCS: 36415; 36569; 71045; 80048; 80053; 81001; 82607; 82728; 82746; 82948; 83540; 83735; 83880; 84132; 84466; 84484; 85014; 85018; 85025; 85045; 86850; 86900; 86920; 87086; 87186; 93005; 99252; 99284; J0696; J1650; J1756; J1815; J1938; J2470; J2997; J3475; J3480; J7050; P9016

== ENCOUNTER 2024-10-02 22:27 | Observation (INO) | payer MEDICARE ==
[~2024-10-02] VITALS: Ht 162.6 cm; Wt 74.4 kg
[~2024-10-02 22:27] MED LIST changes: +CRESTOR40 MG PEG; +CRESTOR40 MG PO; +FERROUS SULFAT325 MG PO; +INSULIN LI100 UNIT/2 SQ; +PANTOPRAZOLE SO40 MG PO; +POTASSIUM CHLO20 ME2 PO
[2024-10-02 22:37] VITALS: TEMP 97.5
[2024-10-02 23:42] LABS: EST GLOMERULAR FILTRATION RATE 39.0 ML/MIN (>=60)
[2024-10-03] VITALS (11 sets, daily range): BP systolic 99–123; BP diastolic 54–89; PULSE 72–80; RESP 16–20; TEMP 97–98; O2SAT 97–99
[2024-10-03 00:08] LABS: BASOPHILS % 0.1 % (0.0-1.0); EOSINOPHILS % 2.0 % (0.0-6.0); LYMPHOCYTES % 8.5 % (18.0-39.1); MONOCYTES % 6.8 % (4.4-11.3); NEUTROPHILS % 82.3 % (38.7-80.0); RED CELL DISTRIBUTION WIDTH 18.8 % (11.7-14.4)
[2024-10-03] MEDS: FUROSEMIDE INJ 10 MG/ML 4 ML VIAL IV ONE (01:16)
[2024-10-03] MEDS ORDERED: HYDRALAZINE HCL 20 MG/ML VIAL IV PRN (02:00)
[2024-10-03] MEDS ORDERED: POLYETHYLENE GLYCOL 3350 17 GM PACK PO PRN (02:00)
[2024-10-03] MEDS ORDERED: ACETAMINOPHEN 325 MG TAB PO PRN (02:00)
[2024-10-03] MEDS ORDERED: BISACODYL 10 MG SUPP PR PRN (02:00)
[2024-10-03] MEDS ORDERED: DEXTROSE 50% SYRINGE 50 ML IV PRN (02:00)
[2024-10-03] MEDS ORDERED: ONDANSETRON HCL INJ 2MG/ML 2ML 2 MG/ML VIAL IV PRN (02:00)
[2024-10-03] MEDS ORDERED: TRAZODONE HCL50 MG PO (06:12)
[2024-10-03] MEDS: INSULIN LISPRO 100 UNIT/1 ML 3ML VIAL SQ SCH (08:13)
[2024-10-03] MEDS: FERROUS SULFATE 325 MG TAB PO SCH (08:33)
[2024-10-03] MEDS: METOPROLOL SUCCINATE 25 MG TAB XL PO SCH (08:33)
[2024-10-03] MEDS: AMIODARONE HCL 200 MG TAB PO SCH (08:33)
[2024-10-03] MEDS: DOCUSATE SODIUM 100 MG CAP PO SCH (08:33)
[2024-10-03] MEDS: SENNOSIDES 8.6 MG TAB PO SCH (08:33)
[2024-10-03] MEDS: MIDODRINE HCL 5 MG TABLET PO SCH (08:34)
[2024-10-03] MEDS: INSULIN GLARGINE 100 UNITS/ML VIAL SQ SCH (21:00)
[2024-10-03] MEDS: TRAZODONE HCL 50 MG TAB PO SCH (21:18)
[2024-10-04 03:31] VITALS: BP 139/77; PULSE 71; RESP 18; TEMP 97.3; O2SAT 98
[2024-10-04 06:16] LABS: BASOPHILS % 0.5 % (0.0-1.0); EOSINOPHILS % 2.7 % (0.0-6.0); LYMPHOCYTES % 13.6 % (18.0-39.1); MONOCYTES % 11.0 % (4.4-11.3); NEUTROPHILS % 71.9 % (38.7-80.0); RED CELL DISTRIBUTION WIDTH 18.9 % (11.7-14.4)
[2024-10-04 06:42] LABS: EST GLOMERULAR FILTRATION RATE 42.0 ML/MIN (>=60)
[2024-10-04 08:15] VITALS: BP 128/76; PULSE 72; RESP 18; TEMP 97.6; O2SAT 98
[2024-10-04 09:00] VITALS: BP 128/76; PULSE 72; RESP 18; TEMP 97.6; O2SAT 98
[2024-10-04 13:06] VITALS: BP 107/65; PULSE 72; RESP 18; TEMP 97.2; O2SAT 100
[2024-10-04 14:24] VITALS: BP 107/65; PULSE 72; RESP 18; TEMP 97.2; O2SAT 100
== END 2024-10-04 16:45 | disposition home health service (06) ==
LOC: ER 22:40 → ERHOLD 10-03 00:31 → MED/SURG2 10-03 01:23
PROVIDERS: ADMIT Internal Medicine; ATTEND Internal Medicine
DX: I11.0 Hypertensive heart disease with heart failure (principal); I50.23 Acute on chronic systolic (congestive) heart failure; I34.0 Nonrheumatic mitral (valve) insufficiency; I48.0 Paroxysmal atrial fibrillation; D50.9 Iron deficiency anemia, unspecified; E11.59 Type 2 diabetes mellitus with other circulatory complications; Z79.4 Long term (current) use of insulin; I35.0 Nonrheumatic aortic (valve) stenosis; R54 Age-related physical debility; I25.10 Atherosclerotic heart disease of native coronary artery without angina pectoris; Z95.5 Presence of coronary angioplasty implant and graft; Z79.01 Long term (current) use of anticoagulants; E78.5 Hyperlipidemia, unspecified; Z85.3 Personal history of malignant neoplasm of breast; Z90.12 Acquired absence of left breast and nipple; Z85.89 Personal history of malignant neoplasm of other organs and systems; Z85.42 Personal history of malignant neoplasm of other parts of uterus; Z85.51 Personal history of malignant neoplasm of bladder; Z87.891 Personal history of nicotine dependence
CPT/HCPCS: 36415 ×2; 71045; 80048; 80053; 82948; 83880; 84484; 85025 ×2; 93005; 93925; 93970; 94799; 99284; G0378 ×2; J1938

== ENCOUNTER 2024-10-20 00:36 | Inpatient (IN) | payer MEDICARE, OTHER ==
[~2024-10-20] VITALS: Ht 162.6 cm; Wt 74.4 kg
[2024-10-20] VITALS (13 sets, daily range): BP systolic 103–132; BP diastolic 55–68; PULSE 72–83; RESP 16–20; TEMP 98.1–99.1; O2SAT 92–100
[2024-10-20 01:33] LABS: EST GLOMERULAR FILTRATION RATE 28.0 ML/MIN (>=60)
[2024-10-20 01:50] LABS: BASOPHILS % 0.2 % (0.0-1.0); EOSINOPHILS % 0.5 % (0.0-6.0); LYMPHOCYTES % 3.2 % (18.0-39.1); MONOCYTES % 5.9 % (4.4-11.3); NEUTROPHILS % 89.6 % (38.7-80.0); RED CELL DISTRIBUTION WIDTH 17.8 % (11.7-14.4)
[2024-10-20] MEDS ORDERED: DEXTROSE 50% SYRINGE 50 ML IV PRN ×2 (02:30→13:30)
[2024-10-20] MEDS: FUROSEMIDE INJ 10 MG/ML 4 ML VIAL IV ONE (03:57)
[2024-10-20] MEDS: INSULIN REGULAR, HUMAN 100 UNIT/1 ML SQ SCH (08:21)
[2024-10-20] MEDS: MIDODRINE HCL 5 MG TABLET PO SCH (15:06)
[2024-10-20] MEDS: FUROSEMIDE INJ 10 MG/ML 4 ML VIAL IV SCH (15:06)
[2024-10-20 16:12] LABS: LEUKOCYTE ESTERASE ,URINE LARGE (NEGATIVE); URINE UROBILINOGEN 0.2 mg/dL (0.2 - 1)
[2024-10-20 16:13] LABS: PROTEIN,URINE DIPSTICK 2+ (NEGATIVE)
[2024-10-20 16:17] LABS: EPITHELIAL CELLS,URINE FEW /LPF; WBC,URINE (MAN) >50 /HPF (0-5)
[2024-10-20] MEDS: INSULIN LISPRO 100 UNIT/1 ML 3ML VIAL SQ SCH (16:40)
[2024-10-20] MEDS: INSULIN GLARGINE 100 UNITS/ML VIAL SQ SCH (21:20)
[2024-10-20] MEDS: TRAZODONE HCL 50 MG TAB PO SCH (21:54)
[2024-10-21 00:47] VITALS: BP 117/64; PULSE 82; RESP 17; TEMP 98.8; O2SAT 99
[2024-10-21 04:29] VITALS: BP 134/51; PULSE 75; RESP 16; TEMP 97.8; O2SAT 96
[2024-10-21 07:51] VITALS: BP 116/54; PULSE 78; RESP 18; TEMP 100.2; O2SAT 100
[2024-10-21 08:42] VITALS: BP 116/54; PULSE 78; RESP 18; TEMP 100.2; O2SAT 100
[2024-10-21] MEDS: PANTOPRAZOLE SOD 40 MG TABEC PO SCH (09:50)
[2024-10-21] MEDS: FERROUS SULFATE 325 MG TAB PO SCH (09:50)
[2024-10-21] MEDS: TAMOXIFEN CITRATE 10 MG TAB PO SCH (09:50)
[2024-10-21] MEDS: AMIODARONE HCL 200 MG TAB PO SCH (09:50)
[2024-10-21] MEDS: METOPROLOL SUCCINATE 25 MG TAB XL PO SCH (09:51)
[2024-10-21 09:57] LABS: EST GLOMERULAR FILTRATION RATE 33.0 ML/MIN (>=60)
[2024-10-21] MEDS ORDERED: POLYETHYLENE GLYCOL 3350 17 GM PACK PO PRN (11:00)
[2024-10-21] MEDS ORDERED: ACETAMINOPHEN 325 MG TAB PO PRN ×2 (11:00)
[2024-10-21] MEDS ORDERED: BISACODYL 10 MG SUPP PR PRN (11:00)
[2024-10-21] MEDS: POTASSIUM CHLORIDE 10MEQ EA PO ONE ×3 (12:05→20:41)
[2024-10-21] MEDS: MIDODRINE 2.5 MG TAB PO SCH (12:47)
[2024-10-21] MEDS: GUAIFENESIN/DEXTROMETHORPHAN LIQD 5 ML UDC NG PRN (12:56)
[2024-10-21] MEDS: DICLOFENAC SOD 1% GEL 100 GM TUBE TP SCH (15:25)
[2024-10-21 17:33] LABS: BASOPHILS % 0.6 % (0.0-1.0); EOSINOPHILS % 1.5 % (0.0-6.0); LYMPHOCYTES % 9.6 % (18.0-39.1); MONOCYTES % 9.5 % (4.4-11.3); NEUTROPHILS % 78.4 % (38.7-80.0); RED CELL DISTRIBUTION WIDTH 17.7 % (11.7-14.4)
[2024-10-21] MEDS: MAGNESIUM SULFATE 2GM/50ML 50 ML IV ONE (17:42)
[2024-10-21 21:00] VITALS: BP 125/78; PULSE 78; RESP 18; TEMP 100.2; O2SAT 100
[2024-10-21 21:18] VITALS: BP 104/54; PULSE 83; RESP 17; TEMP 98.4; O2SAT 96
[2024-10-22 00:43] VITALS: BP 106/53; PULSE 76; RESP 16; TEMP 98.4; O2SAT 97
[2024-10-22 04:33] VITALS: BP 92/45; PULSE 74; RESP 20; TEMP 97.5; O2SAT 99
[2024-10-22] MEDS: SENNOSIDES 8.6 MG TAB PO SCH (08:54)
[2024-10-22] MEDS: SPIRONOLACTONE 25 MG TAB PO SCH (08:55)
[2024-10-22] MEDS: DOCUSATE SODIUM 100 MG CAP PO SCH (08:56)
[2024-10-22 09:27] LABS: BASOPHILS % 0.4 % (0.0-1.0); EOSINOPHILS % 2.3 % (0.0-6.0); LYMPHOCYTES % 11.2 % (18.0-39.1); MONOCYTES % 11.0 % (4.4-11.3); NEUTROPHILS % 74.7 % (38.7-80.0); RED CELL DISTRIBUTION WIDTH 17.8 % (11.7-14.4)
[2024-10-22 09:43] LABS: EST GLOMERULAR FILTRATION RATE 36.0 ML/MIN (>=60)
[2024-10-22] MEDS: POTASSIUM CHLORIDE 10MEQ EA PO ONE (12:03)
[2024-10-22 21:15] VITALS: BP 104/58; PULSE 75; RESP 16; TEMP 98.2; O2SAT 95
[2024-10-23] VITALS (8 sets, daily range): BP systolic 90–109; BP diastolic 50–58; PULSE 72–81; RESP 16–20; TEMP 97.6–98.9; O2SAT 95–100
[2024-10-23 06:03] LABS: BASOPHILS % 0.2 % (0.0-1.0); EOSINOPHILS % 4.6 % (0.0-6.0); LYMPHOCYTES % 15.6 % (18.0-39.1); MONOCYTES % 12.3 % (4.4-11.3); NEUTROPHILS % 67.1 % (38.7-80.0); RED CELL DISTRIBUTION WIDTH 17.9 % (11.7-14.4)
[2024-10-23 06:24] LABS: EST GLOMERULAR FILTRATION RATE 37.0 ML/MIN (>=60)
[2024-10-23] MEDS: POTASSIUM CHLORIDE 10MEQ EA PO ONE (08:46)
[2024-10-23] MEDS: POTASSIUM CHLORIDE 20 MEQ TAB CR PO SCH (14:06)
[2024-10-24 04:00] VITALS: BP 99/64; PULSE 76; RESP 18; TEMP 98; O2SAT 100
[2024-10-24 06:34] LABS: BASOPHILS % 0.2 % (0.0-1.0); EOSINOPHILS % 3.2 % (0.0-6.0); LYMPHOCYTES % 10.5 % (18.0-39.1); MONOCYTES % 10.3 % (4.4-11.3); NEUTROPHILS % 75.2 % (38.7-80.0); RED CELL DISTRIBUTION WIDTH 17.9 % (11.7-14.4)
[2024-10-24 07:03] LABS: EST GLOMERULAR FILTRATION RATE 36.0 ML/MIN (>=60)
[2024-10-24 08:00] VITALS: BP 99/64; PULSE 76; RESP 18; TEMP 98; O2SAT 100
[2024-10-24 08:09] VITALS: BP 107/53; PULSE 78; RESP 16; TEMP 97.9; O2SAT 100
[2024-10-24] MEDS: FUROSEMIDE 40 MG TAB PO SCH (08:29)
[2024-10-24] MEDS: LEVOFLOXACIN 500 MG TAB PO SCH ×2 (11:33→17:05)
[2024-10-24 11:35] VITALS: BP 113/63; PULSE 83; RESP 18; TEMP 98.3; O2SAT 97
[2024-10-24] MEDS: POTASSIUM CHLORIDE 10MEQ EA PO ONE (12:27)
[2024-10-24 16:02] VITALS: BP 129/68; PULSE 96; RESP 16; TEMP 97.8; O2SAT 97
[2024-10-24 20:00] VITALS: BP 110/52; PULSE 79; RESP 18; TEMP 98.1; O2SAT 99
[2024-10-25] VITALS (7 sets, daily range): BP systolic 98–128; BP diastolic 40–128; PULSE 76–93; RESP 17–23; TEMP 97.7–99.1; O2SAT 95–100
[2024-10-25 06:16] LABS: BASOPHILS % 0.2 % (0.0-1.0); EOSINOPHILS % 1.9 % (0.0-6.0); LYMPHOCYTES % 11.5 % (18.0-39.1); MONOCYTES % 7.4 % (4.4-11.3); NEUTROPHILS % 78.0 % (38.7-80.0); RED CELL DISTRIBUTION WIDTH 18.3 % (11.7-14.4)
[2024-10-25 06:26] LABS: EST GLOMERULAR FILTRATION RATE 43.0 ML/MIN (>=60)
[2024-10-25] MEDS: ENOXAPARIN 30 MG/0.3 ML SYR SC SCH (17:56)
[2024-10-26 00:06] VITALS: BP 102/53; PULSE 82; RESP 18; TEMP 97.6; O2SAT 96
[2024-10-26 05:43] LABS: BASOPHILS % 0.3 % (0.0-1.0); EOSINOPHILS % 1.9 % (0.0-6.0); LYMPHOCYTES % 13.7 % (18.0-39.1); MONOCYTES % 6.3 % (4.4-11.3); NEUTROPHILS % 77.0 % (38.7-80.0); RED CELL DISTRIBUTION WIDTH 18.4 % (11.7-14.4)
[2024-10-26 06:03] LABS: EST GLOMERULAR FILTRATION RATE 44.0 ML/MIN (>=60); LACTATE DEHYDROGENASE 185.0 IU/L (125-220)
[2024-10-26 08:56] LABS: INR 1.32
[2024-10-26 09:00] VITALS: BP 104/56; PULSE 81; RESP 17; TEMP 97.8; O2SAT 98
[2024-10-26 09:54] VITALS: BP 100/56; PULSE 78; RESP 18; TEMP 97.6; O2SAT 96
[2024-10-26] MEDS: POTASSIUM CHLORIDE 10MEQ EA PO ONE (12:33)
[2024-10-26 16:29] VITALS: BP 106/56; PULSE 74; RESP 18; TEMP 98; O2SAT 96
[2024-10-26 18:21] VITALS: BP 114/61; PULSE 76; RESP 18; TEMP 97.8; O2SAT 100
[2024-10-27] MEDS ORDERED: POTASSIUM CHLORIDE 10MEQ EA PO SCH (09:00)
[2024-10-31 10:49] LABS: TOTAL PROTEIN,BODY FLUID 2.3 g/dL
== END 2024-10-26 18:00 | DRG 291 ==
LOC: ER 00:43 → ERHOLD 02:28 → MED/SURG 04:19 → OBSVTOIN 10-21 12:35
PROVIDERS: ADMIT Internal Medicine; ATTEND Internal Medicine
PROC: 0W993ZZ Drainage of Right Pleural Cavity, Percutaneous Approach (ICD-10-PCS; principal; 2024-10-25)
DX: I11.0 Hypertensive heart disease with heart failure (principal); I50.43 Acute on chronic combined systolic (congestive) and diastolic (congestive) heart failure; N39.0 Urinary tract infection, site not specified; J90 Pleural effusion, not elsewhere classified; B96.1 Klebsiella pneumoniae [K. pneumoniae] as the cause of diseases classified elsewhere; B96.20 Unspecified Escherichia coli [E. coli] as the cause of diseases classified elsewhere; A49.02 Methicillin resistant Staphylococcus aureus infection, unspecified site; E11.9 Type 2 diabetes mellitus without complications; E78.00 Pure hypercholesterolemia, unspecified; I48.0 Paroxysmal atrial fibrillation; I25.10 Atherosclerotic heart disease of native coronary artery without angina pectoris; K21.9 Gastro-esophageal reflux disease without esophagitis; R53.81 Other malaise; R11.10 Vomiting, unspecified; Z79.4 Long term (current) use of insulin; Z79.84 Long term (current) use of oral hypoglycemic drugs; Z98.61 Coronary angioplasty status; Z85.3 Personal history of malignant neoplasm of breast; Z90.49 Acquired absence of other specified parts of digestive tract; Z90.11 Acquired absence of right breast and nipple; Z89.022 Acquired absence of left finger(s); Z88.0 Allergy status to penicillin; Z88.1 Allergy status to other antibiotic agents; Z85.51 Personal history of malignant neoplasm of bladder
CPT/HCPCS: 32555; 36415; 71045; 71250; 74470; 76604; 80048; 80053; 81001; 82465; 82550; 82948; 83615; 83735; 83880; 84132; 84484; 85025; 85610; 87070; 87086; 87186; 87205; 94799; 96372; 99252; 99284; G0378; J0696; J1650; J1815; J1938; J2470; J3475